=== PATIENT | male | born 1960 | race Caucasian/White ===

== ENCOUNTER → 2017-03-18 | Outpatient (CLI) | payer OTHER ==
[2016-05-14 12:10] VITALS: BP 139/81
[~2017-03-18] MED LIST: ASPI81TA2 PO; ATOR20TA58 PO; BUDE10.2 IH; BUSP30TA PO; HALO5TAB PO; IPRA3AMP IH; LEVO500T38 PO; LORA1TAB PO; MONT10TA6 PO; PRED-220 PO; PRED1TAB3 PO; QUET400T PO; SERT100T8 PO; TOPI50TA4 PO
--- NOTE | 2017-03-18 16:05 | RAD ---
Indication cough. Shortness of air. 2 AP views and a lateral view of the chest were obtained. Note is made of a previous examination 01/31/2016. There is moderate hyperexpansion and there are suggested background changes of emphysema. The heart and pulmonary vessels are within normal limits. An acute parenchymal infiltrate is not seen. Significant pleural fluid is not present. There is no pneumothorax. IMPRESSION: Chronic changes. No acute finding seen in the chest
== END | disposition home or self-care (01) ==
LOC: RAD 15:40
PROVIDERS: ATTEND Internal Medicine
DX: J20.8 Acute bronchitis due to other specified organisms (principal)
CPT/HCPCS: 71020

== ENCOUNTER 2017-03-21 10:36 | Inpatient (IN) | payer OTHER ==
[~2017-03-21] VITALS: Ht 188 cm; Wt 81.6 kg
[2017-03-21 12:30] VITALS: BP 115/88
[2017-03-21] MEDS ORDERED: IPRATRPIUM/ALBUTEROL 0.5/2.5MG 3 ML NEBU. NEB SCH (14:00)
[2017-03-21 14:06] LABS: BASO % 0 % (0-3); EOS % 0 % (0-3); HEMATOCRIT 42.6 % (39.0-53.0); HEMOGLOBIN 14.1 g/dL (13.0-17.5); LYMPH # 0.7 x10^3/uL (1.0-4.8); LYMPH % 8 % (24-48); MEAN CORPUSCULAR HEMOGLOBIN 32 pg (25-35); MEAN CORPUSCULAR HGB CONC 33 g/dL (31-37); MEAN CORPUSCULAR VOLUME 97 fL (79-100); MONO % 2 % (0-9); NEUT % 90 % (31-73); PLATELET COUNT 243 x10^3/uL (140-400); RED BLOOD COUNT 4.37 x10^6/uL (4.30-5.70); RED CELL DISTRIBUTION WIDTH 13.5 % (11.5-14.5); WHITE BLOOD COUNT 9.2 x10^3/uL (4.0-11.0)
[2017-03-21 14:10] LABS: ALBUMIN 3.4 g/dL (3.4-5.0); TOTAL PROTEIN 6.7 g/dL (6.4-8.2)
[2017-03-21 14:11] LABS: CREATININE 1.2 mg/dL (0.7-1.3); GFR 62.2; POTASSIUM 5.1 mmol/L (3.5-5.1); TOTAL BILIRUBIN 0.4 mg/dL (0.2-1.0)
[2017-03-21 14:32] LABS: PLT ESTIMATE ADEQUATE (ADEQUATE)
[2017-03-21] MEDS ORDERED: ACETAMINOPHEN 325 MG TABLET. PO PRN (14:45)
[2017-03-21] MEDS ORDERED: ALBUTEROL SULFATE 2.5 MG/3 ML NEBU. NEB PRN (14:45)
[2017-03-21 15:00] VITALS: BP 134/73
--- NOTE | 2017-03-21 15:07 | RAD ---
Indication shortness of breath. Duration of symptoms 2 weeks. PA and lateral views of the chest were obtained. Comparison is made to an examination 3 days earlier. Background changes of emphysema and/or fibrosis are noted. There is moderate hyperexpansion. The heart and pulmonary vessels are within normal limits. A definite acute parenchymal infiltrate in either lung is not seen. A significant change relative to the prior study is not apparent. IMPRESSION: Chronic changes. No definite acute finding or significant change
[2017-03-21] MEDS ORDERED: ProAir HFA IH (15:57)
[2017-03-21] MEDS ORDERED: VERAPAMIL 80 MG PO (15:57)
[2017-03-21] MEDS ORDERED: SERT100T PO (15:57)
[2017-03-21] MEDS ORDERED: ATOR20TA58 PO (15:57)
[2017-03-21] MEDS ORDERED: PANT40TA3 PO (15:57)
[2017-03-21] MEDS ORDERED: HALO2TAB PO (15:57)
[2017-03-21] MEDS ORDERED: CLON1TAB3 PO (15:57)
[2017-03-21] MEDS ORDERED: methylPREDNISolone SOD SUCC PF 125 MG/2 ML VIAL. IV SCH (16:00)
--- NOTE | 2017-03-21 16:34 | PDOC ---
Provider Note Provider Note dictated JOSE LUIS VELAZQUEZ MD Mar 21, 2017 16:34
[2017-03-21] MEDS: IPRATRPIUM/ALBUTEROL 0.5/2.5MG 3 ML NEBU. NEB SCH ×2 (16:45→20:02)
[2017-03-21] MEDS: CEFTRIAXONE SODIUM 1 GM in IV NORMAL SALINE 50ML 50 ML IV SCH (16:52)
[2017-03-21] MEDS: VERAPAMIL 40 MG TABLET. PO SCH ×2 (16:53→20:49)
[2017-03-21] MEDS: AZITHROMYCIN 250 MG TABLET. PO SCH (16:53)
[2017-03-21] MEDS: HALOPERIDOL 2 MG TABLET. PO SCH ×2 (16:53→20:50)
[2017-03-21] MEDS: methylPREDNISolone SOD SUCC PF 125 MG/2 ML VIAL. IV SCH ×2 (16:54→20:53)
[2017-03-21] MEDS: ASPIRIN CHEWABLE 81 MG TABLET. PO SCH (16:54)
--- NOTE | 2017-03-21 16:54 | CONS ---
DATE OF CONSULTATION: 03/21/2017 ATTENDING PHYSICIAN: Dr. Cristy Espana. REASON FOR CONSULTATION: Respiratory failure and dyspnea. HISTORY OF PRESENT ILLNESS: The patient is a 56-year-old male who has history of [id number] tobacco history and still continues to smoke cigarettes. He was here in the hospital in January with COPD exacerbation and now comes back to the hospital with complaint of shortness of breath. He has failed outpatient treatment. He still has a cough but is unable to produce any sputum. He feels like it is stuck in his chest. No fever, no chills. No chest pain, no headache. No nausea, vomiting, or diarrhea. He was seen in the office as a result. Since he failed outpatient treatment, he was hospitalized. A chest x-ray was reviewed, and it does not show any definite consolidation. He is currently on 2 liters of oxygen which he normally uses at home. PAST MEDICAL HISTORY: Significant for COPD, suspect severe history of carotid artery stenosis, history of pneumonia, CVA, depression, bipolar disorder, anxiety, chronic renal insufficiency, and CKD II. PAST SURGICAL HISTORY: Sinus surgery and hernia repair. FAMILY HISTORY: Mother with lung disease and heart disease. Dad had [place] in the 60s and . SOCIAL HISTORY: History of tobaccoism for last 40 years, a pack per day, and continues to smoke cigarettes. REVIEW OF SYSTEMS: Twelve-point systems obtained. Pertinent positives are discussed in my history of present illness, otherwise noncontributory. All systems that were negative were reviewed as well. PHYSICAL EXAMINATION: GENERAL: He is awake, following commands, mildly tachypneic. VITAL SIGNS: Blood pressure 134/73, afebrile, pulse ox 98% on 2 liters. NECK: Supple. LUNGS: With bilateral expiratory wheezes. CARDIOVASCULAR: Regular rate. ABDOMEN: Soft, nontender. EXTREMITIES: With no pitting edema. LABORATORY DATA: Reviewed. Sodium 139, potassium 5.1, BUN 13, creatinine 1.2, and white cell count 9.2. IMPRESSION: 1. Acute exacerbation of chronic obstructive pulmonary disease in a patient who has been a smoker for 40 years, and I suspect he has severe chronic obstructive pulmonary disease. 2. History of chronic respiratory failure. 3. Acute bronchitis with no definite consolidation seen on the chest x-ray. RECOMMENDATIONS: 1. Continue with present oxygen at 2 liters. 2. Change the dose of IV Solu-Medrol to 60 IV q. 8 h. 3. Increase DuoNebs to q. 4 h. 4. Mucolytics to help break the thick secretions. 5. Smoking cessation counseling provided. 6. Continue with empiric antibiotic. 7. We will follow along with you. JOSE LUIS VELAZQUEZ MD DR: ARSALAN/edu JOB#: [id number] / [id number] CARLOZ
[2017-03-21 19:49] VITALS: BP 128/73
[2017-03-21] MEDS: BUDESONIDE 0.5 MG/2 ML NEBU. NEB SCH (20:02)
[2017-03-21] MEDS: CLONAZEPAM 1 MG TABLET. PO SCH (20:49)
[2017-03-21] MEDS: QUEtiapine 50 MG TAB.ER.24H. PO SCH (20:50)
[2017-03-21] MEDS: MONTELUKAST SODIUM 10 MG TABLET. PO SCH (20:50)
[2017-03-21] MEDS: busPIRone 10 MG TABLET. PO SCH (20:50)
[2017-03-21] MEDS: ATORVASTATIN CALCIUM 20 MG TABLET PO SCH (20:50)
[2017-03-21] MEDS: GUAIFENESIN ER 600 MG TABLET.ER PO SCH (20:50)
[2017-03-21 23:15] VITALS: BP 126/70
[2017-03-22] MEDS: IPRATRPIUM/ALBUTEROL 0.5/2.5MG 3 ML NEBU. NEB SCH ×6 (00:02→23:48)
[2017-03-22 03:35] VITALS: BP 95/49
[2017-03-22 06:01] LABS: BASO % 0 % (0-3); EOS % 0 % (0-3); HEMATOCRIT 40.3 % (39.0-53.0); HEMOGLOBIN 13.2 g/dL (13.0-17.5); LYMPH # 0.4 x10^3/uL (1.0-4.8); LYMPH % 4 % (24-48); MEAN CORPUSCULAR HEMOGLOBIN 32 pg (25-35); MEAN CORPUSCULAR HGB CONC 33 g/dL (31-37); MEAN CORPUSCULAR VOLUME 99 fL (79-100); MONO % 2 % (0-9); NEUT % 94 % (31-73); PLATELET COUNT 213 x10^3/uL (140-400); RED BLOOD COUNT 4.09 x10^6/uL (4.30-5.70); RED CELL DISTRIBUTION WIDTH 13.7 % (11.5-14.5); WHITE BLOOD COUNT 10.5 x10^3/uL (4.0-11.0)
[2017-03-22 06:19] LABS: CREATININE 1.4 mg/dL (0.7-1.3); GFR 52.1; POTASSIUM 4.5 mmol/L (3.5-5.1)
[2017-03-22 07:00] VITALS: BP 104/56
[2017-03-22] MEDS: methylPREDNISolone SOD SUCC PF 125 MG/2 ML VIAL. IV SCH ×3 (08:24→21:07)
[2017-03-22] MEDS: busPIRone 10 MG TABLET. PO SCH ×2 (08:25→21:01)
[2017-03-22] MEDS: VERAPAMIL 40 MG TABLET. PO SCH ×3 (08:25→21:01)
[2017-03-22] MEDS: ASPIRIN CHEWABLE 81 MG TABLET. PO SCH (08:25)
[2017-03-22] MEDS: PANTOPRAZOLE 40 MG TABLET.DR. PO SCH (08:26)
[2017-03-22] MEDS: GUAIFENESIN ER 600 MG TABLET.ER PO SCH ×2 (08:26→21:02)
[2017-03-22] MEDS: AZITHROMYCIN 250 MG TABLET. PO SCH ×2 (08:26→09:00)
[2017-03-22] MEDS: SERTRALINE 50 MG TABLET. PO SCH (08:26)
[2017-03-22] MEDS: HALOPERIDOL 2 MG TABLET. PO SCH ×2 (08:26→21:02)
--- NOTE | 2017-03-22 08:55 | ACF ---
Admit Criteria Forms Admit Criteria Forms Admit Criteria Forms COPD Clinical Indications for Admission to Inpatient Care (Place 'X' for any and all applicable criteria): Admission is indicated for ANY ONE of the following (1)(2)(3): [X]I. Acute exacerbation by high-risk comorbidity (e.g., pneumonia, dysrhythmia, heart failure, pleural effusion, pneumothorax) or severe underlying COPD (e.g., steroid dependent) [ ]II. Inpatient admission required rather than observation care (see Chronic Obstructive Pulmonary Disease: Observation Care) because of ANY ONE of the following: [ ]a) New or pre-existing signs or symptoms of COPD (eg, dyspnea or Tachypnea at rest or with minimal activity) that persist despite outpatient and observation care treatment [ ]b) New-onset hypoxemia (room air SaO2 less than 90%, PO2 less than 60 mm Hg (8.0 kPa)) that persists despite outpatient and observation care treatment [ ]c) Worsening of pre-existing hypoxemia (eg, new or increased requirement for supplemental oxygen to maintain oxygenation at baseline level) that persists despite outpatient and observation care treatment, with oxygen treatment needs performable only in acute inpatient setting [ ]d) Hypercarbia (PCO2 greater than 40 mm Hg (5.3 kPa))-induced respiratory acidosis (pH less than 7.35) that persists despite outpatient and observation care treatment [ ]e) Supplemental oxygen or respiratory treatments for over 24 hours that are performable only in acute inpatient setting [ ]f) Chest tube placement with active evacuation (e.g., suction, drainage) (5) [ ]g) Other condition, treatment or monitoring requiring inpatient admission [ ]III. Planned invasive surgical or diagnostic procedures requiring acute- care hospitalization [ ]IV. Acute respiratory failure (e.g., uncompensated hypercarbia, severe hypoxemia) [ ]V. Severe comorbid condition (e.g., severe steroid myopathy, acute vertebral fracture) that has acutely worsened pulmonary function [ ]. Confusion state, lethargy, obtundation, stupor or coma Extended stay beyond goal length of stay may be needed for (31)(32): [ ]a ) Respiratory Failure. [ ]b) Severe or persisting hypoxemia or hypercarbia [ ]c) Severe or persistent dyspnea [ ]d) Comorbidities (e.g. chronic heart failure, atrial fibrillation with rapid response, pneumonia) [ ]e) Malnutrition The original [employer] content created by [facility] has been revised. The portions of the content which have been revised are identified through the use of italic text or in bold, and [facility] has neither reviewed nor approved the modified material. All other unmodified content is copyright [facility]. Please see references footnoted in the original [facility] [employer] edition 2016 SALEEM LOPEZ Mar 22, 2017 08:55
--- NOTE | 2017-03-22 09:00 | PDOC1 ---
STEVE MARTIN PASSENGER SERVICE REPRESENTATIVE 03/22/17 0900: HISTORY AND PHYSICAL Chief Complaint Chief Complaint This 56 year old male has been admitted with a chief complaint of acute bronchitis/AECOPD out patient treatment failure. He has been seen in the office since last week with AB and AECOPD. He was given cipro 500mg bid, Prednisone 60mg x 2d with tapering dose and to continue duoneb treatments qid. Three days later he was seen in the office with no improvement. BS remained coarse with wheezing. His prednisone was continued at 40mg daily for 3 additional days and to start tapering then. Obtain mucinex 1200mg bid and continue nebulizer treatments. Yesterday he was seen in the office with audible loose chest congestion and dyspnea had not improved. His BS remained coarse and decreased LL bilaterally. He was directly admitted to [facility]. Past Medical History Cardiovascular: HTN, Hyperlipidemia, Other Pulmonary: COPD, Pneumonia CENTRAL NERVOUS SYSTEM: CVA, Other Psych: Anxiety, Bipolar, Depression Renal/: Chronic renal insuff (CKD II ) Past Surgical History Past Surgical History: Hernia Repair Past Family History Family History: Cancer, Heart Disease, Hypertension Past Social History PSH h/o tobacco, negative h/o ETOH or illicit drug use. Review of Symptoms Review of Symptoms A 14 point ROS was completed with the following noted as positive: per HPI cough non productive, dyspnea, wheezing Other systems reviewed and negative. Medications Medications reviewed and reconciled Allergy Allergies Coded Allergies Type Severity Reaction Last Updated Verified codeine Allergy Intermediate RASH 05/14/16 Yes Physical Exam Physical Exam General appearance - alert, ill appearing, and in no distress Mental Status - alert, oriented to person, place, and time, affect appropriate to mood Head - normal Chest - increased areation, chest rattling ceased, + wheezing insp/exp throughout Heart - S1 and S2 normal Abdomen - soft, nontender, nondistended, no masses or organomegaly Neurological - alert and oriented Musculoskeletal - no muscular tenderness noted Extremities - no pedal edema Skin - warm and dry VTE Prophylaxis Ordered VTE Prophylaxis Devices: Yes VTE Pharmacological Prophylaxi: No Assessment Labs Laboratory Tests Test 03/21/17 13:45 03/22/17 05:50 White Blood Count 9.2x10^3/uL (4.0-11.0) 10.5x10^3/uL (4.0-11.0) Red Blood Count 4.37x10^6/uL (4.30-5.70) 4.09x10^6/uL (4.30-5.70) Hemoglobin 14.1g/dL (13.0-17.5) 13.2g/dL (13.0-17.5) Hematocrit 42.6% (39.0-53.0) 40.3% (39.0-53.0) Mean Corpuscular Volume 97fL (79-100) 99fL (79-100) Mean Corpuscular Hemoglobin 32pg (25-35) 32pg (25-35) Mean Corpuscular Hemoglobin Concent 33g/dL (31-37) 33g/dL (31-37) Red Cell Distribution Width 13.5% (11.5-14.5) 13.7% (11.5-14.5) Platelet Count 243x10^3/uL (140-400) 213x10^3/uL (140-400) Neutrophils (%) (Auto) 90% (31-73) 94% (31-73) Lymphocytes (%) (Auto) 8% (24-48) 4% (24-48) Monocytes (%) (Auto) 2% (0-9) 2% (0-9) Eosinophils (%) (Auto) 0% (0-3) 0% (0-3) Basophils (%) (Auto) 0% (0-3) 0% (0-3) Neutrophils # (Auto) 8.3x10^3uL (1.8-7.7) 9.8x10^3uL (1.8-7.7) Lymphocytes # (Auto) 0.7x10^3/uL (1.0-4.8) 0.4x10^3/uL (1.0-4.8) Monocytes # (Auto) 0.2x10^3/uL (0.0-1.1) 0.2x10^3/uL (0.0-1.1) Eosinophils # (Auto) 0.0x10^3/uL (0.0-0.7) 0.0x10^3/uL (0.0-0.7) Basophils # (Auto) 0.0x10^3/uL (0.0-0.2) 0.0x10^3/uL (0.0-0.2) Segmented Neutrophils % 90% (35-66) Lymphocytes % 6% (24-48) Atypical Lymphocytes % (Manual) 1% (0-0) Monocytes % 3% (0-10) Platelet Estimate Adequate (ADEQUATE) Sodium Level 139mmol/L (136-145) 141mmol/L (136-145) Potassium Level 5.1mmol/L (3.5-5.1) 4.5mmol/L (3.5-5.1) Chloride Level 101mmol/L (98-107) 102mmol/L (98-107) Carbon Dioxide Level 35mmol/L (21-32) 28mmol/L (21-32) Anion Gap 3 (6-14) 11 (6-14) Blood Urea Nitrogen 13mg/dL (8-26) 24mg/dL (8-26) Creatinine 1.2mg/dL (0.7-1.3) 1.4mg/dL (0.7-1.3) Estimated GFR (Cockcroft-Gault) 62.2 52.1 BUN/Creatinine Ratio 11 (6-20) Glucose Level 122mg/dL (70-99) 143mg/dL (70-99) Calcium Level 9.0mg/dL (8.5-10.1) 9.0mg/dL (8.5-10.1) Total Bilirubin 0.4mg/dL (0.2-1.0) Aspartate Amino Transf (AST/SGOT) 12U/L (15-37) Alanine Aminotransferase (ALT/SGPT) 21U/L (16-63) Alkaline Phosphatase 76U/L (46-116) Total Protein 6.7g/dL (6.4-8.2) Albumin 3.4g/dL (3.4-5.0) Albumin/Globulin Ratio 1.0 (1.0-1.7) Laboratory Tests Test 03/21/17 13:45 03/22/17 05:50 White Blood Count 9.2x10^3/uL (4.0-11.0) 10.5x10^3/uL (4.0-11.0) Red Blood Count 4.37x10^6/uL (4.30-5.70) 4.09x10^6/uL (4.30-5.70) Hemoglobin 14.1g/dL (13.0-17.5) 13.2g/dL (13.0-17.5) Hematocrit 42.6% (39.0-53.0) 40.3% (39.0-53.0) Mean Corpuscular Volume 97fL (79-100) 99fL (79-100) Mean Corpuscular Hemoglobin 32pg (25-35) 32pg (25-35) Mean Corpuscular Hemoglobin Concent 33g/dL (31-37) 33g/dL (31-37) Red Cell Distribution Width 13.5% (11.5-14.5) 13.7% (11.5-14.5) Platelet Count 243x10^3/uL (140-400) 213x10^3/uL (140-400) Neutrophils (%) (Auto) 90% (31-73) 94% (31-73) Lymphocytes (%) (Auto) 8% (24-48) 4% (24-48) Monocytes (%) (Auto) 2% (0-9) 2% (0-9) Eosinophils (%) (Auto) 0% (0-3) 0% (0-3) Basophils (%) (Auto) 0% (0-3) 0% (0-3) Neutrophils # (Auto) 8.3x10^3uL (1.8-7.7) 9.8x10^3uL (1.8-7.7) Lymphocytes # (Auto) 0.7x10^3/uL (1.0-4.8) 0.4x10^3/uL (1.0-4.8) Monocytes # (Auto) 0.2x10^3/uL (0.0-1.1) 0.2x10^3/uL (0.0-1.1) Eosinophils # (Auto) 0.0x10^3/uL (0.0-0.7) 0.0x10^3/uL (0.0-0.7) Basophils # (Auto) 0.0x10^3/uL (0.0-0.2) 0.0x10^3/uL (0.0-0.2) Segmented Neutrophils % 90% (35-66) Lymphocytes % 6% (24-48) Atypical Lymphocytes % (Manual) 1% (0-0) Monocytes % 3% (0-10) Platelet Estimate Adequate (ADEQUATE) Sodium Level 139mmol/L (136-145) 141mmol/L (136-145) Potassium Level 5.1mmol/L (3.5-5.1) 4.5mmol/L (3.5-5.1) Chloride Level 101mmol/L (98-107) 102mmol/L (98-107) Carbon Dioxide Level 35mmol/L (21-32) 28mmol/L (21-32) Anion Gap 3 (6-14) 11 (6-14) Blood Urea Nitrogen 13mg/dL (8-26) 24mg/dL (8-26) Creatinine 1.2mg/dL (0.7-1.3) 1.4mg/dL (0.7-1.3) Estimated GFR (Cockcroft-Gault) 62.2 52.1 BUN/Creatinine Ratio 11 (6-20) Glucose Level 122mg/dL (70-99) 143mg/dL (70-99) Calcium Level 9.0mg/dL (8.5-10.1) 9.0mg/dL (8.5-10.1) Total Bilirubin 0.4mg/dL (0.2-1.0) Aspartate Amino Transf (AST/SGOT) 12U/L (15-37) Alanine Aminotransferase (ALT/SGPT) 21U/L (16-63) Alkaline Phosphatase 76U/L (46-116) Total Protein 6.7g/dL (6.4-8.2) Albumin 3.4g/dL (3.4-5.0) Albumin/Globulin Ratio 1.0 (1.0-1.7) Plan Plan IMPRESSION: 1. acute on chronic respiratory failure with acute bronchitis and AECOPD underlying 2.. acute bronchitis out patient treatment failure 3. AECOPD/emphysema 4. HTN 5. hyperlipidemia 6. h/o CVA 7. chronic ALEJANDRO 8. [id number] 9. bipolar disorder 10. bilateral carotid artery stenosis 11. CKD II 12. depression PLAN: Acute respiratory failure pulmonary consult nebulizer q4h mucinex 1200mg bid Solumedrol 125mg initiated and decreased to 60mg IV q8h Rocephin IV/zithromax po continue zithromax x total 3d, then stop HTN stable CKD II Admit BUN 12 03/23 24 Cr 1.21 1.2 steroids initiated no acute renal failure monitor DVT/GI prophylaxis SCD/YOVANY PPI For more details regarding further plans, please refer to the orders. JEANNETTE NOEL MD 03/22/17 1005: HISTORY AND PHYSICAL Plan Plan Failed aggressive outpatient Rx. The patient was seen and examined by me. Chart reviewed and plan of care formulated. Discussed with, reviewed and agree with RECEPTION SPECIALIST's notes, plan of care and orders with modifications as necessary. For more details regarding further plans, please refer to the orders. STEVE MARTIN APRN Mar 22, 2017 09:00 JEANNETTE NOEL MD Mar 22, 2017 10:05
--- NOTE | 2017-03-22 09:24 | PDOC ---
PULMONARY PROGRESS NOTES Subjective feels better Vitals Vital Signs Date Time Temp Pulse Resp B/P Pulse Ox O2 Delivery O2 Flow Rate FiO2 03/22/17 08:25 69 104/56 03/22/17 07:00 97.9 18 97 Room Air 97.9 03/22/17 03:52 3.0 General: Alert, Oriented X4, No acute distress Lungs: Wheezing (mild) Cardiovascular: S1, S2 Abdomen: Soft Neuro Exam: Alert Extremities: No Edema Skin: Warm Labs Laboratory Tests Test 03/21/17 13:45 03/22/17 05:50 White Blood Count 9.2x10^3/uL (4.0-11.0) 10.5x10^3/uL (4.0-11.0) Red Blood Count 4.37x10^6/uL (4.30-5.70) 4.09x10^6/uL (4.30-5.70) Hemoglobin 14.1g/dL (13.0-17.5) 13.2g/dL (13.0-17.5) Hematocrit 42.6% (39.0-53.0) 40.3% (39.0-53.0) Mean Corpuscular Volume 97fL (79-100) 99fL (79-100) Mean Corpuscular Hemoglobin 32pg (25-35) 32pg (25-35) Mean Corpuscular Hemoglobin Concent 33g/dL (31-37) 33g/dL (31-37) Red Cell Distribution Width 13.5% (11.5-14.5) 13.7% (11.5-14.5) Platelet Count 243x10^3/uL (140-400) 213x10^3/uL (140-400) Neutrophils (%) (Auto) 90% (31-73) 94% (31-73) Lymphocytes (%) (Auto) 8% (24-48) 4% (24-48) Monocytes (%) (Auto) 2% (0-9) 2% (0-9) Eosinophils (%) (Auto) 0% (0-3) 0% (0-3) Basophils (%) (Auto) 0% (0-3) 0% (0-3) Neutrophils # (Auto) 8.3x10^3uL (1.8-7.7) 9.8x10^3uL (1.8-7.7) Lymphocytes # (Auto) 0.7x10^3/uL (1.0-4.8) 0.4x10^3/uL (1.0-4.8) Monocytes # (Auto) 0.2x10^3/uL (0.0-1.1) 0.2x10^3/uL (0.0-1.1) Eosinophils # (Auto) 0.0x10^3/uL (0.0-0.7) 0.0x10^3/uL (0.0-0.7) Basophils # (Auto) 0.0x10^3/uL (0.0-0.2) 0.0x10^3/uL (0.0-0.2) Segmented Neutrophils % 90% (35-66) Lymphocytes % 6% (24-48) Atypical Lymphocytes % (Manual) 1% (0-0) Monocytes % 3% (0-10) Platelet Estimate Adequate (ADEQUATE) Sodium Level 139mmol/L (136-145) 141mmol/L (136-145) Potassium Level 5.1mmol/L (3.5-5.1) 4.5mmol/L (3.5-5.1) Chloride Level 101mmol/L (98-107) 102mmol/L (98-107) Carbon Dioxide Level 35mmol/L (21-32) 28mmol/L (21-32) Anion Gap 3 (6-14) 11 (6-14) Blood Urea Nitrogen 13mg/dL (8-26) 24mg/dL (8-26) Creatinine 1.2mg/dL (0.7-1.3) 1.4mg/dL (0.7-1.3) Estimated GFR (Cockcroft-Gault) 62.2 52.1 BUN/Creatinine Ratio 11 (6-20) Glucose Level 122mg/dL (70-99) 143mg/dL (70-99) Calcium Level 9.0mg/dL (8.5-10.1) 9.0mg/dL (8.5-10.1) Total Bilirubin 0.4mg/dL (0.2-1.0) Aspartate Amino Transf (AST/SGOT) 12U/L (15-37) Alanine Aminotransferase (ALT/SGPT) 21U/L (16-63) Alkaline Phosphatase 76U/L (46-116) Total Protein 6.7g/dL (6.4-8.2) Albumin 3.4g/dL (3.4-5.0) Albumin/Globulin Ratio 1.0 (1.0-1.7) Laboratory Tests Test 03/21/17 13:45 03/22/17 05:50 White Blood Count 9.2x10^3/uL (4.0-11.0) 10.5x10^3/uL (4.0-11.0) Red Blood Count 4.37x10^6/uL (4.30-5.70) 4.09x10^6/uL (4.30-5.70) Hemoglobin 14.1g/dL (13.0-17.5) 13.2g/dL (13.0-17.5) Hematocrit 42.6% (39.0-53.0) 40.3% (39.0-53.0) Mean Corpuscular Volume 97fL (79-100) 99fL (79-100) Mean Corpuscular Hemoglobin 32pg (25-35) 32pg (25-35) Mean Corpuscular Hemoglobin Concent 33g/dL (31-37) 33g/dL (31-37) Red Cell Distribution Width 13.5% (11.5-14.5) 13.7% (11.5-14.5) Platelet Count 243x10^3/uL (140-400) 213x10^3/uL (140-400) Neutrophils (%) (Auto) 90% (31-73) 94% (31-73) Lymphocytes (%) (Auto) 8% (24-48) 4% (24-48) Monocytes (%) (Auto) 2% (0-9) 2% (0-9) Eosinophils (%) (Auto) 0% (0-3) 0% (0-3) Basophils (%) (Auto) 0% (0-3) 0% (0-3) Neutrophils # (Auto) 8.3x10^3uL (1.8-7.7) 9.8x10^3uL (1.8-7.7) Lymphocytes # (Auto) 0.7x10^3/uL (1.0-4.8) 0.4x10^3/uL (1.0-4.8) Monocytes # (Auto) 0.2x10^3/uL (0.0-1.1) 0.2x10^3/uL (0.0-1.1) Eosinophils # (Auto) 0.0x10^3/uL (0.0-0.7) 0.0x10^3/uL (0.0-0.7) Basophils # (Auto) 0.0x10^3/uL (0.0-0.2) 0.0x10^3/uL (0.0-0.2) Segmented Neutrophils % 90% (35-66) Lymphocytes % 6% (24-48) Atypical Lymphocytes % (Manual) 1% (0-0) Monocytes % 3% (0-10) Platelet Estimate Adequate (ADEQUATE) Sodium Level 139mmol/L (136-145) 141mmol/L (136-145) Potassium Level 5.1mmol/L (3.5-5.1) 4.5mmol/L (3.5-5.1) Chloride Level 101mmol/L (98-107) 102mmol/L (98-107) Carbon Dioxide Level 35mmol/L (21-32) 28mmol/L (21-32) Anion Gap 3 (6-14) 11 (6-14) Blood Urea Nitrogen 13mg/dL (8-26) 24mg/dL (8-26) Creatinine 1.2mg/dL (0.7-1.3) 1.4mg/dL (0.7-1.3) Estimated GFR (Cockcroft-Gault) 62.2 52.1 BUN/Creatinine Ratio 11 (6-20) Glucose Level 122mg/dL (70-99) 143mg/dL (70-99) Calcium Level 9.0mg/dL (8.5-10.1) 9.0mg/dL (8.5-10.1) Total Bilirubin 0.4mg/dL (0.2-1.0) Aspartate Amino Transf (AST/SGOT) 12U/L (15-37) Alanine Aminotransferase (ALT/SGPT) 21U/L (16-63) Alkaline Phosphatase 76U/L (46-116) Total Protein 6.7g/dL (6.4-8.2) Albumin 3.4g/dL (3.4-5.0) Albumin/Globulin Ratio 1.0 (1.0-1.7) Medications Active Scripts Medications Dose Route/Sig Days Date Category Atorvastatin Calcium 20 Mg Tablet 20 Mg PO HS 03/21/17 Reported [ProAir HFA] 90 Mcg IH QID 03/21/17 Reported [verapamil 80mg TID] 80 Mg PO TID 03/21/17 Reported Protonix (Pantoprazole Sodium) 40 Mg Tablet.dr 1 Tab PO DAILY 03/21/17 Reported Zoloft (Sertraline Hcl) 100 Mg Tablet 1.5 Tab PO DAILY 03/21/17 Reported Clonazepam 1 Mg Tablet 1 Tab PO QHS 03/21/17 Reported Haloperidol 2 Mg Tablet 1 Tab PO BID 03/21/17 Reported Levaquin (Levofloxacin) 500 Mg Tablet 1 Tab PO DAILY 02/03/16 Rx Prednisone 10 Mg Tablet 10 Mg PO DAILY PRN 02/03/16 Rx Duoneb 0.5-3(2.5) Mg/3 Ml (Albuterol/Ipratropium) 3 Ml Ampul.neb 3 Ml IH QID 09/16/15 Rx Topiramate 50 Mg Tablet 1 Tab PO BID 09/15/15 Reported Symbicort 160-4.5 Mcg Inhaler (Budesonide/Formoterol Fumarate) 10.2 Gm Hfa.aer.ad 2 Puff IH BID 09/15/15 Reported Quetiapine Fumarate 400 Mg Tablet 400 Mg PO HS 09/15/15 Reported Singulair Tablet (Montelukast Sodium) 10 Mg Tablet 10 Mg PO HS 09/15/15 Reported Lorazepam 1 Mg Tablet 1 Mg PO BID 09/15/15 Reported Buspirone Hcl 30 Mg Tablet 1 Tab PO BID 09/15/15 Reported Aspirin 81 Mg Tab.chew 81 Tab PO DAILY 09/15/15 Reported Impression . 1. Acute exacerbation of chronic obstructive pulmonary disease in a patient who has been a smoker for 40 years, and I suspect he has severe chronic obstructive pulmonary disease. 2. History of chronic respiratory failure. 3. Acute bronchitis with no definite consolidation seen on the chest x-ray. Plan . 1. Continue with present oxygen at 2 liters. 2. Change the dose of IV Solu-Medrol to 60 IV q. 8 h. 3. Increase DuoNebs to q. 4 h. 4. Mucolytics to help break the thick secretions. 5. Smoking cessation counseling provided. 6. Continue with empiric antibiotic. JOSE LUIS VELAZQUEZ MD Mar 22, 2017 09:24
[2017-03-22] MEDS: BUDESONIDE 0.5 MG/2 ML NEBU. NEB SCH ×2 (09:48→19:56)
[2017-03-22 11:00] VITALS: BP 110/61
[2017-03-22 14:57] VITALS: BP 110/55
[2017-03-22] MEDS: CEFTRIAXONE SODIUM 1 GM in IV NORMAL SALINE 50ML 50 ML IV SCH (16:42)
[2017-03-22 19:36] VITALS: BP 115/59
[2017-03-22] MEDS: ATORVASTATIN CALCIUM 20 MG TABLET PO SCH (21:01)
[2017-03-22] MEDS: QUEtiapine 50 MG TAB.ER.24H. PO SCH (21:01)
[2017-03-22] MEDS: CLONAZEPAM 1 MG TABLET. PO SCH (21:02)
[2017-03-22] MEDS: MONTELUKAST SODIUM 10 MG TABLET. PO SCH (21:02)
[2017-03-22 23:11] VITALS: BP 104/58
[2017-03-23 03:52] VITALS: BP 94/39
[2017-03-23] MEDS: IPRATRPIUM/ALBUTEROL 0.5/2.5MG 3 ML NEBU. NEB SCH ×6 (04:13→23:20)
[2017-03-23] MEDS: BUDESONIDE 0.5 MG/2 ML NEBU. NEB SCH ×2 (06:23→21:04)
[2017-03-23 07:02] VITALS: BP 99/52
--- NOTE | 2017-03-23 08:21 | PDOC ---
PULMONARY PROGRESS NOTES Subjective feels better Vitals Vital Signs Date Time Temp Pulse Resp B/P Pulse Ox O2 Delivery O2 Flow Rate FiO2 03/23/17 07:02 97.5 82 17 99/52 96 Nasal Cannula 3.0 97.5 General: Alert, Oriented X4, No acute distress Lungs: Wheezing (resolved) Cardiovascular: S1, S2 Abdomen: Soft Neuro Exam: Alert Extremities: No Edema Skin: Warm Labs Laboratory Tests Test 03/21/17 13:45 03/22/17 05:50 White Blood Count 9.2x10^3/uL (4.0-11.0) 10.5x10^3/uL (4.0-11.0) Red Blood Count 4.37x10^6/uL (4.30-5.70) 4.09x10^6/uL (4.30-5.70) Hemoglobin 14.1g/dL (13.0-17.5) 13.2g/dL (13.0-17.5) Hematocrit 42.6% (39.0-53.0) 40.3% (39.0-53.0) Mean Corpuscular Volume 97fL (79-100) 99fL (79-100) Mean Corpuscular Hemoglobin 32pg (25-35) 32pg (25-35) Mean Corpuscular Hemoglobin Concent 33g/dL (31-37) 33g/dL (31-37) Red Cell Distribution Width 13.5% (11.5-14.5) 13.7% (11.5-14.5) Platelet Count 243x10^3/uL (140-400) 213x10^3/uL (140-400) Neutrophils (%) (Auto) 90% (31-73) 94% (31-73) Lymphocytes (%) (Auto) 8% (24-48) 4% (24-48) Monocytes (%) (Auto) 2% (0-9) 2% (0-9) Eosinophils (%) (Auto) 0% (0-3) 0% (0-3) Basophils (%) (Auto) 0% (0-3) 0% (0-3) Neutrophils # (Auto) 8.3x10^3uL (1.8-7.7) 9.8x10^3uL (1.8-7.7) Lymphocytes # (Auto) 0.7x10^3/uL (1.0-4.8) 0.4x10^3/uL (1.0-4.8) Monocytes # (Auto) 0.2x10^3/uL (0.0-1.1) 0.2x10^3/uL (0.0-1.1) Eosinophils # (Auto) 0.0x10^3/uL (0.0-0.7) 0.0x10^3/uL (0.0-0.7) Basophils # (Auto) 0.0x10^3/uL (0.0-0.2) 0.0x10^3/uL (0.0-0.2) Segmented Neutrophils % 90% (35-66) Lymphocytes % 6% (24-48) Atypical Lymphocytes % (Manual) 1% (0-0) Monocytes % 3% (0-10) Platelet Estimate Adequate (ADEQUATE) Sodium Level 139mmol/L (136-145) 141mmol/L (136-145) Potassium Level 5.1mmol/L (3.5-5.1) 4.5mmol/L (3.5-5.1) Chloride Level 101mmol/L (98-107) 102mmol/L (98-107) Carbon Dioxide Level 35mmol/L (21-32) 28mmol/L (21-32) Anion Gap 3 (6-14) 11 (6-14) Blood Urea Nitrogen 13mg/dL (8-26) 24mg/dL (8-26) Creatinine 1.2mg/dL (0.7-1.3) 1.4mg/dL (0.7-1.3) Estimated GFR (Cockcroft-Gault) 62.2 52.1 BUN/Creatinine Ratio 11 (6-20) Glucose Level 122mg/dL (70-99) 143mg/dL (70-99) Calcium Level 9.0mg/dL (8.5-10.1) 9.0mg/dL (8.5-10.1) Total Bilirubin 0.4mg/dL (0.2-1.0) Aspartate Amino Transf (AST/SGOT) 12U/L (15-37) Alanine Aminotransferase (ALT/SGPT) 21U/L (16-63) Alkaline Phosphatase 76U/L (46-116) Total Protein 6.7g/dL (6.4-8.2) Albumin 3.4g/dL (3.4-5.0) Albumin/Globulin Ratio 1.0 (1.0-1.7) Medications Active Scripts Medications Dose Route/Sig Days Date Category Atorvastatin Calcium 20 Mg Tablet 20 Mg PO HS 03/21/17 Reported [ProAir HFA] 90 Mcg IH QID 03/21/17 Reported [verapamil 80mg TID] 80 Mg PO TID 03/21/17 Reported Protonix (Pantoprazole Sodium) 40 Mg Tablet.dr 1 Tab PO DAILY 03/21/17 Reported Zoloft (Sertraline Hcl) 100 Mg Tablet 1.5 Tab PO DAILY 03/21/17 Reported Clonazepam 1 Mg Tablet 1 Tab PO QHS 03/21/17 Reported Haloperidol 2 Mg Tablet 1 Tab PO BID 03/21/17 Reported Levaquin (Levofloxacin) 500 Mg Tablet 1 Tab PO DAILY 02/03/16 Rx Prednisone 10 Mg Tablet 10 Mg PO DAILY PRN 02/03/16 Rx Duoneb 0.5-3(2.5) Mg/3 Ml (Albuterol/Ipratropium) 3 Ml Ampul.neb 3 Ml IH QID 09/16/15 Rx Topiramate 50 Mg Tablet 1 Tab PO BID 09/15/15 Reported Symbicort 160-4.5 Mcg Inhaler (Budesonide/Formoterol Fumarate) 10.2 Gm Hfa.aer.ad 2 Puff IH BID 09/15/15 Reported Quetiapine Fumarate 400 Mg Tablet 400 Mg PO HS 09/15/15 Reported Singulair Tablet (Montelukast Sodium) 10 Mg Tablet 10 Mg PO HS 09/15/15 Reported Lorazepam 1 Mg Tablet 1 Mg PO BID 09/15/15 Reported Buspirone Hcl 30 Mg Tablet 1 Tab PO BID 09/15/15 Reported Aspirin 81 Mg Tab.chew 81 Tab PO DAILY 09/15/15 Reported Impression . 1. Acute exacerbation of chronic obstructive pulmonary disease in a patient who has been a smoker for 40 years, and I suspect he has severe chronic obstructive pulmonary disease. 2. History of chronic respiratory failure. 3. Acute bronchitis with no definite consolidation seen on the chest x-ray. Plan . 1. Continue with present oxygen at 2 liters. 2. can change to PO steroids 3. Duo Nebs 4. Mucolytics to help break the thick secretions. 5. Smoking cessation counseling provided. 6. Continue with empiric antibiotic. 7. clinically better. can go home JOSE LUIS VELAZQUEZ MD Mar 23, 2017 08:21
[2017-03-23] MEDS: SERTRALINE 50 MG TABLET. PO SCH (09:15)
[2017-03-23] MEDS: VERAPAMIL 40 MG TABLET. PO SCH ×3 (09:19→21:37)
[2017-03-23] MEDS: AZITHROMYCIN 250 MG TABLET. PO SCH (09:20)
[2017-03-23] MEDS: HALOPERIDOL 2 MG TABLET. PO SCH ×2 (09:20→21:37)
[2017-03-23] MEDS: PANTOPRAZOLE 40 MG TABLET.DR. PO SCH (09:20)
[2017-03-23] MEDS: ASPIRIN CHEWABLE 81 MG TABLET. PO SCH (09:20)
[2017-03-23] MEDS: busPIRone 10 MG TABLET. PO SCH ×2 (09:20→21:37)
[2017-03-23] MEDS: GUAIFENESIN ER 600 MG TABLET.ER PO SCH ×2 (09:20→21:37)
[2017-03-23] MEDS: methylPREDNISolone SOD SUCC PF 125 MG/2 ML VIAL. IV SCH ×2 (09:21→14:28)
[2017-03-23 10:49] VITALS: BP 90/42
[2017-03-23 15:08] VITALS: BP 114/61
--- NOTE | 2017-03-23 15:12 | PDOC ---
PROGRESS NOTES Subjective Subjective feels good ,anxious to go home Objective Objective Vital Signs Date Time Temp Pulse Resp B/P Pulse Ox O2 Delivery O2 Flow Rate FiO2 03/23/17 15:08 97.7 77 18 114/61 98 Nasal Cannula 3.0 97.7 Intake and Output 03/23/17 07:00 Intake Total 540 ml Output Total 400 ml Balance 140 ml Intake Oral 540 ml Output Urine Total 400 ml # Voids 4 Physical Exam Abdomen: Normal bowel sounds, Soft Heart: Regular rate, Normal S1 Extremities: No clubbing General: Alert HEENT: Atraumatic Lungs: Clear to auscultation MUSCULOSKELETAL: No swelling Neuro: Normal gait Psych/Mental Status: Mental status NL Assessment Assessment IMPRESSION: 1. acute on chronic respiratory failure with acute bronchitis and AECOPD underlying 2.. acute bronchitis out patient treatment failure 3. AECOPD/emphysema 4. HTN 5. hyperlipidemia 6. h/o CVA 7. chronic ALEJANDRO 8. [id number] 9. bipolar disorder 10. bilateral carotid artery stenosis 11. CKD II 12. depression PLAN:change to po meds. home tomorrow. Acute respiratory failure pulmonary consult nebulizer q4h mucinex 1200mg bid Solumedrol 125mg initiated and decreased to 60mg IV q8h Rocephin IV/zithromax po continue zithromax x total 3d, then stop Problems: Comment Review of Relevant I have reviewed the following items megan (where applicable) has been applied. Medications Current Medications Guaifenesin (Mucinex) 600 mg BID PO Last administered on 03/23/17t 09:20; Start 03/22/17 at 21:00 Vitals/I & O Vital Sign - Last 24 Hours 03/22/17 03/22/17 03/22/17 03/22/17 16:55 19:36 19:50 20:00 Temp 97.7 97.7 Pulse 75 Resp 20 B/P 115/59 Pulse Ox 95 92 O2 Delivery Nasal Cannula Nasal Cannula Nasal Cannula Nasal Cannula O2 Flow Rate 3.0 3.0 3.0 3.0 03/22/17 03/22/17 03/22/17 03/23/17 21:01 23:11 23:48 03:43 Temp 97.5 97.5 Pulse 75 72 Resp 20 B/P 115/59 104/58 Pulse Ox 94 O2 Delivery Nasal Cannula Nasal Cannula Nasal Cannula O2 Flow Rate 3.0 3.0 3.0 03/23/17 03/23/17 03/23/17 03/23/17 03:52 06:23 07:02 08:00 Temp 97.7 97.5 97.7 97.5 Pulse 70 82 Resp 17 B/P 94/39 99/52 Pulse Ox 97 96 O2 Delivery Nasal Cannula Nasal Cannula Nasal Cannula Nasal Cannula O2 Flow Rate 3.0 3.0 3.0 3.0 03/23/17 03/23/17 03/23/17 03/23/17 09:19 10:49 11:11 14:00 Temp 97.6 97.6 Pulse 75 83 83 Resp 18 B/P 117/61 90/42 90/42 Pulse Ox 97 97 O2 Delivery Nasal Cannula Nasal Cannula O2 Flow Rate 3.0 3.0 03/23/17 03/23/17 14:46 15:08 Temp 97.7 97.7 Pulse 77 Resp 18 B/P 114/61 Pulse Ox 97 98 O2 Delivery Nasal Cannula Nasal Cannula O2 Flow Rate 3.0 3.0 Intake and Output 03/22/17 03/22/17 03/23/17 15:00 23:00 07:00 Intake Total 120 ml 420 ml Output Total 400 ml Balance -280 ml 420 ml ONEL SOMERS MD Mar 23, 2017 15:12
[2017-03-23 19:56] VITALS: BP 107/65
[2017-03-23] MEDS ORDERED: QUEtiapine 50 MG TAB.ER.24H. PO SCH (21:00)
[2017-03-23] MEDS ORDERED: QUEtiapine 300 MG TAB.ER.24H. PO SCH (21:00)
[2017-03-23] MEDS: MONTELUKAST SODIUM 10 MG TABLET. PO SCH (21:37)
[2017-03-23] MEDS: ATORVASTATIN CALCIUM 20 MG TABLET PO SCH (21:37)
[2017-03-23] MEDS: CLONAZEPAM 1 MG TABLET. PO SCH (21:37)
[2017-03-23 23:10] VITALS: BP 110/49
[2017-03-24] MEDS: IPRATRPIUM/ALBUTEROL 0.5/2.5MG 3 ML NEBU. NEB SCH ×3 (03:00→12:01)
[2017-03-24 03:55] VITALS: BP 92/45
[2017-03-24 04:13] LABS: CALCIUM 8.7 mg/dL (8.5-10.1); CREATININE 1.1 mg/dL (0.7-1.3); GFR 68.8; POTASSIUM 4.3 mmol/L (3.5-5.1)
[2017-03-24 07:00] VITALS: BP 88/48
[2017-03-24] MEDS: BUDESONIDE 0.5 MG/2 ML NEBU. NEB SCH (07:59)
[2017-03-24] MEDS: AZITHROMYCIN 250 MG TABLET. PO SCH (08:47)
[2017-03-24] MEDS: ASPIRIN CHEWABLE 81 MG TABLET. PO SCH (08:48)
[2017-03-24] MEDS: PANTOPRAZOLE 40 MG TABLET.DR. PO SCH (08:48)
[2017-03-24] MEDS: busPIRone 10 MG TABLET. PO SCH (08:48)
[2017-03-24] MEDS: VERAPAMIL 40 MG TABLET. PO SCH (08:49)
[2017-03-24] MEDS: SERTRALINE 50 MG TABLET. PO SCH (08:49)
[2017-03-24] MEDS: HALOPERIDOL 2 MG TABLET. PO SCH (08:49)
[2017-03-24] MEDS: GUAIFENESIN ER 600 MG TABLET.ER PO SCH (08:49)
[2017-03-24] MEDS ORDERED: PREDNISONE 10 MG TABLET PO SCH (09:00)
--- NOTE | 2017-03-24 09:13 | PDOC ---
PULMONARY PROGRESS NOTES Subjective feels better Vitals Vital Signs Date Time Temp Pulse Resp B/P Pulse Ox O2 Delivery O2 Flow Rate FiO2 03/24/17 08:49 85 88/48 03/24/17 08:01 96 Nasal Cannula 2.0 03/24/17 07:00 97.5 20 97.5 General: Alert, Oriented X4, No acute distress Lungs: Wheezing (resolved) Cardiovascular: S1, S2 Abdomen: Soft Neuro Exam: Alert Extremities: No Edema Skin: Warm Labs Laboratory Tests Test 03/24/17 03:24 Sodium Level 140mmol/L (136-145) Potassium Level 4.3mmol/L (3.5-5.1) Chloride Level 103mmol/L (98-107) Carbon Dioxide Level 32mmol/L (21-32) Anion Gap 5 (6-14) Blood Urea Nitrogen 31mg/dL (8-26) Creatinine 1.1mg/dL (0.7-1.3) Estimated GFR (Cockcroft-Gault) 68.8 Glucose Level 118mg/dL (70-99) Calcium Level 8.7mg/dL (8.5-10.1) Laboratory Tests Test 03/24/17 03:24 Sodium Level 140mmol/L (136-145) Potassium Level 4.3mmol/L (3.5-5.1) Chloride Level 103mmol/L (98-107) Carbon Dioxide Level 32mmol/L (21-32) Anion Gap 5 (6-14) Blood Urea Nitrogen 31mg/dL (8-26) Creatinine 1.1mg/dL (0.7-1.3) Estimated GFR (Cockcroft-Gault) 68.8 Glucose Level 118mg/dL (70-99) Calcium Level 8.7mg/dL (8.5-10.1) Medications Active Scripts Medications Dose Route/Sig Days Date Category Atorvastatin Calcium 20 Mg Tablet 20 Mg PO HS 03/21/17 Reported [ProAir HFA] 90 Mcg IH QID 03/21/17 Reported [verapamil 80mg TID] 80 Mg PO TID 03/21/17 Reported Protonix (Pantoprazole Sodium) 40 Mg Tablet.dr 1 Tab PO DAILY 03/21/17 Reported Zoloft (Sertraline Hcl) 100 Mg Tablet 1.5 Tab PO DAILY 4/20/17 Reported Clonazepam 1 Mg Tablet 1 Tab PO QHS 03/21/17 Reported Haloperidol 2 Mg Tablet 1 Tab PO BID 03/21/17 Reported Levaquin (Levofloxacin) 500 Mg Tablet 1 Tab PO DAILY 02/03/16 Rx Prednisone 10 Mg Tablet 10 Mg PO DAILY PRN 02/03/16 Rx Duoneb 0.5-3(2.5) Mg/3 Ml (Albuterol/Ipratropium) 3 Ml Ampul.neb 3 Ml IH QID 09/16/15 Rx Topiramate 50 Mg Tablet 1 Tab PO BID 09/15/15 Reported Symbicort 160-4.5 Mcg Inhaler (Budesonide/Formoterol Fumarate) 10.2 Gm Hfa.aer.ad 2 Puff IH BID 09/15/15 Reported Quetiapine Fumarate 400 Mg Tablet 400 Mg PO HS 09/15/15 Reported Singulair Tablet (Montelukast Sodium) 10 Mg Tablet 10 Mg PO HS 09/15/15 Reported Lorazepam 1 Mg Tablet 1 Mg PO BID 09/15/15 Reported Buspirone Hcl 30 Mg Tablet 1 Tab PO BID 09/15/15 Reported Aspirin 81 Mg Tab.chew 81 Tab PO DAILY 09/15/15 Reported Impression . 1. Acute exacerbation of chronic obstructive pulmonary disease in a patient who has been a smoker for 40 years, and I suspect he has severe chronic obstructive pulmonary disease. 2. History of chronic respiratory failure. 3. Acute bronchitis with no definite consolidation seen on the chest x-ray. Plan . 1. Continue with present oxygen at 2 liters. 2. can change to PO steroids 3. Duo Nebs 4. Mucolytics to help break the thick secretions. 5. Smoking cessation counseling provided. 6. Continue with empiric antibiotic. 7. clinically better. can go home JOSE LUIS VELAZQUEZ MD Mar 24, 2017 09:13
[2017-03-24 11:00] VITALS: BP 113/55
--- NOTE | 2017-03-24 11:12 | PDOC ---
PROGRESS NOTES Subjective Subjective feels good ,ready to go home Objective Objective Vital Signs Date Time Temp Pulse Resp B/P Pulse Ox O2 Delivery O2 Flow Rate FiO2 03/24/17 11:00 97.5 82 20 113/55 94 Nasal Cannula 3.0 97.5 Intake and Output 03/24/17 07:00 Intake Total 1240 ml Output Total 300 ml Balance 940 ml Intake Oral 1240 ml Output Urine Total 300 ml # Voids 5 Physical Exam Abdomen: Normal bowel sounds, Soft Heart: Regular rate, Normal S1 Extremities: No clubbing General: Alert HEENT: Atraumatic Lungs: Clear to auscultation MUSCULOSKELETAL: No swelling Neuro: Normal gait Psych/Mental Status: Mental status NL Assessment Assessment IMPRESSION: 1. acute on chronic respiratory failure with acute bronchitis and AECOPD underlying 2.. acute bronchitis out patient treatment failure 3. AECOPD/emphysema 4. HTN 5. hyperlipidemia 6. h/o CVA 7. chronic ALEJANDRO 8. [id number] 9. bipolar disorder 10. bilateral carotid artery stenosis 11. CKD II 12. depression PLAN:stable for discharge. smoking counseling done. pt is on home oxygen 2 L. h has nebulizer at home changed to po meds yesterday. home today. Acute respiratory failure pulmonary consult nebulizer q4h mucinex 1200mg bid Solumedrol 125mg initiated and decreased to 60mg IV q8h Rocephin IV/zithromax po continue zithromax x total 3d, then stop Problems: Comment Review of Relevant I have reviewed the following items megan (where applicable) has been applied. Labs Laboratory Tests Test 03/24/17 03:24 Sodium Level 140mmol/L (136-145) Potassium Level 4.3mmol/L (3.5-5.1) Chloride Level 103mmol/L (98-107) Carbon Dioxide Level 32mmol/L (21-32) Anion Gap 5 (6-14) Blood Urea Nitrogen 31mg/dL (8-26) Creatinine 1.1mg/dL (0.7-1.3) Estimated GFR (Cockcroft-Gault) 68.8 Glucose Level 118mg/dL (70-99) Calcium Level 8.7mg/dL (8.5-10.1) Medications Current Medications Prednisone (Prednisone) 50 mg DAILY PO Last administered on 03/24/17t 08:46; Start 03/24/17 at 09:00 Quetiapine Fumarate (SEROquel XR) 100 mg HS PO Last administered on 03/23/17 21:37; Start 03/23/17 at 21:00 Quetiapine Fumarate (SEROquel XR) 300 mg HS PO Last administered on 03/23/17 21:37; Start 03/23/17 at 21:00 Vitals/I & O Vital Sign - Last 24 Hours 03/23/17 03/23/17 03/23/17 03/23/17 11:11 14:00 14:46 15:08 Temp 97.7 97.7 Pulse 83 77 Resp 18 B/P 90/42 114/61 Pulse Ox 97 97 98 O2 Delivery Nasal Cannula Nasal Cannula Nasal Cannula O2 Flow Rate 3.0 3.0 3.0 03/23/17 03/23/17 03/23/17 03/23/17 19:56 20:00 21:05 21:05 Temp 97.8 97.8 Pulse 83 Resp 18 B/P 107/65 Pulse Ox 93 94 94 O2 Delivery Nasal Cannula Nasal Cannula Nasal Cannula Nasal Cannula O2 Flow Rate 3.0 3.0 2.0 2.0 03/23/17 03/23/17 03/23/17 03/24/17 21:37 23:10 23:20 03:00 Temp 97.3 97.3 Pulse 83 79 Resp 16 B/P 107/65 110/49 Pulse Ox 95 O2 Delivery Nasal Cannula Nasal Cannula Nasal Cannula O2 Flow Rate 3.0 2.0 2.0 03/24/17 03/24/17 03/24/17 03/24/17 03:55 07:00 08:00 08:01 Temp 97.9 97.5 97.9 97.5 Pulse 75 85 Resp 16 20 B/P 92/45 88/48 Pulse Ox 96 96 96 O2 Delivery Nasal Cannula Nasal Cannula Nasal Cannula Nasal Cannula O2 Flow Rate 3.0 3.0 3.0 2.0 03/24/17 03/24/17 08:49 11:00 Temp 97.5 97.5 Pulse 85 82 Resp 20 B/P 88/48 113/55 Pulse Ox 94 O2 Delivery Nasal Cannula O2 Flow Rate 3.0 Intake and Output 03/23/17 03/23/17 03/24/17 15:00 23:00 07:00 Intake Total 1000 ml 240 ml Output Total 300 ml Balance 700 ml 240 ml ONEL SOMERS MD Mar 24, 2017 11:12
[2017-03-24] MEDS ORDERED: AZIT250T6 PO (11:16)
[2017-03-24] MEDS ORDERED: PRED-220 PO (11:16)
== END 2017-03-24 12:55 | disposition home or self-care (01) | DRG 189 ==
LOC: 6 SOUTH 11:28
PROVIDERS: ADMIT Internal Medicine; ATTEND Internal Medicine
DX: J96.20 Acute and chronic respiratory failure, unspecified whether with hypoxia or hypercapnia (principal); J44.0 Chronic obstructive pulmonary disease with (acute) lower respiratory infection; J44.1 Chronic obstructive pulmonary disease with (acute) exacerbation; E78.5 Hyperlipidemia, unspecified; F31.9 Bipolar disorder, unspecified; J20.9 Acute bronchitis, unspecified; I65.23 Occlusion and stenosis of bilateral carotid arteries; F41.9 Anxiety disorder, unspecified; I12.9 Hypertensive chronic kidney disease with stage 1 through stage 4 chronic kidney disease, or unspecified chronic kidney disease; N18.2 Chronic kidney disease, stage 2 (mild); F17.210 Nicotine dependence, cigarettes, uncomplicated; Z82.49 Family history of ischemic heart disease and other diseases of the circulatory system; Z86.73 Personal history of transient ischemic attack (TIA), and cerebral infarction without residual deficits; Z87.01 Personal history of pneumonia (recurrent); Z83.6 Family history of other diseases of the respiratory system; Z71.6 Tobacco abuse counseling; Z88.5 Allergy status to narcotic agent
CPT/HCPCS: 36415; 71020; 80048; 80053; 85007; 85027; 94250; 94640; 94760; J0696; J2930; J7512; J7620; Q0144

== ENCOUNTER → 2017-07-12 | Outpatient (CLI) | payer OTHER ==
[~2017-07-12] MED LIST changes: +ASPI-630 PO; -ASPI81TA2 PO; +AZIT250T6 PO; +CLON1TAB3 PO; +HALO2TAB PO; -LEVO500T38 PO; +LEVO500T59 PO; +PANT40TA3 PO; +ProAir HFA IH; +SERT100T PO; -TOPI50TA4 PO; +TOPI50TA8 PO; +VERAPAMIL 80 MG PO
== END | disposition home or self-care (01) ==
LOC: OPS 12:19
PROVIDERS: ATTEND Internal Medicine
DX: I12.9 Hypertensive chronic kidney disease with stage 1 through stage 4 chronic kidney disease, or unspecified chronic kidney disease (principal); N18.5 Chronic kidney disease, stage 5; D63.1 Anemia in chronic kidney disease; R60.9 Edema, unspecified
CPT/HCPCS: 87086

== ENCOUNTER 2017-07-26 12:19 | Emergency (ER) | payer OTHER ==
[2017-07-26 14:02] LABS: BILIRUBIN,URINE NEGATIVE (NEG); GLUCOSE,URINE NEGATIVE (NEG); NITRITE,URINE POSITIVE (NEG); PH,URINE 7.5; PROTEIN,URINE NEGATIVE (NEG-TRACE); UROBILINOGEN,URINE 0.2 mg/dL (0.2 mg/dL)
[2017-07-26 14:15] LABS: POTASSIUM ISTAT 4.1 mmol/L (3.5-5.0)
--- NOTE | 2017-07-26 14:17 | PHYS DOC ---
Past Medical History Past Medical History: Bipolar, COPD Past Surgical History: Other Additional Past Surgical Histo: Hernia Alcohol Use: None Drug Use: None Adult General Chief Complaint Chief Complaint: URINARY RETENTION HPI HPI Patient is a 56 year old male who presents with complaint of urinary retention. The patient was referred to the emergency department by his primary care provider after patient stated that he has not been able to urinate since last night. Patient has had history of previous urinary retention requiring need for a Pierre catheter at that time. The patient states that he is having severe pressure in his lower abdomen and pelvis which she attributes to urinary retention. Patient denies any fevers, shortness of breath, chest pain, or other symptoms. Patient rates his pain as 10 out of 10. Review of Systems Review of Systems Constitutional: Denies fever or chills [] Eyes: Denies change in visual acuity, redness, or eye pain [] HENT: Denies nasal congestion or sore throat [] Respiratory: Denies cough or shortness of breath [] Cardiovascular: Denies chest pain or edema [] GI: Abdominal pain, denies nausea, vomiting, bloody stools or diarrhea [] : Urinary retention [] Musculoskeletal: Denies back pain or joint pain [] Integument: Denies rash or skin lesions [] Neurologic: Denies headache, focal weakness or sensory changes [] Allergies Allergies Allergies Coded Allergies Type Severity Reaction Last Updated Verified codeine Allergy Intermediate RASH 07/12/17 Yes Physical Exam Physical Exam Constitutional: Alert, afebrile, appears in moderate to severe discomfort. [] HENT: Normocephalic, atraumatic, bilateral external ears normal, oropharynx moist, no oral exudates, nose normal. [] Eyes: PERRLA, EOMI, conjunctiva normal, no discharge. [] Neck: Normal range of motion, no tenderness, supple, no stridor. [] Cardiovascular:Heart rate regular rhythm, no murmur [] Lungs & Thorax: Bilateral breath sounds clear to auscultation [] Abdomen: Bowel sounds normal, soft, bladder height palpated near umbilicus, no masses, no pulsatile masses. [] Skin: Warm, dry, no erythema, no rash. [] Back: No tenderness, no CVA tenderness. [] Extremities: No tenderness, no cyanosis, no clubbing, ROM intact, no edema. [] Neurologic: Alert and oriented X 3, normal motor function, normal sensory function, no focal deficits noted. [] Current Patient Data Vital Signs Vital Signs Date Time Temp Pulse Resp B/P (MAP) Pulse Ox O2 Delivery O2 Flow Rate FiO2 07/26/17 12:28 98.6 92 20 151/99 (116) 96 Nasal Cannula 2.0 98.6 Lab Values Laboratory Tests Test 07/26/17 13:50 07/26/17 13:58 Urine Collection Type U cath Urine Color Yellow Urine Clarity Clear Urine pH 7.5 Urine Specific [place] 1.010 Urine Protein Negative mg/dL (NEG-TRACE) Urine Glucose (UA) Negative mg/dL (NEG) Urine Ketones (Stick) Negative mg/dL (NEG) Urine Blood Negative (NEG) Urine Nitrite Positive (NEG) Urine Bilirubin Negative (NEG) Urine Urobilinogen Dipstick 0.2 mg/dL (0.2 mg/dL) Urine Leukocyte Esterase Negative (NEG) Urine RBC 1-2 /HPF (0-2) Urine WBC 1-4 /HPF (0-4) Urine Bacteria Many /HPF (0-FEW) POC Hemoglobin 16.0 g/dL (14-18) POC Hematocrit 47 % (37-52) POC Sodium 138 mmol/L (135-145) POC Potassium 4.1 mmol/L (3.5-5.0) POC Chloride 97 mmol/L (98-110) L POC Total CO2 26 mmol/L (23-32) Anion Gap 20 mmol/L (6-14) H POC Blood Urea Nitrogen 13 mg/dL (8-26) POC Creatinine 1.0 mg/dL (0.5-1.4) Glucose Level 94 mg/dL (70-99) POC Ionized Calcium (Tanisha) 1.23 mmol/L (1.13-1.32) Laboratory Tests 07/26/17 13:58 EKG EKG Not performed [] Radiology/Procedures Radiology/Procedures Limited bedside bladder ultrasound performed and interpreted by myself: Bladder distention, calculated volume 1087 mL. Course & Med Decision Making Course & Med Decision Making Pertinent Labs and Imaging studies reviewed. (See chart for details) Patient had a Pierre catheter placed in the emergency department with immediate return of approximately 1000 mL of urine. The patient states he feels much better at this time. The patient's BUN and creatinine were stable. Patient was found have evidence of urinary tract infection and started on Cipro in the emergency department. The patient will continue on a seven-day course of Cipro for outpatient treatment. Advised patient follow-up with his primary doctor in the next 2-3 days for reevaluation and referral to urology for further management. Advised return emergency department for any worsening symptoms. Patient voiced understanding and in agreement with treatment plan. Dragon Disclaimer Dragon Disclaimer This electronic medical record was generated, in whole or in part, using a voice recognition dictation system. Departure Departure Impression: Primary Impression: Acute urinary retention Additional Impression: Urinary tract infection Disposition: HOME, SELF-CARE Condition: IMPROVED Referrals: JEANNETTE NOEL MD (PCP) Patient Instructions: Urinary Retention, Acute, Male, Urinary Tract Infection Additional Instructions: Follow-up with your primary doctor in 2-3 days for reevaluation. He will likely need referral to urology for further management. Return to the emergency department for any worsening symptoms. Scripts Tamsulosin Hcl (FLOMAX) 0.4 Mg Cap.er.24h 1 CAP PO DAILY, #30 CAP 0 Refills Prov: MARK CHAPIN MD 07/26/17 Ciprofloxacin Hcl (CIPRO) 500 Mg Tablet 1 TAB PO BID, #14 TAB Prov: MARK CHAPIN MD 07/26/17 Problem Qualifiers Additional Impression: Urinary tract infection Urinary tract infection type: acute cystitis Hematuria presence: without hematuria Qualified Codes: N30.00 - Acute cystitis without hematuria MARK CHAPIN MD Jul 26, 2017 14:17
[2017-07-26 14:23] LABS: BACTERIA,URINE MANY /HPF (0-FEW)
[2017-07-26 14:30] VITALS: BP 155/78
[2017-07-26] MEDS ORDERED: CIPR500T94 PO (14:34)
[2017-07-26] MEDS ORDERED: TAMS0.4C97 PO (14:34)
[2017-07-26] MEDS ORDERED: CIPROFLOXACIN HCL 250 MG TABLET. PO ONE (14:45)
== END 2017-07-26 15:10 | disposition home or self-care (01) ==
LOC: ER 12:19
DX: N39.0 Urinary tract infection, site not specified (principal); R33.9 Retention of urine, unspecified; J44.9 Chronic obstructive pulmonary disease, unspecified; F31.9 Bipolar disorder, unspecified; Z98.890 Other specified postprocedural states; Z88.5 Allergy status to narcotic agent
CPT/HCPCS: 51702; 80047; 81001; 87086; 99285-25

== ENCOUNTER 2017-09-13 13:15 | Inpatient (IN) | payer OTHER ==
[~2017-09-13] VITALS: Ht 188 cm; Wt 80.7 kg
[~2017-09-13 13:15] MED LIST changes: +CIPR500T94 PO; +TAMS0.4C97 PO
[2017-09-13 14:45] VITALS: BP 127/70
[2017-09-13 15:00] VITALS: BP 127/70
[2017-09-13] MEDS ORDERED: AZITHROMYCIN 250 MG TABLET. PO SCH (16:30)
[2017-09-13] MEDS ORDERED: methylPREDNISolone SOD SUCC PF 125 MG/2 ML VIAL. IV ONE (16:30)
[2017-09-13] MEDS ORDERED: PROAIR 90 MCG IH SCH (17:00)
[2017-09-13 17:36] LABS: BILIRUBIN,URINE NEGATIVE (NEG); GLUCOSE,URINE 100 mg/dL (NEG); NITRITE,URINE NEGATIVE (NEG); PH,URINE 8.5; PROTEIN,URINE >=300 mg/dL (NEG-TRACE)
[2017-09-13] MEDS ORDERED: PANTOPRAZOLE 40 MG TABLET.DR. PO ONE (17:45)
--- NOTE | 2017-09-13 17:45 | PDOC ---
Provider Note Provider Note [id number] acute on chronic resp fail ae of copd acute bronchitis see orders VIKAS PRUETT MD Sep 13, 2017 17:45
[2017-09-13 17:51] LABS: BACTERIA,URINE 0 /HPF (0-FEW); RBC,URINE >40 /HPF (0-2); WBC,URINE OCC /HPF (0-4)
[2017-09-13] MEDS ORDERED: ENOXAPARIN 30 MG/0.3 ML SYRINGE. SQ SCH (18:00)
--- NOTE | 2017-09-13 18:08 | CONS ---
DATE OF CONSULTATION: 09/13/2017 REASON FOR CONSULTATION: I was asked to see this 56-year-old gentleman for [id number] respiratory failure, hypoxemia, shortness of breath, cough. HISTORY OF PRESENT ILLNESS: He has a history of [id number] smoking, continues to smoke about 1 pack per day. He is on continuous oxygen at 3 liters per minute via nasal cannula. He started to have increased shortness of breath and cough for the past couple of days. He has chest tightness, but denies chest pain. He denies nasal congestion, fever or chills. He has gastroesophageal reflux symptoms. PAST MEDICAL HISTORY: Chronic respiratory failure, COPD, carotid artery stenosis, CVA, depression, bipolar disorder, anxiety, chronic kidney disease, status post hernia repair. FAMILY HISTORY: Father had coronary artery disease. SOCIAL HISTORY: History of [id number] smoking, continues to smoke 1 pack per day. ALLERGIES: CODEINE. MEDICATIONS: Currently, he is on Protonix, Solu-Medrol, verapamil, Topamax, BuSpar, Singulair, Pulmicort, DuoNeb, azithromycin, Rocephin. REVIEW OF SYSTEMS: As mentioned above, other systems are otherwise negative. PHYSICAL EXAMINATION: GENERAL: This is an elderly gentleman, looks older than his age. VITAL SIGNS: His O2 saturation on 2 liters of oxygen is 97%, respiratory rate 26, heart rate 110, blood pressure 127/70, temperature 98. HEENT: Normocephalic, atraumatic. Pupils equal, round, reactive to light. He has poor dentition. Nose is clear. NECK: Positive JVD. No lymphadenopathy. CARDIOVASCULAR: Tachycardic. CHEST: Inspection, he appears tachypneic. LUNGS: There is bilateral end expiratory wheezing and crackles. ABDOMEN: Soft. Bowel sounds are good. There is no mass. EXTREMITIES: There is no edema. LYMPHATICS: There is no lymphadenopathy. NEUROLOGIC: Alert and oriented. SKIN: Chronic changes. LABORATORY DATA: Lab data is pending at this point. He had a CT of the chest done in 09/2015, which does show emphysema, mild basilar opacities, mild coronary artery disease. IMPRESSION: 1. [id number] respiratory failure, multifactorial in etiology including acute exacerbation of chronic obstructive pulmonary disease, acute bronchitis versus pneumonia, rule out right-sided heart failure versus others. 2. Acute exacerbation of chronic obstructive pulmonary disease. 3. Acute bronchitis versus pneumonia. 4. Tobacco habituation. 5. History of cerebrovascular accident. PLAN AND RECOMMENDATIONS: 1. Titrate FiO2 to keep O2 saturation 92%. 2. Bronchodilator. 3. Inhaled corticosteroid. 4. I agree with Solu-Medrol. 5. I agree with azithromycin and Rocephin. 6. Start Protonix for stress ulcer prophylaxis. 7. Start Lovenox for DVT prophylaxis. 8. I agree with chest x-ray. 9. Monitor respiratory status very closely. 10. The findings and recommendations were discussed with the patient and RN. I have answered all of the patient's questions. He understood and agreed to proceed with the plan. Thank you very much for allowing me to participate in care of this very nice gentleman. VIKAS PRUETT M.D. DR: Leigha JOB#: [id number] / [id number]
--- NOTE | 2017-09-13 18:24 | EKG ---
[facility] [address] [place] [address] Test Date: 2017-09-13 Test Time: 18:20:17 Pat Name: JADON HONEYCUTT Department: Room: [facility] Gender: M Care Process Manager: : 1960 Requested By: JEANNETTE NOEL Order Number: [id number] Reading MD: Flavia Flores Measurements Intervals [place] Rate: 106 P: 67 MD: 120 QRS: 42 QRSD: 72 T: 56 QT: 312 QTc: 416 Interpretive Statements SINUS TACHYCARDIA OTHERWISE NORMAL ECG Electronically Signed On 09-15-2017 19:16:18 CDT by Flavia Flores
[2017-09-13] MEDS: AZITHROMYCIN 500 MG in IV NORMAL SALINE 250ML 250 ML IV SCH (18:46)
[2017-09-13 19:34] VITALS: BP 159/93
[2017-09-13] MEDS: BUDESONIDE 0.5 MG/2 ML NEBU. NEB SCH (20:09)
[2017-09-13] MEDS: IPRATRPIUM/ALBUTEROL 0.5/2.5MG 3 ML NEBU. IH SCH (20:09)
[2017-09-13] MEDS ORDERED: CIPROFLOXACIN HCL 250 MG TABLET. PO SCH (21:00)
[2017-09-13] MEDS: ATORVASTATIN CALCIUM 20 MG TABLET PO SCH (21:08)
[2017-09-13] MEDS: VERAPAMIL 40 MG TABLET. PO SCH (21:09)
[2017-09-13] MEDS: TOPIRAMATE 100 MG TABLET. PO SCH (21:09)
[2017-09-13] MEDS: levETIRAcetam 500 MG TABLET PO SCH (21:09)
[2017-09-13] MEDS: MONTELUKAST SODIUM 10 MG TABLET. PO SCH (21:09)
[2017-09-13] MEDS: busPIRone 10 MG TABLET. PO SCH (21:10)
[2017-09-13 23:01] VITALS: BP 115/70
[2017-09-13 23:25] LABS: BASO % 0 % (0-3); EOS % 0 % (0-3); HEMOGLOBIN 13.6 g/dL (13.0-17.5); LYMPH # 0.4 x10^3/uL (1.0-4.8); LYMPH % 3 % (24-48); MEAN CORPUSCULAR HEMOGLOBIN 32 pg (25-35); MEAN CORPUSCULAR HGB CONC 33 g/dL (31-37); MEAN CORPUSCULAR VOLUME 97 fL (79-100); MONO % 1 % (0-9); NEUT % 96 % (31-73); PLATELET COUNT 240 x10^3/uL (140-400); RED BLOOD COUNT 4.21 x10^6/uL (4.30-5.70); RED CELL DISTRIBUTION WIDTH 13.2 % (11.5-14.5); WHITE BLOOD COUNT 11.1 x10^3/uL (4.0-11.0)
[2017-09-13 23:34] LABS: ALBUMIN/GLOBULIN RATIO 0.9 (1.0-1.7); CALCIUM 8.8 mg/dL (8.5-10.1); CREATININE 0.9 mg/dL (0.7-1.3); GFR 86.7; POTASSIUM 4.6 mmol/L (3.5-5.1); TOTAL BILIRUBIN 0.3 mg/dL (0.2-1.0); TOTAL PROTEIN 6.2 g/dL (6.4-8.2)
[2017-09-14] MEDS: methylPREDNISolone SOD SUCC PF 40 MG/ML VIAL. IV SCH ×2 (00:16→06:07)
[2017-09-14] MEDS: ALBUTEROL SULFATE 2.5 MG/3 ML NEBU. NEB PRN (01:22)
[2017-09-14 01:46] LABS: PLT ESTIMATE ADEQUATE (ADEQUATE)
[2017-09-14 03:07] VITALS: BP 132/82
[2017-09-14 05:44] LABS: BASO % 0 % (0-3); EOS % 0 % (0-3); HEMATOCRIT 40.9 % (39.0-53.0); HEMOGLOBIN 13.5 g/dL (13.0-17.5); LYMPH # 0.4 x10^3/uL (1.0-4.8); LYMPH % 4 % (24-48); MEAN CORPUSCULAR HEMOGLOBIN 32 pg (25-35); MEAN CORPUSCULAR HGB CONC 33 g/dL (31-37); MEAN CORPUSCULAR VOLUME 97 fL (79-100); MONO % 1 % (0-9); NEUT % 95 % (31-73); PLATELET COUNT 243 x10^3/uL (140-400); RED BLOOD COUNT 4.22 x10^6/uL (4.30-5.70); RED CELL DISTRIBUTION WIDTH 13.3 % (11.5-14.5); WHITE BLOOD COUNT 10.8 x10^3/uL (4.0-11.0)
[2017-09-14 06:15] LABS: CALCIUM 8.9 mg/dL (8.5-10.1); CREATININE 0.8 mg/dL (0.7-1.3); GFR 99.3; POTASSIUM 4.8 mmol/L (3.5-5.1); TOTAL BILIRUBIN 0.3 mg/dL (0.2-1.0); TOTAL PROTEIN 6.1 g/dL (6.4-8.2)
[2017-09-14] MEDS ORDERED: PANTOPRAZOLE 40 MG TABLET.DR. PO SCH ×2 (07:30)
[2017-09-14] MEDS: IPRATRPIUM/ALBUTEROL 0.5/2.5MG 3 ML NEBU. IH SCH ×4 (07:32→20:54)
[2017-09-14] MEDS: BUDESONIDE 0.5 MG/2 ML NEBU. NEB SCH ×2 (07:33→20:54)
[2017-09-14 07:36] VITALS: BP 144/84
[2017-09-14] MEDS: TAMSULOSIN 0.4 MG CAP.ER.24H. PO SCH (08:15)
[2017-09-14] MEDS: busPIRone 10 MG TABLET. PO SCH ×2 (08:15→20:17)
[2017-09-14] MEDS: SERTRALINE 50 MG TABLET. PO SCH (08:15)
[2017-09-14] MEDS: levETIRAcetam 500 MG TABLET PO SCH ×2 (08:15→20:15)
[2017-09-14] MEDS: TOPIRAMATE 100 MG TABLET. PO SCH ×2 (08:17→20:15)
[2017-09-14] MEDS: VERAPAMIL 40 MG TABLET. PO SCH ×3 (08:17→20:15)
[2017-09-14] MEDS ORDERED: predniSONE 10 MG TABLET PO SCH (09:00)
--- NOTE | 2017-09-14 10:06 | RAD ---
2 view CXR: Clinical indications: Shortness of air. Comparison: March 21, 2017. Findings: Chronic hyperinflation and interstitial lung disease is seen consistent with COPD. No new lung infiltrate or pleural effusion or pulmonary edema or lung mass or pneumothorax is seen. The heart size, pulmonary vasculature, mediastinum and both rossy are unremarkable. The osseous structures appear intact. Impression: No new radiographic abnormality is seen. COPD.
[2017-09-14 10:52] VITALS: BP 120/67
--- NOTE | 2017-09-14 11:16 | PDOC ---
Provider Note Provider Note Patient seen. History and Physical dictated. See dictation#[id number] JEANNETTE NOEL MD Sep 14, 2017 11:16
--- NOTE | 2017-09-14 11:59 | HP ---
ADMIT DATE: 09/13/2017 HISTORY OF PRESENT ILLNESS: This 56 years old male who lives at home and who is known to have a history of severe COPD and recurrent exacerbation of COPD and noncompliance, has been having cough, congestion with brownish expectoration for the last 2 weeks. The patient was treated with oral steroids and Augmentin as outpatient, but as per patient's sister, the patient has not been taking his medications. He has stopped the medications and all day he goes out to smoke. He continued to get worse and when this was reported by the sister, the patient was asked to come back to the office and in the office, the patient was noted to have acute on chronic respiratory failure along with exacerbation of COPD and the patient was quite dyspneic and because of that, the patient has been admitted to [facility] for further management. REVIEW OF SYSTEMS: The patient has cough, congestion with brownish expectoration. The patient admits to not taking his medications. He is not sure why he did that. He admits to dyspnea. He denies any fever or chills. He denies any nausea or vomiting. He admits to some weakness. His appetite has been poor. Other systems reviewed and are negative. PAST MEDICAL HISTORY: The patient was last admitted here in March 2017. He has a history of recurrent exacerbation of COPD, hypertension, hyperlipidemia, pneumonia, CVA, anxiety, bipolar disorder, depression, chronic renal insufficiency, CKD 2. PAST SURGICAL HISTORY: Positive for hernia repair. FAMILY HISTORY: Positive for cancer, heart disease, and hypertension. SOCIAL HISTORY: Past history of smoking. No history of alcoholism or drug abuse. MEDICATIONS: I reviewed the medications. ALLERGIES: CODEINE. PHYSICAL EXAMINATION: GENERAL: The patient is a middle-aged male who appears to be much older than his stated age. He is both acutely and chronically ill, in mild to moderate respiratory distress. The patient is alert and oriented. VITAL SIGNS: Temperature 97.9, pulse 102 per minute, blood pressure 144/84 per minute, respirations 18 per minute on oxygen by nasal cannula 2-3 liters per minute. SKIN: Warm and dry. Skin turgor decreased. No cyanosis. THROAT: Congested. EYES: Pupils reacting to light. Conjunctivae pale. Sclerae muddy. NECK: Supple. JVP normal. No thyromegaly. Trachea midline. LUNGS: Bilateral wheezing. CARDIOVASCULAR: S1, S2 regular. ABDOMEN: Soft, nontender, no guarding, no rigidity. Bowel sounds present. EXTREMITIES: No edema. CENTRAL NERVOUS SYSTEM: Generalized weakness. Moves all extremities. Alert and appropriate. LABORATORY FINDINGS: WBC count was 11.1 yesterday, 10.8 today, hemoglobin 13.6, platelet count 240,000. Sodium 142, potassium 4.6, BUN 17, creatinine 0.9, total protein 6.2, albumin 3.0. Urinalysis positive for blood, leukocyte esterase moderate, more than 40 rbc's, occasional wbc's. This is a Pierre specimen. The patient has been using a Pierre catheter for the last few weeks because of urinary retention. Chest x-ray did not show any acute changes. IMPRESSION: 1. Acute on chronic respiratory failure. 2. Acute exacerbation of chronic obstructive pulmonary disease. 3. Hypertension. 4. Acute bronchitis. 5. Noncompliance. 6. Bipolar disorder. 7. History of cerebrovascular accident. 8. Anxiety. 9. Depression. 10. Hyperlipidemia. PLAN: I have started the patient on IV Rocephin and Zithromax. Continue IV steroids. The patient also has recent urinary retention that is new. Urologist has not been able to take the Pierre catheter out as every time they do that, he starts having urinary retention. He is supposed to see the urologist on 18 of this month for further testing. I will consult Dr. Lopez for pulmonary evaluation and management. Long-term as well as short-term prognosis of this patient is very poor due to his multiple medical problems and noncompliance. The patient is again advised to stop smoking. JEANNETTE NOEL MD DR: SNEHA/edu JOB#: [id number] / [id number]
--- NOTE | 2017-09-14 13:09 | PDOC ---
PULMONARY PROGRESS NOTES Subjective sob, cough, better, has gerd symptoms, no chest pain Vitals Vital Signs Date Time Temp Pulse Resp B/P (MAP) Pulse Ox O2 Delivery O2 Flow Rate FiO2 09/14/17 11:04 Nasal Cannula 2.0 09/14/17 10:52 97.9 84 18 120/67 (84) 97 97.9 ROS: No Nausea, No Chest Pain General: Alert, Oriented X4, No acute distress HEENT: Other (nc at perrl ) Lungs: Other (deminished) Cardiovascular: S1, S2 Abdomen: Soft, Non-tender Neuro Exam: Alert, Oriented Extremities: No Edema Skin: Warm Labs Laboratory Tests Test 09/13/17 17:10 09/13/17 22:15 09/13/17 22:30 09/14/17 04:30 Urine Collection Type Unknown Urine Color Red Urine Clarity Cloudy Urine pH 8.5 Urine Specific [place] 1.020 Urine Protein >=300 mg/dL (NEG-TRACE) Urine Glucose (UA) 100 mg/dL (NEG) Urine Ketones (Stick) Negative mg/dL (NEG) Urine Blood Large (NEG) Urine Nitrite Negative (NEG) Urine Bilirubin Negative (NEG) Urine Urobilinogen Dipstick 1.0 mg/dL (0.2 mg/dL) Urine Leukocyte Esterase Moderate (NEG) Urine RBC >40 /HPF (0-2) Urine WBC Occ /HPF (0-4) Urine Squamous Epithelial Cells None /LPF Urine Bacteria 0 /HPF (0-FEW) White Blood Count 11.1 x10^3/uL (4.0-11.0) 10.8 x10^3/uL (4.0-11.0) Red Blood Count 4.21 x10^6/uL (4.30-5.70) 4.22 x10^6/uL (4.30-5.70) Hemoglobin 13.6 g/dL (13.0-17.5) 13.5 g/dL (13.0-17.5) Hematocrit 41.0 % (39.0-53.0) 40.9 % (39.0-53.0) Mean Corpuscular Volume 97 fL (79-100) 97 fL (79-100) Mean Corpuscular Hemoglobin 32 pg (25-35) 32 pg (25-35) Mean Corpuscular Hemoglobin Concent 33 g/dL (31-37) 33 g/dL (31-37) Red Cell Distribution Width 13.2 % (11.5-14.5) 13.3 % (11.5-14.5) Platelet Count 240 x10^3/uL (140-400) 243 x10^3/uL (140-400) Neutrophils (%) (Auto) 96 % (31-73) 95 % (31-73) Lymphocytes (%) (Auto) 3 % (24-48) 4 % (24-48) Monocytes (%) (Auto) 1 % (0-9) 1 % (0-9) Eosinophils (%) (Auto) 0 % (0-3) 0 % (0-3) Basophils (%) (Auto) 0 % (0-3) 0 % (0-3) Neutrophils # (Auto) 10.6 x10^3uL (1.8-7.7) 10.3 x10^3uL (1.8-7.7) Lymphocytes # (Auto) 0.4 x10^3/uL (1.0-4.8) 0.4 x10^3/uL (1.0-4.8) Monocytes # (Auto) 0.1 x10^3/uL (0.0-1.1) 0.1 x10^3/uL (0.0-1.1) Eosinophils # (Auto) 0.0 x10^3/uL (0.0-0.7) 0.0 x10^3/uL (0.0-0.7) Basophils # (Auto) 0.0 x10^3/uL (0.0-0.2) 0.0 x10^3/uL (0.0-0.2) Segmented Neutrophils % 97 % (35-66) Band Neutrophils % 2 % (0-9) Lymphocytes % 1 % (24-48) Platelet Estimate Adequate (ADEQUATE) Sodium Level 142 mmol/L (136-145) 141 mmol/L (136-145) Potassium Level 4.6 mmol/L (3.5-5.1) 4.8 mmol/L (3.5-5.1) Chloride Level 103 mmol/L (98-107) 102 mmol/L (98-107) Carbon Dioxide Level 33 mmol/L (21-32) 33 mmol/L (21-32) Anion Gap 6 (6-14) 6 (6-14) Blood Urea Nitrogen 17 mg/dL (8-26) 18 mg/dL (8-26) Creatinine 0.9 mg/dL (0.7-1.3) 0.8 mg/dL (0.7-1.3) Estimated GFR (Cockcroft-Gault) 86.7 99.3 BUN/Creatinine Ratio 19 (6-20) 23 (6-20) Glucose Level 134 mg/dL (70-99) 109 mg/dL (70-99) Calcium Level 8.8 mg/dL (8.5-10.1) 8.9 mg/dL (8.5-10.1) Magnesium Level 2.0 mg/dL (1.8-2.4) Total Bilirubin 0.3 mg/dL (0.2-1.0) 0.3 mg/dL (0.2-1.0) Aspartate Amino Transf (AST/SGOT) 13 U/L (15-37) 15 U/L (15-37) Alanine Aminotransferase (ALT/SGPT) 24 U/L (16-63) 25 U/L (16-63) Alkaline Phosphatase 80 U/L (46-116) 76 U/L (46-116) Total Protein 6.2 g/dL (6.4-8.2) 6.1 g/dL (6.4-8.2) Albumin 3.0 g/dL (3.4-5.0) 3.0 g/dL (3.4-5.0) Albumin/Globulin Ratio 0.9 (1.0-1.7) 1.0 (1.0-1.7) Laboratory Tests Test 09/13/17 17:10 09/13/17 22:15 09/13/17 22:30 09/14/17 04:30 Urine Collection Type Unknown Urine Color Red Urine Clarity Cloudy Urine pH 8.5 Urine Specific [place] 1.020 Urine Protein >=300 mg/dL (NEG-TRACE) Urine Glucose (UA) 100 mg/dL (NEG) Urine Ketones (Stick) Negative mg/dL (NEG) Urine Blood Large (NEG) Urine Nitrite Negative (NEG) Urine Bilirubin Negative (NEG) Urine Urobilinogen Dipstick 1.0 mg/dL (0.2 mg/dL) Urine Leukocyte Esterase Moderate (NEG) Urine RBC >40 /HPF (0-2) Urine WBC Occ /HPF (0-4) Urine Squamous Epithelial Cells None /LPF Urine Bacteria 0 /HPF (0-FEW) White Blood Count 11.1 x10^3/uL (4.0-11.0) 10.8 x10^3/uL (4.0-11.0) Red Blood Count 4.21 x10^6/uL (4.30-5.70) 4.22 x10^6/uL (4.30-5.70) Hemoglobin 13.6 g/dL (13.0-17.5) 13.5 g/dL (13.0-17.5) Hematocrit 41.0 % (39.0-53.0) 40.9 % (39.0-53.0) Mean Corpuscular Volume 97 fL (79-100) 97 fL (79-100) Mean Corpuscular Hemoglobin 32 pg (25-35) 32 pg (25-35) Mean Corpuscular Hemoglobin Concent 33 g/dL (31-37) 33 g/dL (31-37) Red Cell Distribution Width 13.2 % (11.5-14.5) 13.3 % (11.5-14.5) Platelet Count 240 x10^3/uL (140-400) 243 x10^3/uL (140-400) Neutrophils (%) (Auto) 96 % (31-73) 95 % (31-73) Lymphocytes (%) (Auto) 3 % (24-48) 4 % (24-48) Monocytes (%) (Auto) 1 % (0-9) 1 % (0-9) Eosinophils (%) (Auto) 0 % (0-3) 0 % (0-3) Basophils (%) (Auto) 0 % (0-3) 0 % (0-3) Neutrophils # (Auto) 10.6 x10^3uL (1.8-7.7) 10.3 x10^3uL (1.8-7.7) Lymphocytes # (Auto) 0.4 x10^3/uL (1.0-4.8) 0.4 x10^3/uL (1.0-4.8) Monocytes # (Auto) 0.1 x10^3/uL (0.0-1.1) 0.1 x10^3/uL (0.0-1.1) Eosinophils # (Auto) 0.0 x10^3/uL (0.0-0.7) 0.0 x10^3/uL (0.0-0.7) Basophils # (Auto) 0.0 x10^3/uL (0.0-0.2) 0.0 x10^3/uL (0.0-0.2) Segmented Neutrophils % 97 % (35-66) Band Neutrophils % 2 % (0-9) Lymphocytes % 1 % (24-48) Platelet Estimate Adequate (ADEQUATE) Sodium Level 142 mmol/L (136-145) 141 mmol/L (136-145) Potassium Level 4.6 mmol/L (3.5-5.1) 4.8 mmol/L (3.5-5.1) Chloride Level 103 mmol/L (98-107) 102 mmol/L (98-107) Carbon Dioxide Level 33 mmol/L (21-32) 33 mmol/L (21-32) Anion Gap 6 (6-14) 6 (6-14) Blood Urea Nitrogen 17 mg/dL (8-26) 18 mg/dL (8-26) Creatinine 0.9 mg/dL (0.7-1.3) 0.8 mg/dL (0.7-1.3) Estimated GFR (Cockcroft-Gault) 86.7 99.3 BUN/Creatinine Ratio 19 (6-20) 23 (6-20) Glucose Level 134 mg/dL (70-99) 109 mg/dL (70-99) Calcium Level 8.8 mg/dL (8.5-10.1) 8.9 mg/dL (8.5-10.1) Magnesium Level 2.0 mg/dL (1.8-2.4) Total Bilirubin 0.3 mg/dL (0.2-1.0) 0.3 mg/dL (0.2-1.0) Aspartate Amino Transf (AST/SGOT) 13 U/L (15-37) 15 U/L (15-37) Alanine Aminotransferase (ALT/SGPT) 24 U/L (16-63) 25 U/L (16-63) Alkaline Phosphatase 80 U/L (46-116) 76 U/L (46-116) Total Protein 6.2 g/dL (6.4-8.2) 6.1 g/dL (6.4-8.2) Albumin 3.0 g/dL (3.4-5.0) 3.0 g/dL (3.4-5.0) Albumin/Globulin Ratio 0.9 (1.0-1.7) 1.0 (1.0-1.7) Medications Active Scripts Medications Dose Route/Sig Max Daily Dose Days Date Category Flomax (Tamsulosin Hcl) 0.4 Mg Cap.er.24h 1 Cap PO DAILY 07/26/17 Rx Cipro (Ciprofloxacin Hcl) 500 Mg Tablet 1 Tab PO BID 07/26/17 Rx Prednisone 10 Mg Tablet 50 Mg PO DAILY 5 03/24/17 Rx Azithromycin Tablet (Azithromycin) 250 Mg Tablet 500 Mg PO DAILY 3 03/24/17 Rx Atorvastatin Calcium 20 Mg Tablet 20 Mg PO HS 03/21/17 Reported [ProAir HFA] 90 Mcg IH QID 03/21/17 Reported [verapamil 80mg TID] 80 Mg PO TID 03/21/17 Reported Protonix (Pantoprazole Sodium) 40 Mg Tablet.dr 1 Tab PO DAILY 03/21/17 Reported Zoloft (Sertraline Hcl) 100 Mg Tablet 1.5 Tab PO DAILY 03/21/17 Reported Duoneb 0.5-3(2.5) Mg/3 Ml (Albuterol/Ipratropium) 3 Ml Ampul.neb 3 Ml IH QID 09/16/15 Rx Topiramate 50 Mg Tablet 1 Tab PO BID 09/15/15 Reported Symbicort 160-4.5 Mcg Inhaler (Budesonide/Formoterol Fumarate) 10.2 Gm Hfa.aer.ad 2 Puff IH BID 09/15/15 Reported Singulair Tablet (Montelukast Sodium) 10 Mg Tablet 10 Mg PO HS 09/15/15 Reported Buspirone Hcl 30 Mg Tablet 1 Tab PO BID 09/15/15 Reported Comments cxr reviewed, copd changes, no infilt Impression . IMPRESSION: 1. Gaezd-cl-[id number] respiratory failure, multifactorial in etiology including acute exacerbation of chronic obstructive pulmonary disease, acute bronchitis versus pneumonia, rule out right-sided heart failure versus others. 2. Acute exacerbation of chronic obstructive pulmonary disease. 3. Acute bronchitis versus pneumonia. 4. Tobacco habituation. 5. History of cerebrovascular accident. Plan . PLAN AND RECOMMENDATIONS: 1. Titrate FiO2 to keep O2 saturation 92%. 2. Bronchodilator. 3. Inhaled corticosteroid. 4. change Solu-Medrol to 60 bid. 5. cont azithromycin and Rocephin. 6. increase protonix to bid. 7. Lovenox for DVT prophylaxis. 8. chest x-ray reviewed. 9. Monitor respiratory status very closely. 10. The findings and recommendations were discussed with the patient and RN. I have answered all of the patient's questions. He understood and agreed to proceed with the plan. VIKAS PRUETT MD Sep 14, 2017 13:09
[2017-09-14 15:06] VITALS: BP 124/65
[2017-09-14] MEDS: PANTOPRAZOLE 40 MG TABLET.DR. PO SCH (15:54)
[2017-09-14] MEDS: methylPREDNISolone SOD SUCC PF 125 MG/2 ML VIAL. IV SCH (15:55)
[2017-09-14] MEDS: AZITHROMYCIN 500 MG in IV NORMAL SALINE 250ML 250 ML IV SCH (17:48)
[2017-09-14] MEDS: ENOXAPARIN 40 MG/0.4 ML SYRINGE. SQ SCH (17:52)
[2017-09-14 19:00] VITALS: BP_SYST 124; BP_SYST 128; BP_DIAS 65; BP_DIAS 70
[2017-09-14] MEDS: ATORVASTATIN CALCIUM 20 MG TABLET PO SCH (20:15)
[2017-09-14] MEDS: MONTELUKAST SODIUM 10 MG TABLET. PO SCH (20:15)
[2017-09-14] MEDS: ACETAMINOPHEN 325 MG TABLET. PO PRN (20:16)
[2017-09-14 23:00] VITALS: BP 128/72
[2017-09-15 03:00] VITALS: BP_SYST 127; BP_SYST 128; BP_DIAS 72; BP_DIAS 78
[2017-09-15 07:00] VITALS: BP 116/68
[2017-09-15] MEDS: BUDESONIDE 0.5 MG/2 ML NEBU. NEB SCH ×2 (07:17→19:39)
[2017-09-15] MEDS: IPRATRPIUM/ALBUTEROL 0.5/2.5MG 3 ML NEBU. IH SCH ×4 (07:17→19:39)
[2017-09-15] MEDS: levETIRAcetam 500 MG TABLET PO SCH ×2 (08:06→21:36)
[2017-09-15] MEDS: SERTRALINE 50 MG TABLET. PO SCH (08:06)
[2017-09-15] MEDS: busPIRone 10 MG TABLET. PO SCH ×2 (08:07→21:36)
[2017-09-15] MEDS: TAMSULOSIN 0.4 MG CAP.ER.24H. PO SCH (08:07)
[2017-09-15] MEDS: VERAPAMIL 40 MG TABLET. PO SCH ×3 (08:07→21:37)
[2017-09-15] MEDS: TOPIRAMATE 100 MG TABLET. PO SCH ×2 (08:07→21:36)
[2017-09-15] MEDS: PANTOPRAZOLE 40 MG TABLET.DR. PO SCH ×2 (08:07→16:42)
[2017-09-15] MEDS: methylPREDNISolone SOD SUCC PF 125 MG/2 ML VIAL. IV SCH ×2 (08:08→14:58)
[2017-09-15 11:00] VITALS: BP 107/67
--- NOTE | 2017-09-15 11:35 | PDOC ---
IM PROGRESS NOTES- Subjective Subjective sleeping Objective Vitals Vital Signs Date Time Temp Pulse Resp B/P (MAP) Pulse Ox O2 Delivery O2 Flow Rate FiO2 09/15/17 11:00 97.7 71 18 107/67 (80) 96 Nasal Cannula 3.0 97.7 Physical Exam Physical Exam GENERAL: The patient is a middle-aged male who appears to be much older than his stated age. He is both acutely and chronically ill, in mild to moderate respiratory distress. The patient is sleeping SKIN: Warm and dry. Skin turgor decreased. No cyanosis. NECK: Supple. JVP normal. No thyromegaly. Trachea midline. LUNGS: Bilateral wheezing. CARDIOVASCULAR: S1, S2 regular. ABDOMEN: Soft, nontender, no guarding, no rigidity. Bowel sounds present. EXTREMITIES: No edema. CENTRAL NERVOUS SYSTEM: Generalized weakness. Labs Laboratory Tests Test 09/13/17 17:10 09/13/17 22:15 09/13/17 22:30 09/14/17 04:30 Urine Collection Type Unknown Urine Color Red Urine Clarity Cloudy Urine pH 8.5 Urine Specific [place] 1.020 Urine Protein >=300 mg/dL (NEG-TRACE) Urine Glucose (UA) 100 mg/dL (NEG) Urine Ketones (Stick) Negative mg/dL (NEG) Urine Blood Large (NEG) Urine Nitrite Negative (NEG) Urine Bilirubin Negative (NEG) Urine Urobilinogen Dipstick 1.0 mg/dL (0.2 mg/dL) Urine Leukocyte Esterase Moderate (NEG) Urine RBC >40 /HPF (0-2) Urine WBC Occ /HPF (0-4) Urine Squamous Epithelial Cells None /LPF Urine Bacteria 0 /HPF (0-FEW) White Blood Count 11.1 x10^3/uL (4.0-11.0) 10.8 x10^3/uL (4.0-11.0) Red Blood Count 4.21 x10^6/uL (4.30-5.70) 4.22 x10^6/uL (4.30-5.70) Hemoglobin 13.6 g/dL (13.0-17.5) 13.5 g/dL (13.0-17.5) Hematocrit 41.0 % (39.0-53.0) 40.9 % (39.0-53.0) Mean Corpuscular Volume 97 fL (79-100) 97 fL (79-100) Mean Corpuscular Hemoglobin 32 pg (25-35) 32 pg (25-35) Mean Corpuscular Hemoglobin Concent 33 g/dL (31-37) 33 g/dL (31-37) Red Cell Distribution Width 13.2 % (11.5-14.5) 13.3 % (11.5-14.5) Platelet Count 240 x10^3/uL (140-400) 243 x10^3/uL (140-400) Neutrophils (%) (Auto) 96 % (31-73) 95 % (31-73) Lymphocytes (%) (Auto) 3 % (24-48) 4 % (24-48) Monocytes (%) (Auto) 1 % (0-9) 1 % (0-9) Eosinophils (%) (Auto) 0 % (0-3) 0 % (0-3) Basophils (%) (Auto) 0 % (0-3) 0 % (0-3) Neutrophils # (Auto) 10.6 x10^3uL (1.8-7.7) 10.3 x10^3uL (1.8-7.7) Lymphocytes # (Auto) 0.4 x10^3/uL (1.0-4.8) 0.4 x10^3/uL (1.0-4.8) Monocytes # (Auto) 0.1 x10^3/uL (0.0-1.1) 0.1 x10^3/uL (0.0-1.1) Eosinophils # (Auto) 0.0 x10^3/uL (0.0-0.7) 0.0 x10^3/uL (0.0-0.7) Basophils # (Auto) 0.0 x10^3/uL (0.0-0.2) 0.0 x10^3/uL (0.0-0.2) Segmented Neutrophils % 97 % (35-66) Band Neutrophils % 2 % (0-9) Lymphocytes % 1 % (24-48) Platelet Estimate Adequate (ADEQUATE) Sodium Level 142 mmol/L (136-145) 141 mmol/L (136-145) Potassium Level 4.6 mmol/L (3.5-5.1) 4.8 mmol/L (3.5-5.1) Chloride Level 103 mmol/L (98-107) 102 mmol/L (98-107) Carbon Dioxide Level 33 mmol/L (21-32) 33 mmol/L (21-32) Anion Gap 6 (6-14) 6 (6-14) Blood Urea Nitrogen 17 mg/dL (8-26) 18 mg/dL (8-26) Creatinine 0.9 mg/dL (0.7-1.3) 0.8 mg/dL (0.7-1.3) Estimated GFR (Cockcroft-Gault) 86.7 99.3 BUN/Creatinine Ratio 19 (6-20) 23 (6-20) Glucose Level 134 mg/dL (70-99) 109 mg/dL (70-99) Calcium Level 8.8 mg/dL (8.5-10.1) 8.9 mg/dL (8.5-10.1) Magnesium Level 2.0 mg/dL (1.8-2.4) Total Bilirubin 0.3 mg/dL (0.2-1.0) 0.3 mg/dL (0.2-1.0) Aspartate Amino Transf (AST/SGOT) 13 U/L (15-37) 15 U/L (15-37) Alanine Aminotransferase (ALT/SGPT) 24 U/L (16-63) 25 U/L (16-63) Alkaline Phosphatase 80 U/L (46-116) 76 U/L (46-116) Total Protein 6.2 g/dL (6.4-8.2) 6.1 g/dL (6.4-8.2) Albumin 3.0 g/dL (3.4-5.0) 3.0 g/dL (3.4-5.0) Albumin/Globulin Ratio 0.9 (1.0-1.7) 1.0 (1.0-1.7) Meds Current Medications Enoxaparin Sodium (Lovenox 40mg Syringe) 40 mg Q24H SQ Last administered on 17:52; Start 09/14/17 at 18:00 Methylprednisolone Sodium Succinate (SOLU-Medrol 125MG VIAL) 60 mg [id number] IV Last administered on 09/15/17 08:08; Start 09/14/17 at 14:00 Pantoprazole Sodium (Protonix) 40 mg BIDAC PO Last administered on 09/15/17t 08:07; Start 09/14/17 at 16:30 Assessment Assessment 1. Acute on chronic respiratory failure. 2. Acute exacerbation of chronic obstructive pulmonary disease. 3. Hypertension. 4. Acute bronchitis. 5. Noncompliance. 6. Bipolar disorder. 7. History of cerebrovascular accident. 8. Anxiety. 9. Depression. 10. Hyperlipidemia. PLAN: I have started the patient on IV Rocephin and Zithromax. Continue IV steroids. The patient also has recent urinary retention that is new. Urologist has not been able to take the Pierre catheter out as every time they do that, he starts having urinary retention. He is supposed to see the urologist on of this month for further testing. I will consult Dr. Lopez for pulmonary evaluation and management. Long-term as well as short-term prognosis of this patient is very poor due to his multiple medical problems and noncompliance. Check labs in AM,Blood sugar. Plan Plan For more details regarding further plans, please refer to the orders. JEANNETTE NOEL MD Sep 15, 2017 11:35
[2017-09-15 15:00] VITALS: BP 120/65
--- NOTE | 2017-09-15 15:31 | PDOC ---
PULMONARY PROGRESS NOTES Subjective PT SLIGHTLY BETTER LESS COUGH AND SOA Vitals Vital Signs Date Time Temp Pulse Resp B/P (MAP) Pulse Ox O2 Delivery O2 Flow Rate FiO2 09/15/17 15:27 Nasal Cannula 2.0 09/15/17 14:58 71 107/67 09/15/17 11:00 97.7 18 96 97.7 ROS: No Nausea, No Chest Pain General: Alert, Oriented X4, No acute distress HEENT: Other (nc at perrl ) Lungs: Wheezing, Other (deminished) Cardiovascular: S1, S2 Abdomen: Soft, Non-tender Neuro Exam: Alert, Oriented Extremities: No Edema Skin: Warm Labs Laboratory Tests Test 09/13/17 17:10 09/13/17 22:15 09/13/17 22:30 09/14/17 04:30 Urine Collection Type Unknown Urine Color Red Urine Clarity Cloudy Urine pH 8.5 Urine Specific [place] 1.020 Urine Protein >=300 mg/dL (NEG-TRACE) Urine Glucose (UA) 100 mg/dL (NEG) Urine Ketones (Stick) Negative mg/dL (NEG) Urine Blood Large (NEG) Urine Nitrite Negative (NEG) Urine Bilirubin Negative (NEG) Urine Urobilinogen Dipstick 1.0 mg/dL (0.2 mg/dL) Urine Leukocyte Esterase Moderate (NEG) Urine RBC >40 /HPF (0-2) Urine WBC Occ /HPF (0-4) Urine Squamous Epithelial Cells None /LPF Urine Bacteria 0 /HPF (0-FEW) White Blood Count 11.1 x10^3/uL (4.0-11.0) 10.8 x10^3/uL (4.0-11.0) Red Blood Count 4.21 x10^6/uL (4.30-5.70) 4.22 x10^6/uL (4.30-5.70) Hemoglobin 13.6 g/dL (13.0-17.5) 13.5 g/dL (13.0-17.5) Hematocrit 41.0 % (39.0-53.0) 40.9 % (39.0-53.0) Mean Corpuscular Volume 97 fL (79-100) 97 fL (79-100) Mean Corpuscular Hemoglobin 32 pg (25-35) 32 pg (25-35) Mean Corpuscular Hemoglobin Concent 33 g/dL (31-37) 33 g/dL (31-37) Red Cell Distribution Width 13.2 % (11.5-14.5) 13.3 % (11.5-14.5) Platelet Count 240 x10^3/uL (140-400) 243 x10^3/uL (140-400) Neutrophils (%) (Auto) 96 % (31-73) 95 % (31-73) Lymphocytes (%) (Auto) 3 % (24-48) 4 % (24-48) Monocytes (%) (Auto) 1 % (0-9) 1 % (0-9) Eosinophils (%) (Auto) 0 % (0-3) 0 % (0-3) Basophils (%) (Auto) 0 % (0-3) 0 % (0-3) Neutrophils # (Auto) 10.6 x10^3uL (1.8-7.7) 10.3 x10^3uL (1.8-7.7) Lymphocytes # (Auto) 0.4 x10^3/uL (1.0-4.8) 0.4 x10^3/uL (1.0-4.8) Monocytes # (Auto) 0.1 x10^3/uL (0.0-1.1) 0.1 x10^3/uL (0.0-1.1) Eosinophils # (Auto) 0.0 x10^3/uL (0.0-0.7) 0.0 x10^3/uL (0.0-0.7) Basophils # (Auto) 0.0 x10^3/uL (0.0-0.2) 0.0 x10^3/uL (0.0-0.2) Segmented Neutrophils % 97 % (35-66) Band Neutrophils % 2 % (0-9) Lymphocytes % 1 % (24-48) Platelet Estimate Adequate (ADEQUATE) Sodium Level 142 mmol/L (136-145) 141 mmol/L (136-145) Potassium Level 4.6 mmol/L (3.5-5.1) 4.8 mmol/L (3.5-5.1) Chloride Level 103 mmol/L (98-107) 102 mmol/L (98-107) Carbon Dioxide Level 33 mmol/L (21-32) 33 mmol/L (21-32) Anion Gap 6 (6-14) 6 (6-14) Blood Urea Nitrogen 17 mg/dL (8-26) 18 mg/dL (8-26) Creatinine 0.9 mg/dL (0.7-1.3) 0.8 mg/dL (0.7-1.3) Estimated GFR (Cockcroft-Gault) 86.7 99.3 BUN/Creatinine Ratio 19 (6-20) 23 (6-20) Glucose Level 134 mg/dL (70-99) 109 mg/dL (70-99) Calcium Level 8.8 mg/dL (8.5-10.1) 8.9 mg/dL (8.5-10.1) Magnesium Level 2.0 mg/dL (1.8-2.4) Total Bilirubin 0.3 mg/dL (0.2-1.0) 0.3 mg/dL (0.2-1.0) Aspartate Amino Transf (AST/SGOT) 13 U/L (15-37) 15 U/L (15-37) Alanine Aminotransferase (ALT/SGPT) 24 U/L (16-63) 25 U/L (16-63) Alkaline Phosphatase 80 U/L (46-116) 76 U/L (46-116) Total Protein 6.2 g/dL (6.4-8.2) 6.1 g/dL (6.4-8.2) Albumin 3.0 g/dL (3.4-5.0) 3.0 g/dL (3.4-5.0) Albumin/Globulin Ratio 0.9 (1.0-1.7) 1.0 (1.0-1.7) Medications Active Scripts Medications Dose Route/Sig Max Daily Dose Days Date Category Flomax (Tamsulosin Hcl) 0.4 Mg Cap.er.24h 1 Cap PO DAILY 07/26/17 Rx Cipro (Ciprofloxacin Hcl) 500 Mg Tablet 1 Tab PO BID 07/26/17 Rx Prednisone 10 Mg Tablet 50 Mg PO DAILY 5 03/24/17 Rx Azithromycin Tablet (Azithromycin) 250 Mg Tablet 500 Mg PO DAILY 3 03/24/17 Rx Atorvastatin Calcium 20 Mg Tablet 20 Mg PO HS 03/21/17 Reported [ProAir HFA] 90 Mcg IH QID 03/21/17 Reported [verapamil 80mg TID] 80 Mg PO TID 03/21/17 Reported Protonix (Pantoprazole Sodium) 40 Mg Tablet.dr 1 Tab PO DAILY 03/21/17 Reported Zoloft (Sertraline Hcl) 100 Mg Tablet 1.5 Tab PO DAILY 03/21/17 Reported Duoneb 0.5-3(2.5) Mg/3 Ml (Albuterol/Ipratropium) 3 Ml Ampul.neb 3 Ml IH QID 09/16/15 Rx Topiramate 50 Mg Tablet 1 Tab PO BID 09/15/15 Reported Symbicort 160-4.5 Mcg Inhaler (Budesonide/Formoterol Fumarate) 10.2 Gm Hfa.aer.ad 2 Puff IH BID 09/15/15 Reported Singulair Tablet (Montelukast Sodium) 10 Mg Tablet 10 Mg PO HS 09/15/15 Reported Buspirone Hcl 30 Mg Tablet 1 Tab PO BID 09/15/15 Reported Comments cxr reviewed, copd changes, no infilt Impression . 1. [id number] respiratory failure, multifactorial in etiology including acute exacerbation of chronic obstructive pulmonary disease, acute bronchitis 2. Acute exacerbation of chronic obstructive pulmonary disease. 3. Acute bronchitis 4. Tobacco habituation. 5. History of cerebrovascular accident. Plan . cxr reviewed bibasilar atelectasis 1. Titrate FiO2 to keep O2 saturation 92%. 2. Bronchodilator. 3. Inhaled corticosteroid. 4. change Solu-Medrol to 60 bid. 5. cont azithromycin and Rocephin. 6. increase protonix to bid. 7. Lovenox for DVT prophylaxis. 8. chest x-ray reviewed. 9. 6 ,in walk prior to d/c DEVON TEJADA MD Sep 15, 2017 15:31
[2017-09-15] MEDS: AZITHROMYCIN 500 MG in IV NORMAL SALINE 250ML 250 ML IV SCH (17:39)
[2017-09-15] MEDS: ENOXAPARIN 40 MG/0.4 ML SYRINGE. SQ SCH (17:40)
[2017-09-15 19:00] VITALS: BP 121/69
[2017-09-15] MEDS: ATORVASTATIN CALCIUM 20 MG TABLET PO SCH (21:36)
[2017-09-15] MEDS: MONTELUKAST SODIUM 10 MG TABLET. PO SCH (21:36)
[2017-09-15] MEDS: ACETAMINOPHEN 325 MG TABLET. PO PRN (21:36)
[2017-09-15 23:00] VITALS: BP 126/60
[2017-09-16 03:00] VITALS: BP 132/66
[2017-09-16 05:45] LABS: CREATININE 1.1 mg/dL (0.7-1.3); GFR 68.8; POTASSIUM 4.6 mmol/L (3.5-5.1)
[2017-09-16 07:00] VITALS: BP 114/66
[2017-09-16] MEDS: IPRATRPIUM/ALBUTEROL 0.5/2.5MG 3 ML NEBU. IH SCH ×4 (07:00→20:39)
[2017-09-16] MEDS: BUDESONIDE 0.5 MG/2 ML NEBU. NEB SCH ×2 (07:01→20:39)
[2017-09-16] MEDS: busPIRone 10 MG TABLET. PO SCH ×2 (08:26→21:58)
[2017-09-16] MEDS: SERTRALINE 50 MG TABLET. PO SCH (08:26)
[2017-09-16] MEDS: TOPIRAMATE 100 MG TABLET. PO SCH ×2 (08:27→21:58)
[2017-09-16] MEDS: VERAPAMIL 40 MG TABLET. PO SCH ×3 (08:27→22:42)
[2017-09-16] MEDS: TAMSULOSIN 0.4 MG CAP.ER.24H. PO SCH (08:27)
[2017-09-16] MEDS: PANTOPRAZOLE 40 MG TABLET.DR. PO SCH ×2 (08:27→16:01)
[2017-09-16] MEDS: levETIRAcetam 500 MG TABLET PO SCH ×2 (08:27→21:59)
--- NOTE | 2017-09-16 08:32 | PDOC ---
IM PROGRESS NOTES- Subjective Subjective Dyspnea is better. Objective Vitals Vital Signs Date Time Temp Pulse Resp B/P (MAP) Pulse Ox O2 Delivery O2 Flow Rate FiO2 09/16/17 07:01 95 Nasal Cannula 3.0 09/16/17 07:00 97.9 61 20 114/66 (82) 97.9 Physical Exam Physical Exam GENERAL: The patient is a middle-aged male who appears to be much older than his stated age. He is chronically ill, in mild respiratory distress. The patient is alert SKIN: Warm and dry. Skin turgor decreased. No cyanosis. NECK: Supple. JVP normal. No thyromegaly. Trachea midline. LUNGS: Bilateral wheezing. CARDIOVASCULAR: S1, S2 regular. ABDOMEN: Soft, nontender, no guarding, no rigidity. Bowel sounds present. EXTREMITIES: No edema. CENTRAL NERVOUS SYSTEM: Generalized weakness. Labs Laboratory Tests Test 09/16/17 03:15 Sodium Level 141 mmol/L (136-145) Potassium Level 4.6 mmol/L (3.5-5.1) Chloride Level 105 mmol/L (98-107) Carbon Dioxide Level 28 mmol/L (21-32) Anion Gap 8 (6-14) Blood Urea Nitrogen 33 mg/dL (8-26) Creatinine 1.1 mg/dL (0.7-1.3) Estimated GFR (Cockcroft-Gault) 68.8 Glucose Level 99 mg/dL (70-99) Calcium Level 9.0 mg/dL (8.5-10.1) Laboratory Tests Test 09/16/17 03:15 Sodium Level 141 mmol/L (136-145) Potassium Level 4.6 mmol/L (3.5-5.1) Chloride Level 105 mmol/L (98-107) Carbon Dioxide Level 28 mmol/L (21-32) Anion Gap 8 (6-14) Blood Urea Nitrogen 33 mg/dL (8-26) Creatinine 1.1 mg/dL (0.7-1.3) Estimated GFR (Cockcroft-Gault) 68.8 Glucose Level 99 mg/dL (70-99) Calcium Level 9.0 mg/dL (8.5-10.1) Assessment Assessment 1. Acute on chronic respiratory failure. 2. Acute exacerbation of chronic obstructive pulmonary disease. 3. Hypertension. 4. Acute bronchitis. 5. Noncompliance. 6. Bipolar disorder. 7. History of cerebrovascular accident. 8. Anxiety. 9. Depression. 10. Hyperlipidemia. PLAN: I have started the patient on IV Rocephin and Zithromax. Continue IV steroids. The patient also has recent urinary retention that is new. Urologist has not been able to take the Pierre catheter out as every time they do that, he starts having urinary retention. He is supposed to see the urologist on of this month for further testing. I will consult Dr. Lopez for pulmonary evaluation and management. Long-term as well as short-term prognosis of this patient is very poor due to his multiple medical problems and noncompliance. Decrease solumedrol. If stable,discharge tomorrow. Plan Plan For more details regarding further plans, please refer to the orders. JEANNETTE NOEL MD Sep 16, 2017 08:32
[2017-09-16] MEDS: methylPREDNISolone SOD SUCC PF 125 MG/2 ML VIAL. IV SCH ×2 (08:33→15:55)
[2017-09-16 11:00] VITALS: BP 126/67
[2017-09-16 15:00] VITALS: BP 132/61
--- NOTE | 2017-09-16 16:17 | PDOC ---
PULMONARY PROGRESS NOTES Subjective PT SLIGHTLY BETTER LESS COUGH AND SOA Vitals Vital Signs Date Time Temp Pulse Resp B/P (MAP) Pulse Ox O2 Delivery O2 Flow Rate FiO2 09/16/17 15:54 70 126/67 09/16/17 15:03 Nasal Cannula 3.0 09/16/17 11:23 94 09/16/17 11:00 97.6 22 97.6 ROS: No Nausea, No Chest Pain General: Alert, Oriented X4, No acute distress HEENT: Other (nc at perrl ) Lungs: Wheezing, Other (deminished) Cardiovascular: S1, S2 Abdomen: Soft, Non-tender Neuro Exam: Alert, Oriented Extremities: No Edema Skin: Warm Labs Laboratory Tests Test 09/16/17 03:15 Sodium Level 141 mmol/L (136-145) Potassium Level 4.6 mmol/L (3.5-5.1) Chloride Level 105 mmol/L (98-107) Carbon Dioxide Level 28 mmol/L (21-32) Anion Gap 8 (6-14) Blood Urea Nitrogen 33 mg/dL (8-26) Creatinine 1.1 mg/dL (0.7-1.3) Estimated GFR (Cockcroft-Gault) 68.8 Glucose Level 99 mg/dL (70-99) Calcium Level 9.0 mg/dL (8.5-10.1) Laboratory Tests Test 09/16/17 03:15 Sodium Level 141 mmol/L (136-145) Potassium Level 4.6 mmol/L (3.5-5.1) Chloride Level 105 mmol/L (98-107) Carbon Dioxide Level 28 mmol/L (21-32) Anion Gap 8 (6-14) Blood Urea Nitrogen 33 mg/dL (8-26) Creatinine 1.1 mg/dL (0.7-1.3) Estimated GFR (Cockcroft-Gault) 68.8 Glucose Level 99 mg/dL (70-99) Calcium Level 9.0 mg/dL (8.5-10.1) Medications Active Scripts Medications Dose Route/Sig Max Daily Dose Days Date Category Flomax (Tamsulosin Hcl) 0.4 Mg Cap.er.24h 1 Cap PO DAILY 07/26/17 Rx Cipro (Ciprofloxacin Hcl) 500 Mg Tablet 1 Tab PO BID 07/26/17 Rx Prednisone 10 Mg Tablet 50 Mg PO DAILY 5 03/24/17 Rx Azithromycin Tablet (Azithromycin) 250 Mg Tablet 500 Mg PO DAILY 3 03/24/17 Rx Atorvastatin Calcium 20 Mg Tablet 20 Mg PO HS 03/21/17 Reported [ProAir HFA] 90 Mcg IH QID 03/21/17 Reported [verapamil 80mg TID] 80 Mg PO TID 03/21/17 Reported Protonix (Pantoprazole Sodium) 40 Mg Tablet.dr 1 Tab PO DAILY 03/21/17 Reported Zoloft (Sertraline Hcl) 100 Mg Tablet 1.5 Tab PO DAILY 03/21/17 Reported Duoneb 0.5-3(2.5) Mg/3 Ml (Albuterol/Ipratropium) 3 Ml Ampul.neb 3 Ml IH QID 09/16/15 Rx Topiramate 50 Mg Tablet 1 Tab PO BID 09/15/15 Reported Symbicort 160-4.5 Mcg Inhaler (Budesonide/Formoterol Fumarate) 10.2 Gm Hfa.aer.ad 2 Puff IH BID 09/15/15 Reported Singulair Tablet (Montelukast Sodium) 10 Mg Tablet 10 Mg PO HS 09/15/15 Reported Buspirone Hcl 30 Mg Tablet 1 Tab PO BID 09/15/15 Reported Comments cxr reviewed, copd changes, no infilt Impression . 1. [id number] respiratory failure, multifactorial in etiology including acute exacerbation of chronic obstructive pulmonary disease, acute bronchitis 2. Acute exacerbation of chronic obstructive pulmonary disease. 3. Acute bronchitis 4. Tobacco habituation. 5. History of cerebrovascular accident. Plan . cxr reviewed bibasilar atelectasis PT Improving home in am ok 6 min 1. Titrate FiO2 to keep O2 saturation 92%. 2. Bronchodilator. 3. Inhaled corticosteroid. 4. change Solu-Medrol to 60 bid. 5. cont azithromycin and Rocephin. 6. increase protonix to bid. 7. Lovenox for DVT prophylaxis. 8. chest x-ray reviewed. 9. 6 ,in walk prior to d/c DEVON TEJADA MD Sep 16, 2017 16:17
[2017-09-16 19:40] VITALS: BP 122/62
[2017-09-16] MEDS: AZITHROMYCIN 500 MG in IV NORMAL SALINE 250ML 250 ML IV SCH (21:57)
[2017-09-16] MEDS: ENOXAPARIN 40 MG/0.4 ML SYRINGE. SQ SCH (21:58)
[2017-09-16] MEDS: ATORVASTATIN CALCIUM 20 MG TABLET PO SCH (21:58)
[2017-09-16] MEDS: MONTELUKAST SODIUM 10 MG TABLET. PO SCH (21:58)
[2017-09-16 22:41] VITALS: BP 131/69
[2017-09-17] MEDS: ALBUTEROL SULFATE 2.5 MG/3 ML NEBU. NEB PRN (00:27)
[2017-09-17] MEDS ORDERED: ONDANSETRON PF 4 MG/2 ML VIAL. IV PRN (02:45)
[2017-09-17] MEDS: ACETAMINOPHEN 325 MG TABLET. PO PRN ×2 (03:35→09:05)
[2017-09-17 03:56] VITALS: BP 197/86
[2017-09-17 07:00] VITALS: BP 144/79
[2017-09-17] MEDS: IPRATRPIUM/ALBUTEROL 0.5/2.5MG 3 ML NEBU. IH SCH ×2 (07:32→12:13)
[2017-09-17] MEDS: BUDESONIDE 0.5 MG/2 ML NEBU. NEB SCH (07:32)
[2017-09-17] MEDS: VERAPAMIL 40 MG TABLET. PO SCH (09:00)
[2017-09-17] MEDS: TAMSULOSIN 0.4 MG CAP.ER.24H. PO SCH (09:04)
[2017-09-17] MEDS: PANTOPRAZOLE 40 MG TABLET.DR. PO SCH (09:04)
[2017-09-17] MEDS: levETIRAcetam 500 MG TABLET PO SCH (09:05)
[2017-09-17] MEDS: TOPIRAMATE 100 MG TABLET. PO SCH (09:05)
[2017-09-17] MEDS: busPIRone 10 MG TABLET. PO SCH (09:05)
[2017-09-17] MEDS: SERTRALINE 50 MG TABLET. PO SCH (09:05)
[2017-09-17] MEDS: methylPREDNISolone SOD SUCC PF 125 MG/2 ML VIAL. IV SCH (09:07)
--- NOTE | 2017-09-17 09:24 | PDOC ---
IM PROGRESS NOTES- Subjective Subjective Dyspnea is worse when he performs any activity.Feeling better. Objective Vitals Vital Signs Date Time Temp Pulse Resp B/P (MAP) Pulse Ox O2 Delivery O2 Flow Rate FiO2 09/17/17 09:00 73 144/79 09/17/17 07:35 92 Room Air 09/17/17 07:00 97.9 18 3.0 97.9 Physical Exam Physical Exam GENERAL: The patient is a middle-aged male who appears to be much older than his stated age. He is chronically ill, in mild respiratory distress. The patient is alert SKIN: Warm and dry. Skin turgor decreased. No cyanosis. NECK: Supple. JVP normal. No thyromegaly. Trachea midline. LUNGS: Bilateral wheezing. CARDIOVASCULAR: S1, S2 regular. ABDOMEN: Soft, nontender, no guarding, no rigidity. Bowel sounds present. EXTREMITIES: No edema. CENTRAL NERVOUS SYSTEM: Generalized weakness. Labs Laboratory Tests Test 09/16/17 03:15 Sodium Level 141 mmol/L (136-145) Potassium Level 4.6 mmol/L (3.5-5.1) Chloride Level 105 mmol/L (98-107) Carbon Dioxide Level 28 mmol/L (21-32) Anion Gap 8 (6-14) Blood Urea Nitrogen 33 mg/dL (8-26) Creatinine 1.1 mg/dL (0.7-1.3) Estimated GFR (Cockcroft-Gault) 68.8 Glucose Level 99 mg/dL (70-99) Calcium Level 9.0 mg/dL (8.5-10.1) Meds Current Medications Ondansetron HCl (Zofran) 8 mg PRN Q8HRS PRN IV NAUSEA/VOMITING Last administered on 09/17/17t 02:56; Start 09/17/17 at 02:45 Assessment Assessment 1. Acute on chronic respiratory failure. 2. Acute exacerbation of chronic obstructive pulmonary disease. 3. Hypertension. 4. Acute bronchitis. 5. Noncompliance. 6. Bipolar disorder. 7. History of cerebrovascular accident. 8. Anxiety. 9. Depression. 10. Hyperlipidemia. PLAN: The patient also has recent urinary retention that is new. Urologist has not been able to take the Pierre catheter out as every time they do that, he starts having urinary retention. He is supposed to see the urologist on of this month for further testing. I will consult Dr. Lopez for pulmonary evaluation and management. Long-term as well as short-term prognosis of this patient is very poor due to his multiple medical problems and noncompliance. Getting 6 minute walk. Discharge today with [facility] on oral Prednisone and oral vantin 200 mg bid for 7 days. see in office in 5 days. Discharge Management - 35 minutes. Plan Plan For more details regarding further plans, please refer to the orders. JEANNETTE NOEL MD Sep 17, 2017 09:24
--- NOTE | 2017-09-17 09:27 | DISCH ---
DISCHARGE CONDITION ON DISCHARGE: Stable HOME HEALTH: Yes PT. HAS FUNCTIONAL LIMITATIONS: Yes FACE TO FACE ENCOUNTER: Yes POST DISCHARGE ORDERS ACTIVITY ORDERS: Activity as tolerated WEIGHT BEARING STATUS: As tolerated DIET AFTER DISCHARGE: Cardiac FOLLOW-UP PHYSICIAN FOLLOW-UP: Dr.Pratip Noel in 5 days. TREATMENT/EQUIPMENT ORDERS ADAPTIVE EQUIPMENT NEEDED: None RESPIRATORY EQUIPMENT NEEDED: Oxygen (2 lit/min at rest and 3 lit/min while walking) JEANNETTE NOEL MD Sep 17, 2017 09:27
[2017-09-17] MEDS ORDERED: PRED-220 PO (09:37)
[2017-09-17] MEDS ORDERED: CEFP200T PO (09:37)
[2017-09-17 10:48] VITALS: BP 138/81
[2017-09-17 14:49] VITALS: BP 135/84
--- NOTE | 2017-09-30 10:22 | PDOC3 ---
IM DISCHARGE SUMMARY Date of Admission Date of Admission Date of Admission: Sep 13, 2017 at 13:30 Date of Discharge Date of Discharge 09/17/17 Primary Diagnosis Primary Diagnosis 1. acute hypoxemic respiratory failure with acute bronchitis and AECOPD underlying 2.. acute bronchitis out patient treatment failure. 3. AECOPD/emphysema 4. HTN 5. hyperlipidemia 6. h/o CVA 7. chronic ALEJANDRO 8. anxiety 9. bipolar disorder 10. bilateral carotid artery stenosis 11. CKD II 12. depression 13. chronic urinary retention with chronic becker Problems: Consults Consults Stephen Lopez MD Procedures Procedures None Labs Labs See EMR Brief hospital course Brief hospital course This 56 year old male who presented with out patient treatment failure for acute bronchitis and AECOPD. AFter admission he was started on Rocephin and IV steroids. Pulmonary was consulted and followed during admission. His AB and AECOPD improrved and he was discharged home on 07/18/17. Tapering steroids and Vantin oral at discharge. He is to continue his chronic oxygen use, nebulizer treatments, and MIDIs. For more details regarding the past history, family history, social history, surgical history and other details, please refer to History and Physical. Please see discharge orders. He is being discharged home with N and is to follow up in the office in 5 days. Medications Medications reviewed and reconciled for discharge. Allergy Allergies Coded Allergies Type Severity Reaction Last Updated Verified codeine Allergy Intermediate RASH 07/12/17 Yes Follow up in 5 days. DISPOSITION: Home health services Comments Discharge Management - 35 minutes. For other details please refer to discharge instructions STEVE MARTIN APRN Sep 30, 2017 10:22
[2017-10-12] MEDS ORDERED: GUAI600T47 PO (08:08)
[2017-10-12] MEDS ORDERED: PRED-220 PO (08:08)
[2017-10-14] MEDS ORDERED: NICO1PAT21 TP (08:15)
[2017-10-14] MEDS ORDERED: LORA0.5T96 PO ×2 (08:15)
[2017-10-14] MEDS ORDERED: LEVO500T59 PO (08:15)
[2017-10-14] MEDS ORDERED: LACT1CAP19 PO (08:15)
== END 2017-09-17 16:38 | disposition home health service (06) | DRG 871 ==
LOC: 6 SOUTH 13:30
PROVIDERS: ADMIT Internal Medicine; ATTEND Internal Medicine
DX: A41.9 Sepsis, unspecified organism (principal); J96.20 Acute and chronic respiratory failure, unspecified whether with hypoxia or hypercapnia; J44.0 Chronic obstructive pulmonary disease with (acute) lower respiratory infection; J44.1 Chronic obstructive pulmonary disease with (acute) exacerbation; J20.9 Acute bronchitis, unspecified; E78.5 Hyperlipidemia, unspecified; F31.9 Bipolar disorder, unspecified; F41.9 Anxiety disorder, unspecified; I12.9 Hypertensive chronic kidney disease with stage 1 through stage 4 chronic kidney disease, or unspecified chronic kidney disease; R33.9 Retention of urine, unspecified; F17.210 Nicotine dependence, cigarettes, uncomplicated; K21.9 Gastro-esophageal reflux disease without esophagitis; N18.2 Chronic kidney disease, stage 2 (mild); Z82.49 Family history of ischemic heart disease and other diseases of the circulatory system; Z86.73 Personal history of transient ischemic attack (TIA), and cerebral infarction without residual deficits; Z91.19 Patient's noncompliance with other medical treatment and regimen; Z87.01 Personal history of pneumonia (recurrent); Z80.9 Family history of malignant neoplasm, unspecified; Z88.6 Allergy status to analgesic agent
CPT/HCPCS: 36415; 71020; 80048; 80053; 81001; 83735; 85007; 85025; 87040; 87086; 93005; 94250; 94620; 94640; 94760; J0456; J0696; J1650; J2405; J2920; J2930; J7050; J7613; J7620; J7626; J7030

== ENCOUNTER 2018-08-17 13:31 | Emergency (ER) | payer OTHER ==
[~2018-08-17] VITALS: Ht 188 cm; Wt 74.8 kg
[~2018-08-17 13:31] MED LIST changes: +CEFP200T PO; -CLON1TAB3 PO; +CLON1TAB4 PO; +GUAI600T47 PO; -IPRA3AMP IH; +IPRA3AMP29 IH; +LACT1CAP19 PO; +LORA0.5T96 PO; +NICO1PAT21 TP
[2018-08-17 14:10] VITALS: BP 137/79
--- NOTE | 2018-08-17 15:22 | PHYS DOC ---
Past Medical History Past Medical History: Bipolar, COPD, CVA, Prostatitis Past Surgical History: Other Additional Past Surgical Histo: Hernia, SUPRAPUBIC CATH Smoking: Cigarettes Alcohol Use: None Drug Use: None Adult General Chief Complaint Chief Complaint: CONSTIPATION HPI HPI Patient is a 57 year old male who presents with complaining of constipation. Patient states he usually has have bowel movement every day but for the last 6 days he did not have any bowel movement . Patient complaining of abdominal distention and increasing of flatus with nausea and decrease of appetite. Patient states he took [id number] oral and suppository laxative without having bowel movements. Patient rated his pain 7/10 and states she called nurse line and was recommended to come to emergency room. Review of Systems Review of Systems Constitutional: Denies fever or chills [] Eyes: Denies change in visual acuity, redness, or eye pain [] HENT: Denies nasal congestion or sore throat [] Respiratory: Denies cough or shortness of breath [] Cardiovascular: No additional information not addressed in HPI [] GI: Reports constipation, abdominal pain, nausea, , denies vomiting, bloody stools or diarrhea [] : Denies dysuria or hematuria [] Musculoskeletal: Denies back pain or joint pain [] Integument: Denies rash or skin lesions [] Neurologic: Denies headache, focal weakness or sensory changes [] Endocrine: Denies polyuria or polydipsia [] All other systems were reviewed and found to be within normal limits, except as documented in this note. Allergies Allergies Allergies Coded Allergies Type Severity Reaction Last Updated Verified codeine Allergy Intermediate RASH 10/10/17 Yes Physical Exam Physical Exam Constitutional: Well nourished, mild distress, non-toxic appearance. [] HENT: Normocephalic, atraumatic, oropharynx moist. [] Eyes: PERRLA, EOMI, conjunctiva normal, no discharge. [] Neck: Normal range of motion, no tenderness, supple, no stridor. [] Cardiovascular:Heart rate regular rhythm, no murmur [] Lungs & Thorax: Bilateral breath sounds clear to auscultation [] Abdomen: Bowel sounds hyperactive, mildly distended with gas, soft, no tenderness, no masses, no pulsatile masses. Suprapubic catheter in place. 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 Skin: Warm, dry, no erythema, no rash. [] Back: No tenderness, no CVA tenderness. [] Extremities: No tenderness, no cyanosis, no clubbing, ROM intact, no edema. [] Neurologic: Alert and oriented X 3, normal motor function, normal sensory function, no focal deficits noted. [] Psychologic: Affect anxious, judgement normal, mood normal. [] Current Patient Data Vital Signs Vital Signs Date Time Temp Pulse Resp B/P (MAP) Pulse Ox O2 Delivery O2 Flow Rate FiO2 08/17/18 14:10 98.1 103 18 137/79 (98) 97 Room Air 98.1 Lab Values Laboratory Tests Test 08/17/18 15:30 White Blood Count 7.0 x10^3/uL (4.0-11.0) Red Blood Count 4.31 x10^6/uL (4.30-5.70) Hemoglobin 14.1 g/dL (13.0-17.5) Hematocrit 40.7 % (39.0-53.0) Mean Corpuscular Volume 94 fL (79-100) Mean Corpuscular Hemoglobin 33 pg (25-35) Mean Corpuscular Hemoglobin Concent 35 g/dL (31-37) Red Cell Distribution Width 13.7 % (11.5-14.5) Platelet Count 309 x10^3/uL (140-400) Neutrophils (%) (Auto) 64 % (31-73) Lymphocytes (%) (Auto) 19 % (24-48) L Monocytes (%) (Auto) 11 % (0-9) H Eosinophils (%) (Auto) 5 % (0-3) H Basophils (%) (Auto) 1 % (0-3) Neutrophils # (Auto) 4.5 x10^3uL (1.8-7.7) Lymphocytes # (Auto) 1.4 x10^3/uL (1.0-4.8) Monocytes # (Auto) 0.8 x10^3/uL (0.0-1.1) Eosinophils # (Auto) 0.4 x10^3/uL (0.0-0.7) Basophils # (Auto) 0.1 x10^3/uL (0.0-0.2) Sodium Level 139 mmol/L (136-145) Potassium Level 4.0 mmol/L (3.5-5.1) Chloride Level 96 mmol/L (98-107) L Carbon Dioxide Level 36 mmol/L (21-32) H Anion Gap 7 (6-14) Blood Urea Nitrogen 9 mg/dL (8-26) Creatinine 1.0 mg/dL (0.7-1.3) Estimated GFR (Cockcroft-Gault) 76.5 BUN/Creatinine Ratio 9 (6-20) Glucose Level 90 mg/dL (70-99) Calcium Level 9.1 mg/dL (8.5-10.1) Magnesium Level 1.7 mg/dL (1.8-2.4) L Total Bilirubin 0.2 mg/dL (0.2-1.0) Aspartate Amino Transferase (AST) 18 U/L (15-37) Alanine Aminotransferase (ALT) 18 U/L (16-63) Alkaline Phosphatase 78 U/L (46-116) Total Protein 6.9 g/dL (6.4-8.2) Albumin 3.4 g/dL (3.4-5.0) Albumin/Globulin Ratio 1.0 (1.0-1.7) Lipase 168 U/L (73-393) Laboratory Tests 08/17/18 15:30 Laboratory Tests 08/17/18 15:30 EKG EKG [] Radiology/Procedures Radiology/Procedures [facility] [address] [place] [address] IMAGING REPORT Signed PATIENT: JADON HONEYCUTT ACCOUNT: [id number] : 1960 LOCATION: ER AGE: 57 SEX: M EXAM STATUS: REG ER ORD. PHYSICIAN: BALA PALENCIA MD REASON: constipation PROCEDURE: CT ABDOMEN PELVIS WO CONTRAST CT of the abdomen and pelvis without contrast, 08/17/2018: HISTORY: Constipation, abdominal pain Noncontrast scans were obtained as requested. Emphysematous changes are present in the lung bases. The unopacified liver is unremarkable. No gallbladder abnormality is seen. The pancreas is unremarkable. The spleen is of normal size. There is bilateral renal cortical scarring. There is a cluster of 2 calculi in the lower pole of the left kidney with the largest of these measuring 9 mm. The renal collecting systems and ureters are not dilated. No ureteral calculus is evident. Moderate aortoiliac calcific plaquing is present without evidence of aneurysm. No abdominal or pelvic adenopathy is seen. The prostate gland is mildly enlarged and contains calcifications. A suprapubic catheter extends into the collapsed urinary bladder. There is gas and stool scattered throughout the colon. There is a moderate amount of stool in the cecum and descending colon. The appendix is visualized and is of normal size. It contains a small amount of radiopaque material without evidence of inflammation. The small bowel loops are unremarkable. No free air or free fluid is evident in the abdomen or pelvis. IMPRESSION: 1. Nonobstructing left intrarenal calculi. 2. Increased stool in the right colon. 3. Mild nonspecific prostatic enlargement. 4. Suprapubic bladder catheter in satisfactory position. RS Compliance Statement: One or more of the following individualized dose reduction techniques were utilized for this examination: 1. Automated exposure control 2. Adjustment of the mA and/or kV according to patient size 3. Use of iterative reconstruction technique Electronically signed by: Gualberto Olson MD (08/17/2018 3:21 PM) [facility] DICTATED and SIGNED BY: GUALBERTO OLSON MD DATE: 08/17/18 1514 Course & Med Decision Making Course & Med Decision Making Pertinent Labs and Imaging studies reviewed. (See chart for details) discharge: I've spoken with the patient and/or caregivers. I've explained the patient's condition, diagnosis and treatment plan based on information available to me at this time. I've answered the patient's and/or caregivers questions and addressed any concerns. The patient and/or caregivers have a good understanding the patient's diagnosis, condition and treatment plan as can be expected at this point. Vital signs have been stabilized. The patient's condition is stable for discharge from the emergency department. The patient will pursue further outpatient evaluation with her primary care provider or other designated consulting physician as outlined in the discharge instructions. Patient and/or caregivers are agreeable to this plan of care and follow-up instructions have been explained in detail. The patient and/or caregivers have received these instructions in written format and expressed understanding of these discharge instructions. The patient and her caregivers are aware that if any significant change in condition or worsening of symptoms should prompt him to immediately return to this of the closest emergency department. If an emergent department is not readily available I would encourage him to call 911. Guru Disclaimer Dragon Disclaimer This electronic medical record was generated, in whole or in part, using a voice recognition dictation system. Departure Departure Impression: Primary Impression: Constipation Additional Impressions: Tobacco abuse Tobacco abuse counseling Disposition: HOME, SELF-CARE (at 1609) Condition: STABLE Referrals: JEANNETTE NOEL MD (PCP) Patient Instructions: Constipation, Adult, Smoking Cessation, Tips For Success Additional Instructions: Drink plenty of liquids Follow-up with your primary care physician in 3-5 days Return to ER if not getting better Scripts Peg 3350/Na Sulf,Bicarb,Cl/Kcl (GOLYTELY SOLUTION) 4,000 Ml Soln.recon 250 ML PO Q1HR PRN for CONSTIPATION, #1 MISC Prov: BALA PALENCIA MD 08/17/18 Magnesium Citrate (MAGNESIUM CITRATE) 296 Ml Solution 296 ML PO ONCE, #296 ML Prov: BALA PALENCIA MD 08/17/18 Problem Qualifiers BALA PALENCIA MD Aug 17, 2018 15:22
--- NOTE | 2018-08-17 15:25 | RAD ---
CT of the abdomen and pelvis without contrast, 08/17/2018: HISTORY: Constipation, abdominal pain Noncontrast scans were obtained as requested. Emphysematous changes are present in the lung bases. The unopacified liver is unremarkable. No gallbladder abnormality is seen. The pancreas is unremarkable. The spleen is of normal size. There is bilateral renal cortical scarring. There is a cluster of 2 calculi in the lower pole of the left kidney with the largest of these measuring 9 mm. The renal collecting systems and ureters are not dilated. No ureteral calculus is evident. Moderate aortoiliac calcific plaquing is present without evidence of aneurysm. No abdominal or pelvic adenopathy is seen. The prostate gland is mildly enlarged and contains calcifications. A suprapubic catheter extends into the collapsed urinary bladder. There is gas and stool scattered throughout the colon. There is a moderate amount of stool in the cecum and descending colon. The appendix is visualized and is of normal size. It contains a small amount of radiopaque material without evidence of inflammation. The small bowel loops are unremarkable. No free air or free fluid is evident in the abdomen or pelvis. IMPRESSION: 1. Nonobstructing left intrarenal calculi. 2. Increased stool in the right colon. 3. Mild nonspecific prostatic enlargement. 4. Suprapubic bladder catheter in satisfactory position. PQRS Compliance Statement: One or more of the following individualized dose reduction techniques were utilized for this examination: 1. Automated exposure control 2. Adjustment of the mA and/or kV according to patient size 3. Use of iterative reconstruction technique Electronically signed by: Gualberto Olson MD (08/17/2018 3:21 PM) [facility]
[2018-08-17 15:53] LABS: BASO # 0.1 x10^3/uL (0.0-0.2); BASO % 1 % (0-3); EOS # 0.4 x10^3/uL (0.0-0.7); EOS % 5 % (0-3); HEMATOCRIT 40.7 % (39.0-53.0); HEMOGLOBIN 14.1 g/dL (13.0-17.5); LYMPH # 1.4 x10^3/uL (1.0-4.8); LYMPH % 19 % (24-48); MEAN CORPUSCULAR HEMOGLOBIN 33 pg (25-35); MEAN CORPUSCULAR HGB CONC 35 g/dL (31-37); MEAN CORPUSCULAR VOLUME 94 fL (79-100); MONO # 0.8 x10^3/uL (0.0-1.1); MONO % 11 % (0-9); NEUT # 4.5 x10^3uL (1.8-7.7); NEUT % 64 % (31-73); PLATELET COUNT 309 x10^3/uL (140-400); RED BLOOD COUNT 4.31 x10^6/uL (4.30-5.70); RED CELL DISTRIBUTION WIDTH 13.7 % (11.5-14.5)
[2018-08-17 16:06] LABS: CALCIUM 9.1 mg/dL (8.5-10.1); GFR 76.5
[2018-08-17] MEDS ORDERED: PEG4000S8 PO (16:12)
[2018-08-17] MEDS ORDERED: MAGN296S9 PO (16:12)
[2018-08-17 16:13] LABS: ALBUMIN 3.4 g/dL (3.4-5.0); MAGNESIUM 1.7 mg/dL (1.8-2.4); TOTAL BILIRUBIN 0.2 mg/dL (0.2-1.0); TOTAL PROTEIN 6.9 g/dL (6.4-8.2)
== END 2018-08-17 16:38 | disposition home or self-care (01) ==
LOC: ER 13:31
DX: K59.00 Constipation, unspecified (principal); N20.0 Calculus of kidney; N40.0 Benign prostatic hyperplasia without lower urinary tract symptoms; F31.9 Bipolar disorder, unspecified; J44.9 Chronic obstructive pulmonary disease, unspecified; F17.210 Nicotine dependence, cigarettes, uncomplicated; Z86.73 Personal history of transient ischemic attack (TIA), and cerebral infarction without residual deficits; Z71.6 Tobacco abuse counseling; Z88.5 Allergy status to narcotic agent
CPT/HCPCS: 36415; 74176; 80053; 83690; 83735; 85025; 99285-25

== ENCOUNTER 2019-02-15 17:30 | Emergency (ER) | payer OTHER ==
[~2019-02-15] VITALS: Ht 188 cm; Wt 81.6 kg
[~2019-02-15 17:30] MED LIST changes: +CLON1TAB11 PO; -CLON1TAB4 PO; +MAGN296S9 PO; +PEG4000S8 PO
[2019-02-15] MEDS ORDERED: IPRATRPIUM/ALBUTEROL 0.5/2.5MG 3 ML NEBU. NEB ONE ×2 (17:45→18:00)
[2019-02-15] MEDS ORDERED: DEXAMETHASONE SOD PHOS 20 MG/5 ML VIAL. IV ONE (18:00)
[2019-02-15] MEDS ORDERED: methylPREDNISolone SOD SUCC PF 125 MG/2 ML VIAL. IV ONE (18:00)
[2019-02-15] MEDS ORDERED: PRED50TA PO (18:02)
[2019-02-15] MEDS ORDERED: ALBU1.25 NEB (18:02)
--- NOTE | 2019-02-15 18:02 | PHYS DOC ---
Past Medical History Past Medical History: Bipolar, COPD, CVA, Prostatitis Past Surgical History: Other Additional Past Surgical Histo: Hernia, SUPRAPUBIC CATH Alcohol Use: None Drug Use: None Adult General Chief Complaint Chief Complaint: DYSPNEA/RESPIRATOY DISTRESS HPI HPI Patient is a 58 year old male with history of COPD who presents to the ED today requesting a breathing treatment due to shortness of breath. Patient states he was in the ED visiting a family member, he states he was walking home and got short of air. He states he did not have any of his inhalers with him because his insurance will not pay for the inhalers any more. He states he was heading home to give himself a breathing treatment using his nebulizer machine. Denies any fever. Patient is a current smoker. Review of Systems Review of Systems Constitutional: Denies fever or chills [] Eyes: Denies change in visual acuity, redness, or eye pain [] HENT: Denies nasal congestion or sore throat [] Respiratory: reports cough and shortness of breath [] Cardiovascular: No additional information not addressed in HPI [] GI: Denies abdominal pain, nausea, vomiting, bloody stools or diarrhea [] : Denies dysuria or hematuria [] Musculoskeletal: Denies back pain or joint pain [] Integument: Denies rash or skin lesions [] Neurologic: Denies headache, focal weakness or sensory changes [] All other systems were reviewed and found to be within normal limits, except as documented in this note. Current Medications Current Medications Current Medications Medications (Trade) Dose Ordered Sig/Lester Start Time Stop Time Status Last Admin Dose Admin Albuterol/ Ipratropium (Duoneb) 3 ml 1X ONCE 02/15/19 17:45 02/15/19 17:46 UNV Dexamethasone Sodium Phosphate (Decadron) 10 mg 1X ONCE 02/15/19 18:00 02/15/19 18:01 Methylprednisolone Sodium Succinate (SOLU-Medrol 125MG VIAL) 125 mg 1X ONCE 02/15/19 17:45 02/15/19 17:46 UNV Allergies Allergies Allergies Coded Allergies Type Severity Reaction Last Updated Verified codeine Allergy Intermediate RASH 10/10/17 Yes Physical Exam Physical Exam Constitutional: Well developed, well nourished, no acute distress, non-toxic appearance. [] HENT: Normocephalic, atraumatic, bilateral external ears normal, oropharynx moist, no oral exudates, nose normal. [] Eyes: PERRLA, EOMI, conjunctiva normal, no discharge. [] Neck: Normal range of motion, no tenderness, supple, no stridor. [] Cardiovascular:Heart rate regular rhythm, no murmur [] Lungs & Thorax: Patient is short of air, chest is tight. Abdomen: Bowel sounds normal, soft, no tenderness, no masses, no pulsatile masses. [] Skin: Warm, dry, no erythema, no rash. [] Back: No tenderness, no CVA tenderness. [] Extremities: No tenderness, no cyanosis, no clubbing, ROM intact, no edema. [] Neurologic: Alert and oriented X 3, normal motor function, normal sensory function, no focal deficits noted. [] Psychologic: Affect normal, judgement normal, mood normal. [] Current Patient Data Vital Signs Vital Signs Date Time Temp Pulse Resp B/P (MAP) Pulse Ox O2 Delivery O2 Flow Rate FiO2 02/15/19 17:45 97 Nasal Cannula 2.0 EKG EKG [] Radiology/Procedures Radiology/Procedures [] Course & Med Decision Making Course & Med Decision Making Pertinent Labs and Imaging studies reviewed. (See chart for details) This is a COPD 58-year-old male patient presenting to the ED today requesting a breathing treatment, patient was in the ED visiting another family member, he was ambulating home, he became short of air, he did not have his inhalers because insurance will not pay for inhaler anymore, he states he uses a nebulizer machine and was heading at home to use it. He was given a DuoNeb treatment in the ED, he requested to be discharged after the DuoNeb treatment. He states his breathing is back to baseline and is feeling better. His lungs have cleared up. O2 sats 98% on room air. Heart rate 87. Patient was discharged to home. Encouraged to consider smoking cessation. D/ c with prednisone and albuterol. F/u with PCP next week Dragon Disclaimer Dragon Disclaimer This electronic medical record was generated, in whole or in part, using a voice recognition dictation system. Departure Departure Impression: Primary Impression: COPD exacerbation Additional Impression: Smoking addiction Disposition: HOME, SELF-CARE Condition: STABLE Referrals: JEANNETTE NOEL MD (PCP) Follow-up in the course of this week or next week Patient Instructions: Chronic Obstructive Pulmonary Disease, Smoking Cessation , Tips For Success Additional Instructions: You were evaluated in the emergency room for COPD exacerbation. Ensure you complete the prescribed prednisone, use breathing treatments at home as needed. Follow-up with your own doctor in the course of this week or next week. Scripts Albuterol Sulfate (ALBUTEROL SULFATE NEB SOLN) 1.25 Mg/3 Ml Vial.neb 1 VIAL NEB Q6HRS, #150 ML Prov: VERA TO APRN 02/15/19 Prednisone (PREDNISONE) 50 Mg Tablet 1 TAB PO DAILY, #5 TAB Prov: VERA TO APRN 02/15/19 Problem Qualifiers VERA TO APRN Feb 15, 2019 18:02
[2019-02-15 18:04] LABS: CALCIUM 9.2 mg/dL (8.5-10.1); CREATININE 0.9 mg/dL (0.7-1.3); GFR 86.1; POTASSIUM 4.7 mmol/L (3.5-5.1)
[2019-02-15 18:05] LABS: MAGNESIUM 1.8 mg/dL (1.8-2.4)
[2019-02-15 18:15] VITALS: BP 163/94
[2019-02-15] MEDS ORDERED: predniSONE 20 MG TABLET PO ONE (18:30)
[2019-05-11] MEDS ORDERED: CEFD300C PO (10:29)
[2019-05-11] MEDS ORDERED: PRED-220 PO (10:29)
[2019-05-11] MEDS ORDERED: DOXY100T PO (10:29)
== END 2019-02-15 18:28 | disposition home or self-care (01) ==
LOC: ER 17:30
DX: J44.1 Chronic obstructive pulmonary disease with (acute) exacerbation (principal); F17.200 Nicotine dependence, unspecified, uncomplicated; F31.9 Bipolar disorder, unspecified; Z86.73 Personal history of transient ischemic attack (TIA), and cerebral infarction without residual deficits; Z88.5 Allergy status to narcotic agent
CPT/HCPCS: 36415; 80048; 82553; 83735; 83880; 84484; 87040; 94640; 96374; 99285; J2930; J7512

== ENCOUNTER 2019-03-04 23:08 | Inpatient (IN) | payer OTHER ==
[~2019-03-04] VITALS: Ht 188 cm; Wt 84.2 kg
[~2019-03-04 23:08] MED LIST changes: +ALBU1.25 NEB; +PRED50TA PO
[2019-03-04] MEDS ORDERED: methylPREDNISolone SOD SUCC PF 125 MG/2 ML VIAL. IV ONE (23:30)
[2019-03-04] MEDS ORDERED: ALBUTEROL SULFATE 2.5 MG/3 ML NEBU. NEB ONE (23:30)
[2019-03-04 23:48] LABS: BASO # 0.1 x10^3/uL (0.0-0.2); BASO % 1 % (0-3); EOS # 0.3 x10^3/uL (0.0-0.7); EOS % 4 % (0-3); HEMOGLOBIN 14.2 g/dL (13.0-17.5); LYMPH # 1.3 x10^3/uL (1.0-4.8); LYMPH % 20 % (24-48); MEAN CORPUSCULAR HEMOGLOBIN 33 pg (25-35); MEAN CORPUSCULAR HGB CONC 34 g/dL (31-37); MEAN CORPUSCULAR VOLUME 97 fL (79-100); MONO # 0.6 x10^3/uL (0.0-1.1); MONO % 8 % (0-9); NEUT # 4.5 x10^3uL (1.8-7.7); NEUT % 67 % (31-73); PLATELET COUNT 167 x10^3/uL (140-400); RED BLOOD COUNT 4.35 x10^6/uL (4.30-5.70); RED CELL DISTRIBUTION WIDTH 14.5 % (11.5-14.5); WHITE BLOOD COUNT 6.8 x10^3/uL (4.0-11.0)
[2019-03-04 23:57] LABS: CALCIUM 9.3 mg/dL (8.5-10.1); GFR 76.2; POTASSIUM 4.2 mmol/L (3.5-5.1)
[2019-03-05 00:02] LABS: ALBUMIN 3.5 g/dL (3.4-5.0); ALBUMIN/GLOBULIN RATIO 1.1 (1.0-1.7); TOTAL BILIRUBIN 0.3 mg/dL (0.2-1.0); TOTAL PROTEIN 6.6 g/dL (6.4-8.2)
--- NOTE | 2019-03-05 01:34 | PHYS DOC ---
Past Medical History Past Medical History: Bipolar, COPD, CVA, Prostatitis Past Surgical History: Other Additional Past Surgical Histo: Hernia, SUPRAPUBIC CATH Alcohol Use: None Drug Use: None Adult General Chief Complaint Chief Complaint: SHORTNESS OF BREATH HPI HPI Patient is a 58-year-old male who presents with complaint of approximately a day history of shortness of breath with productive cough. He denies any fever. Patient states his symptoms have been progressively worsening and states that over the last 2 days he has been very short of breath. He states that shortness of breath is worsened with minimal exertion. He does admit to a history of COPD and states that he wears oxygen only at night. Medics indicate that when they had arrived to his house his oxygen saturation was around 90 on room air and they state that lungs were very tight. Patient was given a total of 2 DuoNeb treatments while in route and they state that he does have improved air movement at this time. Patient indicates that he has not been running a fever. He states that he is feeling a little bit better at this time but is still short of breath. Review of Systems Review of Systems Constitutional: Denies fever or chills [] Respiratory: Complains of cough and shortness of breath [] Cardiovascular: No additional information not addressed in HPI [] GI: Denies abdominal pain, nausea, vomiting or diarrhea [] Neurologic: Denies headache, focal weakness or sensory changes [] All other systems were reviewed and found to be within normal limits, except as documented in this note. Current Medications Current Medications Current Medications Medications (Trade) Dose Ordered Sig/Lester Start Time Stop Time Status Last Admin Dose Admin Albuterol Sulfate (Ventolin Neb Soln) 5 mg 1X ONCE 03/04/19 23:30 03/04/19 23:31 DC 03/04/19 23:40 5 MG Methylprednisolone Sodium Succinate (SOLU-Medrol 125MG VIAL) 125 mg 1X ONCE 03/04/19 23:30 03/04/19 23:31 DC 03/04/19 23:43 125 MG Allergies Allergies Allergies Coded Allergies Type Severity Reaction Last Updated Verified codeine Allergy Intermediate RASH 10/10/17 Yes Physical Exam Physical Exam Constitutional: Well developed, well nourished, no acute distress, non-toxic appearance. [] HENT: Normocephalic, atraumatic, bilateral external ears normal, oropharynx moist, no oral exudates, nose normal. [] Eyes: PERRLA, EOMI, conjunctiva normal, no discharge. [] Neck: Normal range of motion, no tenderness, supple. [] Cardiovascular: Mildly tachycardic rate with regular rhythm[] Lungs & Thorax: Decreased breath sounds are noted throughout with inspiratory and expiratory wheezes to auscultation [] Abdomen: Bowel sounds normal, soft, no tenderness. [] Skin: Warm, dry, no erythema, no rash. [] Extremities: No tenderness, no cyanosis, no clubbing, ROM intact, no edema. [] Neurologic: Alert and oriented X 3, no focal deficits noted. [] Current Patient Data Vital Signs Vital Signs Date Time Temp Pulse Resp B/P (MAP) Pulse Ox O2 Delivery O2 Flow Rate FiO2 03/05/19 01:30 82 126/65 (85) 94 Nasal Cannula 2.0 03/04/19 23:08 98.1 22 98.1 Lab Values Laboratory Tests Test 03/04/19 23:30 White Blood Count 6.8 x10^3/uL (4.0-11.0) Red Blood Count 4.35 x10^6/uL (4.30-5.70) Hemoglobin 14.2 g/dL (13.0-17.5) Hematocrit 42.0 % (39.0-53.0) Mean Corpuscular Volume 97 fL (79-100) Mean Corpuscular Hemoglobin 33 pg (25-35) Mean Corpuscular Hemoglobin Concent 34 g/dL (31-37) Red Cell Distribution Width 14.5 % (11.5-14.5) Platelet Count 167 x10^3/uL (140-400) Neutrophils (%) (Auto) 67 % (31-73) Lymphocytes (%) (Auto) 20 % (24-48) L Monocytes (%) (Auto) 8 % (0-9) Eosinophils (%) (Auto) 4 % (0-3) H Basophils (%) (Auto) 1 % (0-3) Neutrophils # (Auto) 4.5 x10^3uL (1.8-7.7) Lymphocytes # (Auto) 1.3 x10^3/uL (1.0-4.8) Monocytes # (Auto) 0.6 x10^3/uL (0.0-1.1) Eosinophils # (Auto) 0.3 x10^3/uL (0.0-0.7) Basophils # (Auto) 0.1 x10^3/uL (0.0-0.2) Sodium Level 138 mmol/L (136-145) Potassium Level 4.2 mmol/L (3.5-5.1) Chloride Level 100 mmol/L (98-107) Carbon Dioxide Level 30 mmol/L (21-32) Anion Gap 8 (6-14) Blood Urea Nitrogen 13 mg/dL (8-26) Creatinine 1.0 mg/dL (0.7-1.3) Estimated GFR (Cockcroft-Gault) 76.2 BUN/Creatinine Ratio 13 (6-20) Glucose Level 95 mg/dL (70-99) Calcium Level 9.3 mg/dL (8.5-10.1) Total Bilirubin 0.3 mg/dL (0.2-1.0) Aspartate Amino Transferase (AST) 19 U/L (15-37) Alanine Aminotransferase (ALT) 28 U/L (16-63) Alkaline Phosphatase 82 U/L (46-116) Troponin I Quantitative < 0.017 ng/mL (0.000-0.055) CH-Ghk-O-Type Natriuretic Peptide 92 pg/mL (0-124) Total Protein 6.6 g/dL (6.4-8.2) Albumin 3.5 g/dL (3.4-5.0) Albumin/Globulin Ratio 1.1 (1.0-1.7) Laboratory Tests 03/04/19 23:30 Laboratory Tests 03/04/19 23:30 EKG EKG [] Radiology/Procedures Radiology/Procedures [] Impressions: Chest x-ray demonstrates no acute process. Course & Med Decision Making Course & Med Decision Making Pertinent Labs and Imaging studies reviewed. (See chart for details) [] Dragon Disclaimer Dragon Disclaimer This electronic medical record was generated, in whole or in part, using a voice recognition dictation system. Departure Departure Impression: Primary Impression: COPD exacerbation Additional Impression: Hypoxemia Disposition: 09 ADMITTED INPATIENT Admitting Physician: Jeannette Noel Condition: IMPROVED Referrals: JEANNETTE NOEL MD (PCP) Problem Qualifiers RAMONA CLINTON Jr. DO Mar 05, 2019 01:34
[2019-03-05] MEDS ORDERED: ACETAMINOPHEN 325 MG TABLET. PO PRN (01:45)
[2019-03-05 02:45] VITALS: BP 141/76
[2019-03-05] MEDS ORDERED: DIVA-53 PO (03:18)
[2019-03-05] MEDS ORDERED: OXYB10TA PO (03:18)
[2019-03-05] MEDS ORDERED: MIRT15TA3 PO (03:18)
[2019-03-05] MEDS ORDERED: LEVE500T6 PO (03:18)
[2019-03-05] MEDS ORDERED: QUET300T PO (03:18)
[2019-03-05] MEDS ORDERED: LORA1TAB PO (03:18)
[2019-03-05] MEDS ORDERED: FURO20TA3 PO (03:18)
[2019-03-05] MEDS ORDERED: DULO30CA43 PO (03:18)
--- NOTE | 2019-03-05 05:59 | RAD ---
CHEST PA LATERAL Technique: PA and lateral views of the chest were obtained. Clinical History: short of air; cough Comparison: None. Findings: The heart and pulmonary vasculature appear within normal limits. There is patchy linear opacities in the lower lungs.. The pleural margins are clear. The lungs are hyperinflated Impression: Mild infiltrates in the lower lungs could be discoid atelectasis or early pneumonia. Electronically signed by: Timothy Sanchez III, MD (03/05/2019 5:57 AM) [facility]
--- NOTE | 2019-03-05 06:47 | EKG ---
[facility] [address] [place] [address] Test Date: 2019-03-04 Test Time: 23:25:45 Pat Name: JADON HONEYCUTT Department: Room: 671 1 Gender: M [employer]: : 1960 Requested By: RAMONA CLINTON Order Number: [id number] Reading MD: Javed Crawford MD Measurements Intervals [place] Rate: 92 P: 65 MD: 128 QRS: 24 QRSD: 80 T: 62 QT: 352 QTc: 440 Interpretive Statements SINUS RHYTHM CONSIDER SEPTAL INFARCT Electronically Signed On 03-05-2019 9:59:30 CDT by Javed Crawford MD
[2019-03-05 07:15] VITALS: BP 140/84
[2019-03-05] MEDS: IPRATRPIUM/ALBUTEROL 0.5/2.5MG 3 ML NEBU. NEB SCH ×4 (08:19→19:49)
--- NOTE | 2019-03-05 09:39 | PDOC ---
Provider Note Provider Note Pt seen.H&P dictated.#[id number] ONEL SOMERS MD Mar 05, 2019 09:39
[2019-03-05] MEDS ORDERED: AZITHROMYCIN 250 MG TABLET. PO ONE (10:00)
--- NOTE | 2019-03-05 10:32 | HP ---
ADMIT DATE: 03/05/2019 REASON FOR ADMISSION TO THE HOSPITAL: COPD with acute exacerbation. HISTORY OF PRESENT ILLNESS: The patient is a 58-year-old male, patient of Dr. Jeannette Espana who has history of chronic COPD, on home oxygen and he was having shortness of breath last night, was brought to the hospital. Was given breathing treatment, did not improve. Was given Solu-Medrol, did not improve. Was admitted to the hospital with complaints of cough with wheezing, scant production and no fever. PAST MEDICAL HISTORY: The patient was last admitted to the hospital 1-/2 years ago, has history of COPD on oxygen 2 liters at home, has history of pneumonia in the past, CVA, depression, chronic kidney disease, anxiety, bipolar, hypertension, hyperlipidemia. PAST SURGICAL HISTORY: Hernia repair. FAMILY HISTORY: Positive for heart disease, cancer. SOCIAL HISTORY: Smoked for 50 years, smoked 4 packs, now is less than half a pack. Negative for drugs or alcohol. At home, the patient also has a suprapubic catheter for BPH. Is at home, ambulating. He lives with his daughter. REVIEW OF SYMPTOMS: CARDIAC: No chest pain. GASTROINTESTINAL: No nausea or vomiting. RESPIRATORY: Has some shortness of breath with wheezing and cough. Rest of her system was reviewed and negative. ALLERGIES: THE PATIENT IS ALLERGIC TO CODEINE. MEDICATIONS AT HOME: The patient is on oxygen 2 liters. He is on DuoNeb 4 times daily inhaler, ProAir 4 times daily, atorvastatin 20 mg daily, budesonide or Symbicort twice a day, buspirone 30 mg twice a day, Depakote 500 mg twice a day, fluoxetine 1 capsule 30 mg daily, Lasix 20 mg daily, Mucinex 600 mg takes 2 tablets twice a day, Keppra 500 mg twice a day, lorazepam 1 mg twice a day, mirtazapine 50 mg daily, Singulair 10 mg daily, nicotine smoke cigarettes, oxybutynin 10 mg daily, Protonix 40 mg daily, Seroquel 300 mg daily, Zoloft 100 mg 1-1/2 tablets daily, Flomax 0.4 daily, topiramate 50 mg twice a day, ProAir 90 mg daily, verapamil 80 mg 3 times daily. PHYSICAL EXAMINATION: GENERAL: The patient is comfortable, not in any distress. VITAL SIGNS: Temperature 98, pulse 107, respirations 22, blood pressure 116/75, 95% on room air. HEENT: Head is atraumatic. Pupils equal. Oral cavity: No congestion. NECK: Supple. Thyroid not enlarged. JVD not elevated. CHEST: COPD pattern. CARDIOVASCULAR: S1, S2. LUNGS: Wheezing, both inspiratory, expiratory mostly on the bases. ABDOMEN: Soft, bowel sounds present, no mass palpable. EXTERNAL GENITALIA: Suprapubic catheter. He exchanges catheter every 4 weeks, next is due in 1 week. EXTREMITIES: No calf tenderness, no edema. NEUROLOGIC: Moving all extremities. No focal deficits noted. LABORATORY DATA: Shows a white count of 7, hemoglobin 14, platelets 767. Electrolytes show sodium 138, potassium 4.2, chloride 100, bicarb 30, anion gap 8, BUN 13, creatinine 1.0. Glucose 95. LFTs normal. Troponins negative. BNP negative. Chest x-ray shows mild inflation of the lung bases, hyperinflated lungs. FINAL IMPRESSION: 1. Chronic obstructive pulmonary disease with acute exacerbation. 2. Chronic obstructive pulmonary disease with hypoxia, on home oxygen. 3. Chronic smoker, smoked for 50 years, still smokes. 4. Suprapubic catheter for benign prostatic hypertrophy. 5. History of seizures, bipolar. PLAN: At this time, admit to hospital; given Solu-Medrol, Zithromax and DuoNeb 4 times daily, IV Solu-Medrol and breathing treatments and see how the patient's condition improves in the next 24-48 years. ONEL SOMERS MD DR: BAR/edu JOB#: [id number] / [id number] JEANNETTE Stuart MD
[2019-03-05] MEDS: BUDESONIDE 0.5 MG/2 ML NEBU. NEB SCH ×2 (11:00→19:49)
[2019-03-05 11:03] VITALS: BP 118/66
[2019-03-05] MEDS: SERTRALINE 50 MG TABLET. PO SCH (11:10)
[2019-03-05] MEDS: levETIRAcetam 500 MG TABLET PO SCH ×2 (11:10→21:00)
[2019-03-05] MEDS: QUEtiapine 100 MG TABLET. PO SCH (11:11)
[2019-03-05] MEDS: NICOTINE 21MG PATCH. TD SCH (11:11)
[2019-03-05] MEDS: busPIRone 10 MG TABLET. PO SCH ×2 (11:11→21:01)
[2019-03-05] MEDS: TOPIRAMATE 25 MG TABLET. PO SCH ×2 (11:11→21:00)
[2019-03-05] MEDS: FUROSEMIDE 20 MG TABLET PO SCH (11:12)
[2019-03-05] MEDS: DULoxetine HCL 30 MG CAPSULE.DR PO SCH (11:12)
[2019-03-05] MEDS: DIVALPROEX DELAYED RELEASE 500 MG TABLET.DR. PO SCH ×2 (11:12→21:00)
[2019-03-05] MEDS: OXYBUTYNIN CHLORIDE 5 MG TABLET PO SCH ×2 (11:12→21:01)
[2019-03-05] MEDS: PANTOPRAZOLE 40 MG TABLET.DR. PO SCH (11:12)
[2019-03-05] MEDS: LORazepam 1 MG TABLET PO SCH (11:12)
[2019-03-05] MEDS: methylPREDNISolone SOD SUCC PF 40 MG/ML VIAL. IV SCH ×3 (11:13→21:02)
[2019-03-05] MEDS: VERAPAMIL 40 MG TABLET. PO SCH ×3 (11:13→21:00)
[2019-03-05] MEDS ORDERED: PROAIR 90 MCG IH SCH (13:00)
[2019-03-05 15:02] VITALS: BP 104/57
[2019-03-05 19:41] VITALS: BP_SYST 64
[2019-03-05] MEDS ORDERED: MONTELUKAST SODIUM 10 MG TABLET. PO SCH (21:00)
[2019-03-05] MEDS ORDERED: MIRTAZAPINE 15 MG TABLET PO SCH (21:00)
[2019-03-05] MEDS ORDERED: ENOXAPARIN 40 MG/0.4 ML SYRINGE. SQ SCH (21:00)
[2019-03-05] MEDS ORDERED: ATORVASTATIN CALCIUM 20 MG TABLET PO SCH (21:00)
[2019-03-05] MEDS ORDERED: NON FORMULARY ITEM (Budesonide/Formoterol Fumarate (Symbicort 160-4.5 Mcg Inhaler) 2 PUFF) IH SCH (21:00)
[2019-03-05 23:29] VITALS: BP 129/69
[2019-03-06 03:08] VITALS: BP 113/59
[2019-03-06 04:55] LABS: BASO % 0 % (0-3); EOS % 0 % (0-3); HEMATOCRIT 38.7 % (39.0-53.0); HEMOGLOBIN 12.9 g/dL (13.0-17.5); LYMPH # 0.6 x10^3/uL (1.0-4.8); LYMPH % 6 % (24-48); MEAN CORPUSCULAR HEMOGLOBIN 32 pg (25-35); MEAN CORPUSCULAR HGB CONC 33 g/dL (31-37); MEAN CORPUSCULAR VOLUME 96 fL (79-100); MONO # 0.3 x10^3/uL (0.0-1.1); MONO % 2 % (0-9); NEUT # 10.7 x10^3uL (1.8-7.7); NEUT % 92 % (31-73); PLATELET COUNT 162 x10^3/uL (140-400); RED BLOOD COUNT 4.04 x10^6/uL (4.30-5.70); RED CELL DISTRIBUTION WIDTH 14.5 % (11.5-14.5); WHITE BLOOD COUNT 11.6 x10^3/uL (4.0-11.0)
[2019-03-06 05:22] LABS: CALCIUM 8.4 mg/dL (8.5-10.1); GFR 76.2; POTASSIUM 3.8 mmol/L (3.5-5.1)
[2019-03-06] MEDS: PANTOPRAZOLE 40 MG TABLET.DR. PO SCH (05:55)
[2019-03-06] MEDS: methylPREDNISolone SOD SUCC PF 40 MG/ML VIAL. IV SCH ×2 (05:55→16:16)
[2019-03-06 07:00] VITALS: BP 119/83
[2019-03-06] MEDS: BUDESONIDE 0.5 MG/2 ML NEBU. NEB SCH (08:00)
[2019-03-06] MEDS: VERAPAMIL 40 MG TABLET. PO SCH ×2 (08:25→16:17)
[2019-03-06] MEDS: DIVALPROEX DELAYED RELEASE 500 MG TABLET.DR. PO SCH (08:25)
[2019-03-06] MEDS: FUROSEMIDE 20 MG TABLET PO SCH (08:25)
[2019-03-06] MEDS: OXYBUTYNIN CHLORIDE 5 MG TABLET PO SCH (08:26)
[2019-03-06] MEDS: SERTRALINE 50 MG TABLET. PO SCH (08:26)
[2019-03-06] MEDS: DULoxetine HCL 30 MG CAPSULE.DR PO SCH (08:26)
[2019-03-06] MEDS: QUEtiapine 100 MG TABLET. PO SCH (08:26)
[2019-03-06] MEDS: LORazepam 1 MG TABLET PO SCH (08:26)
[2019-03-06] MEDS: busPIRone 10 MG TABLET. PO SCH (08:26)
[2019-03-06] MEDS: TOPIRAMATE 25 MG TABLET. PO SCH (08:27)
[2019-03-06] MEDS: levETIRAcetam 500 MG TABLET PO SCH (08:27)
[2019-03-06] MEDS: NICOTINE 21MG PATCH. TD SCH (08:27)
[2019-03-06] MEDS: ALBUTEROL SULFATE 2.5 MG/3 ML NEBU. NEB SCH ×2 (09:00→16:00)
[2019-03-06] MEDS ORDERED: TAMSULOSIN 0.4 MG CAP.ER.24H. PO SCH (09:00)
[2019-03-06] MEDS ORDERED: AZITHROMYCIN 250 MG TABLET. PO SCH (09:00)
[2019-03-06 09:42] LABS: % LYMPHS 5 % (24-48); % MONOS 3 % (0-10); % SEGS 92 % (35-66)
[2019-03-06 09:43] LABS: PLT ESTIMATE ADEQUATE (ADEQUATE)
[2019-03-06 09:44] LABS: OVALOCYTES OCC
[2019-03-06] MEDS ORDERED: IV NORMAL SALINE 1000ML BAG 1,000 ML IV ONE ×2 (09:45→10:00)
--- NOTE | 2019-03-06 09:46 | PDOC ---
PROGRESS NOTES Subjective Subjective feeling better want to go home Objective Objective Vital Signs Date Time Temp Pulse Resp B/P (MAP) Pulse Ox O2 Delivery O2 Flow Rate FiO2 03/06/19 08:30 Nasal Cannula 2.0 03/06/19 08:25 74 113/59 03/06/19 07:00 97.8 18 94 97.8 Intake and Output 03/06/19 07:00 Intake Total 3060 ml Output Total 2400 ml Balance 660 ml Intake Oral 3060 ml Output Urine Total 2400 ml Physical Exam Abdomen: Normal bowel sounds, Soft Heart: Regular rate, Normal S1, Normal S2 Extremities: No clubbing General: Alert HEENT: Atraumatic Lungs: Normal air movement MUSCULOSKELETAL: No swelling Neuro: Normal speech Psych/Mental Status: Mental status NL Skin: No breakdown Diagnosis Problem List Problems Medical Problems: (1) COPD exacerbation Status: Acute (2) Hypoxemia Status: Acute Assessment Assessment Problems Medical Problems: (1) COPD exacerbation Status: Acute (2) Hypoxemia Status: Acute FINAL IMPRESSION: 1. Chronic obstructive pulmonary disease with acute exacerbation. 2. Chronic obstructive pulmonary disease with hypoxia, on home oxygen. 3. Chronic smoker, smoked for 50 years, still smokes. 4. Suprapubic catheter for benign prostatic hypertrophy. 5. History of seizures, bipolar. PLAN: d/c home today po prednisone+zithromax. labs ok. cxr minimal atelectasis At this time, admit to hospital; given Solu-Medrol, Zithromax and DuoNeb 4 times daily, IV Solu-Medrol and breathing treatments and see how the patient's condition improves in the next 24-48 years. Plan Plan of Care Problems Medical Problems: (1) COPD exacerbation Status: Acute (2) Hypoxemia Status: Acute Comment Review of Relevant I have reviewed the following items megan (where applicable) has been applied. Labs Laboratory Tests Test 03/06/19 04:10 White Blood Count 11.6 x10^3/uL (4.0-11.0) Red Blood Count 4.04 x10^6/uL (4.30-5.70) Hemoglobin 12.9 g/dL (13.0-17.5) Hematocrit 38.7 % (39.0-53.0) Mean Corpuscular Volume 96 fL (79-100) Mean Corpuscular Hemoglobin 32 pg (25-35) Mean Corpuscular Hemoglobin Concent 33 g/dL (31-37) Red Cell Distribution Width 14.5 % (11.5-14.5) Platelet Count 162 x10^3/uL (140-400) Neutrophils (%) (Auto) 92 % (31-73) Lymphocytes (%) (Auto) 6 % (24-48) Monocytes (%) (Auto) 2 % (0-9) Eosinophils (%) (Auto) 0 % (0-3) Basophils (%) (Auto) 0 % (0-3) Neutrophils # (Auto) 10.7 x10^3uL (1.8-7.7) Lymphocytes # (Auto) 0.6 x10^3/uL (1.0-4.8) Monocytes # (Auto) 0.3 x10^3/uL (0.0-1.1) Eosinophils # (Auto) 0.0 x10^3/uL (0.0-0.7) Basophils # (Auto) 0.0 x10^3/uL (0.0-0.2) Segmented Neutrophils % 92 % (35-66) Lymphocytes % 5 % (24-48) Monocytes % 3 % (0-10) Platelet Estimate Adequate (ADEQUATE) Ovalocytes Occ Sodium Level 128 mmol/L (136-145) Potassium Level 3.8 mmol/L (3.5-5.1) Chloride Level 94 mmol/L (98-107) Carbon Dioxide Level 25 mmol/L (21-32) Anion Gap 9 (6-14) Blood Urea Nitrogen 18 mg/dL (8-26) Creatinine 1.0 mg/dL (0.7-1.3) Estimated GFR (Cockcroft-Gault) 76.2 Glucose Level 129 mg/dL (70-99) Calcium Level 8.4 mg/dL (8.5-10.1) Medications Current Medications Albuterol Sulfate (Ventolin Neb Soln) 2.5 mg RTQID NEB Last administered on 03/06at 09:00; Start 03/06/19 at 12:00 Atorvastatin Calcium (Lipitor) 20 mg HS PO Last administered on 03/05/19at 21:00 ; Start 03/05/19 at 21:00 Azithromycin (Zithromax) 250 mg DAILY PO Last administered on 03/06/19at 08:26; Start 03/06/19 at 09:00 Azithromycin (Zithromax) 500 mg 1X ONCE PO Last administered on 03/05/19 11:10 ; Start 03/05/19 at 10:00; Stop 03/05/19 at 10:01; Status DC Budesonide (Pulmicort) 0.5 mg RTBID NEB Last administered on 03/06/19 08:00; Start 03/05/19 at 11:00 Buspirone HCl (Buspar) 30 mg BID PO Last administered on 03/06/19 08:26; Start 03/05/19 at 11:00 Divalproex Sodium (Depakote) 500 mg BID PO Last administered on 03/06/19 08:25 ; Start 03/05/19 at 11:00 Duloxetine HCl (Cymbalta) 30 mg DAILY PO Last administered on 03/06/19 08:26; Start 03/05/19 at 11:00 Enoxaparin Sodium (Lovenox 40mg Syringe) 40 mg Q24H SQ Last administered on 03/05 21:02; Start 03/05/19 at 21:00 Furosemide (Lasix) 20 mg DAILY PO Last administered on 03/06/19 08:25; Start at 11:00 Guaifenesin (Mucinex) 1,200 mg BID PO Last administered on 03/06/19 08:26; Start 03/05/19 at 11:00 Levetiracetam (Keppra) 500 mg BID PO Last administered on 03/06/19 08:27; Start 03/05/19 at 11:00 Lorazepam (Ativan) 1 mg DAILY PO Last administered on 03/06/19 08:26; Start 03/05/19 at 11:00 Methylprednisolone Sodium Succinate (SOLU-Medrol 40MG VIAL) 80 mg Q8HRS IV Last administered on 03/06/19 05:55; Start 03/05/19 at 10:00 Mirtazapine (Remeron) 15 mg QHS PO Last administered on 03/05/19 21:01; Start 03/05/19 at 21:00 Montelukast Sodium (Singulair) 10 mg QHS PO Last administered on 03/05/19 21:00 ; Start 03/05/19 at 21:00 Nicotine (Nicoderm Cq 21mg) 1 patch DAILY TD Last administered on 03/06/19 08: 27; Start 03/05/19 at 11:00 Non-Formulary Medication (Budesonide/ Formoterol Fumarate (Symbicort 160-4.5 Mcg Inhaler)) 2 puff BID IH ; Start 03/05/19 at 21:00; Status UNV Non-Formulary Medication ([ProAir HFA] ) 90 mcg QID IH ; Start 03/05/19 at 13:00 ; Status UNV Oxybutynin Chloride (Ditropan) 5 mg BID PO Last administered on 03/06/19 08:26 ; Start 03/05/19 at 11:00 Pantoprazole Sodium (Protonix) 40 mg DAILYAC PO Last administered on 03/06/19 05:55; Start 03/05/19 at 11:00 Quetiapine Fumarate (SEROquel) 300 mg DAILY PO Last administered on 03/06/19 08 :26; Start 03/05/19 at 11:00 Sertraline HCl (Zoloft) 150 mg DAILY PO Last administered on 03/06/19 08:26; Start 03/05/19 at 11:00 Tamsulosin HCl (Flomax) 0.4 mg DAILY PO Last administered on 03/06/19 08:27; Start 03/06/19 at 09:00 Topiramate (Topamax) 50 mg BID PO Last administered on 03/06/19 08:27; Start at 11:00 Verapamil HCl (Calan) 80 mg TID PO Last administered on 03/06/19 08:25; Start 03/05/19 at 11:00 Vitals/I & O Vital Sign - Last 24 Hours 03/05/19 03/05/19 03/05/19 03/05/19 11:03 11:13 12:14 13:48 Temp 98.3 98.3 Pulse 84 84 91 Resp 20 B/P (MAP) 118/66 (83) 118/66 97/56 Pulse Ox 97 O2 Delivery Nasal Cannula Nasal Cannula O2 Flow Rate 2.0 2.0 03/05/19 03/05/19 03/05/19 03/05/19 15:02 16:32 19:41 19:50 Temp 97.6 97.7 97.6 97.7 Pulse 82 79 Resp 18 16 B/P (MAP) 104/57 (73) 64/ Pulse Ox 96 92 O2 Delivery Nasal Cannula Nasal Cannula Nasal Cannula Nasal Cannula O2 Flow Rate 2.0 2.0 2.0 2.0 03/05/19 03/05/19 03/05/19 03/06/19 21:00 21:00 23:29 03:08 Temp 98.0 98.0 98.0 98.0 Pulse 95 85 74 Resp 16 16 B/P (MAP) 115/60 129/69 (89) 113/59 (77) Pulse Ox 94 93 O2 Delivery Nasal Cannula Nasal Cannula Nasal Cannula O2 Flow Rate 2.0 2.0 2.0 03/06/19 03/06/19 03/06/19 07:00 08:25 08:30 Temp 97.8 97.8 Pulse 73 74 Resp 18 B/P (MAP) 119/83 (95) 113/59 Pulse Ox 94 O2 Delivery Nasal Cannula Nasal Cannula O2 Flow Rate 2.0 2.0 Intake and Output 03/05/19 03/05/19 03/06/19 15:00 23:00 07:00 Intake Total 520 ml 560 ml 1980 ml Output Total 1000 ml 1400 ml Balance 520 ml -440 ml 580 ml ONEL SOMERS MD Mar 06, 2019 09:46
[2019-03-06] MEDS ORDERED: AZIT250T6 PO (09:53)
[2019-03-06] MEDS ORDERED: PRED50TA PO (09:53)
[2019-03-06 10:39] VITALS: BP 123/60
[2019-03-06 14:59] VITALS: BP 108/57
[2019-03-06 16:05] LABS: POTASSIUM 4.8 mmol/L (3.5-5.1)
[2019-03-06 16:17] VITALS: BP 108/57
--- NOTE | 2019-03-06 17:35 | NUR ---
Discharge Note: HOLLI HONEYCUTT [facility] Discharge instructions and discharge home medications reviewed with Patient and a copy given. All questions have been answered and understanding verbalized. The following instructions and handouts were given: F/U with PCP within one week. Discontinued lines and drains: Peripheral IV intact. Patient discharged to Home or Self Care with Self via Wheelchair.
[2019-03-06] MEDS ORDERED: LACTOBACILLUS RHAMNOSUS GG 1 CAPSULE. PO SCH (21:00)
--- NOTE | 2019-03-09 16:19 | PDOC ---
Provider Note Provider Note Discharge summary dictated.#[id number]. ONEL SOMERS MD Mar 09, 2019 16:19
--- NOTE | 2019-03-10 | DS ---
DATE OF DISCHARGE: 03/06/2019 REASON FOR ADMISSION TO THE HOSPITAL: COPD with acute exacerbation. CONSULTATIONS: None. PROCEDURE: None. HOSPITAL COURSE: The patient is a 58-year-old male with history of chronic COPD, is on home oxygen and a nebulizer machine. He was having shortness of breath with wheezing, was brought to the hospital and slightly hypoxic more than usual, was given IV Solu-Medrol, Zithromax, breathing treatments and he improved and he was discharged. The patient has chronic suprapubic catheter, history of seizures that was stable. CBC, CMP was unremarkable. ONEL SOMERS MD DR: BAR/edu JOB#: [id number] / [id number] Cristy Ardon MD
[2019-05-11] MEDS ORDERED: CEFD300C PO (10:29)
[2019-05-11] MEDS ORDERED: PRED-220 PO (10:29)
[2019-05-11] MEDS ORDERED: DOXY100T PO (10:29)
== END 2019-03-06 17:45 | disposition home or self-care (01) | DRG 191 ==
LOC: ER 23:08 → 6 SOUTH 03-05 01:30
PROVIDERS: ADMIT Internal Medicine; ATTEND Internal Medicine
DX: J44.1 Chronic obstructive pulmonary disease with (acute) exacerbation (principal); R65.10 Systemic inflammatory response syndrome (SIRS) of non-infectious origin without acute organ dysfunction; R09.02 Hypoxemia; F31.9 Bipolar disorder, unspecified; F41.9 Anxiety disorder, unspecified; I12.9 Hypertensive chronic kidney disease with stage 1 through stage 4 chronic kidney disease, or unspecified chronic kidney disease; E78.5 Hyperlipidemia, unspecified; N18.9 Chronic kidney disease, unspecified; F17.200 Nicotine dependence, unspecified, uncomplicated; N40.0 Benign prostatic hyperplasia without lower urinary tract symptoms; Z99.81 Dependence on supplemental oxygen; Z88.5 Allergy status to narcotic agent; Z87.01 Personal history of pneumonia (recurrent); Z86.73 Personal history of transient ischemic attack (TIA), and cerebral infarction without residual deficits
CPT/HCPCS: 36415; 71046; 80048; 80051; 80053; 83880; 84484; 85007; 85025; 93005; 94640; 94760; 96374; J1650; J2920; J2930; J7030; J7613; J7620; J7626; Q0144; 99285-25

== ENCOUNTER 2019-04-25 23:43 | Inpatient (IN) | payer OTHER ==
[~2019-04-25] VITALS: Ht 188 cm; Wt 83.9 kg
[~2019-04-25 23:43] MED LIST changes: +DIVA-53 PO; +DULO30CA43 PO; +FURO20TA3 PO; +LEVE500T6 PO; +MIRT15TA3 PO; +OXYB10TA PO; +QUET300T PO
[2019-04-26] MEDS ORDERED: ONDANSETRON PF 4 MG/2 ML VIAL. IV PRN
[2019-04-26] MEDS ORDERED: ACETAMINOPHEN 325 MG TABLET. PO PRN
--- NOTE | 2019-04-26 | PHYS DOC ---
Past Medical History Past Medical History: Bipolar, COPD, CVA, Prostatitis Past Surgical History: Other Additional Past Surgical Histo: Hernia, SUPRAPUBIC CATH Alcohol Use: None Drug Use: None Adult General Chief Complaint Chief Complaint: DYSPNEA/RESPIRATOY DISTRESS [facility] HPI Patient is a 58 year old [f__sex] who presents with [] Review of Systems Review of Systems Constitutional: Denies fever or chills [] Eyes: Denies change in visual acuity, redness, or eye pain [] HENT: Denies nasal congestion or sore throat [] Respiratory: Denies cough or shortness of breath [] Cardiovascular: No additional information not addressed in HPI [] GI: Denies abdominal pain, nausea, vomiting, bloody stools or diarrhea [] : Denies dysuria or hematuria [] Musculoskeletal: Denies back pain or joint pain [] Integument: Denies rash or skin lesions [] Neurologic: Denies headache, focal weakness or sensory changes [] Endocrine: Denies polyuria or polydipsia [] All other systems were reviewed and found to be within normal limits, except as documented in this note. Allergies Allergies Allergies Coded Allergies Type Severity Reaction Last Updated Verified codeine Allergy Intermediate RASH 10/10/17 Yes Physical Exam Physical Exam Constitutional: Well developed, well nourished, no acute distress, non-toxic appearance. [] HENT: Normocephalic, atraumatic, bilateral external ears normal, oropharynx moist, no oral exudates, nose normal. [] Eyes: PERRLA, EOMI, conjunctiva normal, no discharge. [] Neck: Normal range of motion, no tenderness, supple, no stridor. [] Cardiovascular:Heart rate regular rhythm, no murmur [] Lungs & Thorax: Bilateral breath sounds clear to auscultation [] Abdomen: Bowel sounds normal, soft, no tenderness, no masses, no pulsatile masses. [] Skin: Warm, dry, no erythema, no rash. [] Back: No tenderness, no CVA tenderness. [] Extremities: No tenderness, no cyanosis, no clubbing, ROM intact, no edema. [] Neurologic: Alert and oriented X 3, normal motor function, normal sensory function, no focal deficits noted. [] Psychologic: Affect normal, judgement normal, mood normal. [] Current Patient Data Vital Signs Vital Signs Date Time Temp Pulse Resp B/P (MAP) Pulse Ox O2 Delivery O2 Flow Rate FiO2 04/25/19 23:43 97.9 85 18 111/58 (75) 90 Room Air 97.9 Lab Values Laboratory Tests Test 04/25/19 23:50 White Blood Count 7.7 x10^3/uL (4.0-11.0) Red Blood Count 4.04 x10^6/uL (4.30-5.70) L Hemoglobin 13.4 g/dL (13.0-17.5) Hematocrit 39.0 % (39.0-53.0) Mean Corpuscular Volume 97 fL (79-100) Mean Corpuscular Hemoglobin 33 pg (25-35) Mean Corpuscular Hemoglobin Concent 34 g/dL (31-37) Red Cell Distribution Width 13.5 % (11.5-14.5) Platelet Count 217 x10^3/uL (140-400) Neutrophils (%) (Auto) 61 % (31-73) Lymphocytes (%) (Auto) 25 % (24-48) Monocytes (%) (Auto) 9 % (0-9) Eosinophils (%) (Auto) 5 % (0-3) H Basophils (%) (Auto) 1 % (0-3) Neutrophils # (Auto) 4.7 x10^3uL (1.8-7.7) Lymphocytes # (Auto) 1.9 x10^3/uL (1.0-4.8) Monocytes # (Auto) 0.7 x10^3/uL (0.0-1.1) Eosinophils # (Auto) 0.4 x10^3/uL (0.0-0.7) Basophils # (Auto) 0.1 x10^3/uL (0.0-0.2) Sodium Level 139 mmol/L (136-145) Potassium Level 3.8 mmol/L (3.5-5.1) Chloride Level 98 mmol/L (98-107) Carbon Dioxide Level 33 mmol/L (21-32) H Anion Gap 8 (6-14) Blood Urea Nitrogen 15 mg/dL (8-26) Creatinine 0.8 mg/dL (0.7-1.3) Estimated GFR (Cockcroft-Gault) 98.6 BUN/Creatinine Ratio 19 (6-20) Glucose Level 109 mg/dL (70-99) H Lactic Acid Level 0.8 mmol/L (0.4-2.0) Calcium Level 10.0 mg/dL (8.5-10.1) Total Bilirubin 0.4 mg/dL (0.2-1.0) Aspartate Amino Transferase (AST) 19 U/L (15-37) Alanine Aminotransferase (ALT) 21 U/L (16-63) Alkaline Phosphatase 71 U/L (46-116) Creatine Kinase 93 U/L (39-308) Creatine Kinase MB (Mass) 2.7 ng/mL (0.0-3.6) Creatine Kinase MB Relative Index 2.9 % (0-4) Troponin I Quantitative < 0.017 ng/mL (0.000-0.055) DJ-Kke-N-Type Natriuretic Peptide 88 pg/mL (0-124) Total Protein 6.2 g/dL (6.4-8.2) L Albumin 3.5 g/dL (3.4-5.0) Albumin/Globulin Ratio 1.3 (1.0-1.7) Laboratory Tests 04/25/19 23:50 Laboratory Tests 04/25/19 23:50 EKG EKG @0023 NSR at 83bpm, NO ST elevation, Radiology/Procedures Radiology/Procedures PROCEDURE: CHEST PA & LATERAL CHEST PA LATERAL CLINICAL INDICATION: Dyspnea COMPARISON: 03/04/2019 FINDINGS: Heart is normal in size. Lungs are hyperinflated without focal consolidation. No pneumothorax or pleural effusion. Visualized bony thorax is within normal limits. IMPRESSION: COPD changes. Electronically signed by: Los Noel DO (04/26/2019 2:39 AM) [facility] Course & Med Decision Making Course & Med Decision Making Pertinent Labs and Imaging studies reviewed. (See chart for details) [] Dragon Disclaimer Dragon Disclaimer This electronic medical record was generated, in whole or in part, using a voice recognition dictation system. Departure Departure Impression: Primary Impression: COPD exacerbation Additional Impressions: Urinary retention Urinary tract infection Disposition: 09 ADMITTED INPATIENT Admitting Physician: Jeannette Noel (discussed with Dr. Ruiz (recreational aide)) Condition: STABLE Referrals: JEANNETTE NOEL MD (PCP) Problem Qualifiers Additional Impressions: Urinary tract infection Urinary tract infection type: catheter-associated UTI Indwelling urinary catheter type: unspecified Encounter type: initial encounter Qualified Codes: T83.511A - Infection and inflammatory reaction due to indwelling urethral catheter, initial encounter; N39.0 - Urinary tract infection, site not specified MARY FOREMAN DO April 26, 2019 00:00
[2019-04-26 00:10] LABS: BASO # 0.1 x10^3/uL (0.0-0.2); BASO % 1 % (0-3); EOS # 0.4 x10^3/uL (0.0-0.7); EOS % 5 % (0-3); HEMOGLOBIN 13.4 g/dL (13.0-17.5); LYMPH # 1.9 x10^3/uL (1.0-4.8); LYMPH % 25 % (24-48); MEAN CORPUSCULAR HEMOGLOBIN 33 pg (25-35); MEAN CORPUSCULAR HGB CONC 34 g/dL (31-37); MEAN CORPUSCULAR VOLUME 97 fL (79-100); MONO # 0.7 x10^3/uL (0.0-1.1); MONO % 9 % (0-9); NEUT # 4.7 x10^3uL (1.8-7.7); NEUT % 61 % (31-73); PLATELET COUNT 217 x10^3/uL (140-400); RED BLOOD COUNT 4.04 x10^6/uL (4.30-5.70); RED CELL DISTRIBUTION WIDTH 13.5 % (11.5-14.5); WHITE BLOOD COUNT 7.7 x10^3/uL (4.0-11.0)
[2019-04-26 00:27] LABS: CREATININE 0.8 mg/dL (0.7-1.3); GFR 98.6; POTASSIUM 3.8 mmol/L (3.5-5.1)
[2019-04-26] MEDS ORDERED: AZITHRMYCN 500MG IVPB FOR OMNI 250 ML IV ONE (00:30)
[2019-04-26] MEDS ORDERED: IPRATRPIUM/ALBUTEROL 0.5/2.5MG 3 ML NEBU. NEB ONE (00:30)
[2019-04-26] MEDS ORDERED: DEXAMETHASONE SOD PHOS 20 MG/5 ML VIAL. IV ONE (00:30)
[2019-04-26 00:33] LABS: ALBUMIN 3.5 g/dL (3.4-5.0); ALBUMIN/GLOBULIN RATIO 1.3 (1.0-1.7); TOTAL BILIRUBIN 0.4 mg/dL (0.2-1.0); TOTAL PROTEIN 6.2 g/dL (6.4-8.2)
[2019-04-26 01:59] LABS: BILIRUBIN,URINE NEGATIVE (NEG); CLARITY,URINE CLEAR; COLOR,URINE YELLOW; NITRITE,URINE NEGATIVE (NEG); PROTEIN,URINE NEGATIVE (NEG-TRACE); UROBILINOGEN,URINE 0.2 mg/dL (0.2 mg/dL)
[2019-04-26 02:20] LABS: BACTERIA,URINE FEW /HPF (0-FEW); HYALINE CASTS, URINE FEW /HPF; RBC,URINE >40 /HPF (0-2); SQUAMOUS EPITHELIAL CELL,UR OCC /LPF; WBC,URINE 20-40 /HPF (0-4)
--- NOTE | 2019-04-26 02:42 | RAD ---
CHEST PA LATERAL CLINICAL INDICATION: Dyspnea COMPARISON: 03/04/2019 FINDINGS: Heart is normal in size. Lungs are hyperinflated without focal consolidation. No pneumothorax or pleural effusion. Visualized bony thorax is within normal limits. IMPRESSION: COPD changes. Electronically signed by: Los Espana DO (04/26/2019 2:39 AM) [facility]
[2019-04-26 03:18] VITALS: BP 116/62
[2019-04-26] MEDS ORDERED: cefTRIAXone IV Push 1 GM VIAL. IVP ONE (04:00)
[2019-04-26 07:30] VITALS: BP 108/67
[2019-04-26] MEDS ORDERED: IPRATRPIUM/ALBUTEROL 0.5/2.5MG 3 ML NEBU. NEB SCH (08:00)
[2019-04-26] MEDS ORDERED: ALBUTEROL SULFATE 2.5 MG/3 ML NEBU. NEB PRN (10:30)
--- NOTE | 2019-04-26 10:30 | PDOC ---
Provider Note Provider Note Pt seen.H&P dictated. #[id number] ONEL SOMERS MD April 26, 2019 10:30
[2019-04-26 11:26] VITALS: BP 112/62
[2019-04-26] MEDS: ENOXAPARIN 40 MG/0.4 ML SYRINGE. SQ SCH (11:26)
[2019-04-26] MEDS: NICOTINE 21MG PATCH. TD SCH (11:26)
[2019-04-26] MEDS: LORazepam 1 MG TABLET PO SCH (11:27)
[2019-04-26] MEDS: TAMSULOSIN 0.4 MG CAP.ER.24H. PO SCH (11:27)
[2019-04-26] MEDS: DEXAMETHASONE SOD PHOS 4 MG/ML VIAL IV SCH ×3 (11:27→23:36)
[2019-04-26] MEDS: FUROSEMIDE 20 MG TABLET PO SCH (11:27)
[2019-04-26] MEDS: DULoxetine HCL 30 MG CAPSULE.DR PO SCH (11:27)
[2019-04-26] MEDS: busPIRone 10 MG TABLET. PO SCH ×2 (11:27→21:25)
[2019-04-26] MEDS: OXYBUTYNIN CHLORIDE 5 MG TABLET PO SCH ×2 (11:28→21:24)
[2019-04-26] MEDS: PANTOPRAZOLE 40 MG TABLET.DR. PO SCH (11:28)
[2019-04-26] MEDS: TOPIRAMATE 25 MG TABLET. PO SCH ×2 (11:28→21:25)
[2019-04-26] MEDS: DIVALPROEX DELAYED RELEASE 500 MG TABLET.DR. PO SCH ×2 (11:28→21:25)
[2019-04-26] MEDS: levETIRAcetam 500 MG TABLET PO SCH ×2 (11:28→21:24)
[2019-04-26] MEDS: SERTRALINE 50 MG TABLET. PO SCH (11:29)
--- NOTE | 2019-04-26 11:31 | EKG ---
[facility] [address] [place] [address] Test Date: 2019-04-26 Test Time: 00:23:08 Pat Name: JADON HONEYCUTT Department: Room: Gender: Location Manager: : 1960 Requested By: MARY FOREMAN Order Number: [id number] Reading MD: Measurements Intervals Martin Rate: 83 P: 56 IN: 130 QRS: 7 QRSD: 88 T: 66 QT: 376 QTc: 442 Interpretive Statements SINUS RHYTHM NO SPECIFIC ECG ABNORMALITIES RI6.01 No previous ECG available for comparison
[2019-04-26] MEDS: IPRATRPIUM/ALBUTEROL 0.5/2.5MG 3 ML NEBU. IH SCH ×3 (11:33→19:52)
[2019-04-26] MEDS: BUDESONIDE 0.5 MG/2 ML NEBU. NEB SCH ×2 (11:33→19:52)
--- NOTE | 2019-04-26 11:36 | HP ---
ADMIT DATE: 04/26/2019 MEDICAL HISTORY AND PHYSICAL PATIENT LOCATION: [facility]. REASON FOR ADMISSION TO THE HOSPITAL: COPD with acute exacerbation. HISTORY OF PRESENT ILLNESS: The patient is a 58-year-old male, patient of Dr. Jeannette Espana, who has history of chronic COPD, on home oxygen 2 liters. She also has a suprapubic catheter, has history of anxiety, bipolar and seizures. She was having problems with shortness of breath with wheezing and came to the Emergency Room. Chest x-ray was negative for acute infiltrates. She was given breathing treatment, did not improve and was admitted to the hospital. She was given IV Solu-Medrol and IV antibiotics. PAST MEDICAL HISTORY: The patient was last in the hospital a month ago. History of COPD, anxiety, depression, bipolar and seizures. PAST SURGICAL HISTORY: Hernia repair, suprapubic catheter. FAMILY HISTORY: Heart disease, cancer. SOCIAL HISTORY: She smoked for 50 years, 4 packs, now less than half a pack. Negative for any street drugs. She has a suprapubic catheter, lives at home, with oxygen. ALLERGIES: CODEINE. MEDICATIONS AT HOME: The patient is on DuoNebs 4 times daily, oxygen, atorvastatin 20 mg daily, budesonide twice a day, buspirone 30 mg twice a day, Depakote 500 mg twice a day, Cymbalta 30 mg daily, Lasix 20 mg daily, Mucinex twice a day, Keppra 500 mg twice a day, lorazepam 1 mg daily, mirtazapine 15 mg daily, Singulair 10 mg daily, Nicoderm patch 21 mg daily, oxybutynin 10 mg daily, Protonix 40 mg daily, Seroquel 300 mg daily, Zoloft 100 mg 1-1/2 tablets daily, Flomax 0.4 daily, topiramate 50 mg twice a day, ProAir 4 times a day and verapamil 80 mg 3 times daily. REVIEW OF SYMPTOMS: CARDIAC ARIAS: No chest pain. GASTROINTESTINAL: No nausea or vomiting. Only complaints of cough, some clear sputum. The patient had a suprapubic catheter changed in the Emergency Room. PHYSICAL EXAMINATION: VITAL SIGNS: At the time of admission, temperature 97, pulse 85, respirations 18, blood pressure 111/58 and 90% on room air, 95 on 2 liters. HEENT: Head is atraumatic. Pupils equal. Oral cavity, no congestion. NECK: Supple. Thyroid not enlarged. JVD not elevated. CHEST: Chest COPD pattern. CARDIOVASCULAR: S1, S2. LUNGS: Diminished breath sounds, bilateral wheezing, posterior lungs. ABDOMEN: Soft. No mass palpable. He has a suprapubic catheter. It was changed yesterday in the ER. RECTAL EXAMINATION: Deferred. EXTREMITIES: No calf tenderness, no edema. Pulses 1+. NEUROLOGIC: Cranial nerves intact. Power 5/5, moving all extremities. LABORATORY DATA: Shows a white count of 7.7, hemoglobin 13 and platelets 217,000. Electrolytes show sodium 139, potassium 3.8, chloride 98, bicarbonate 33, anion gap 8, BUN 15, creatinine 0.8 and glucose 109. LFTs were normal. Urine shows 40 rbc's, 20-40 wbc's, nitrites negative and leukocyte esterase small. Chest x-ray shows emphysema. FINAL IMPRESSION: 1. Chronic obstructive pulmonary disease with acute exacerbation. 2. Chronic obstructive pulmonary disease, on home oxygen. 3. Suprapubic catheter. 4. Anxiety. 5. Depression. 6. Seizures. 7. Smoking addiction. PLAN: At this time, admit to hospital. He was given IV Decadron. Continue q. 6 hours IV antibiotic, Rocephin and breathing treatments 4 times daily. The patient is improving already and should be able to go home in 1-2 days. ONEL SOMERS MD DR: BAR/edu JOB#: [id number] / [id number] JEANNETTE Stuart MD
[2019-04-26] MEDS ORDERED: PROAIR 90 MCG IH SCH (13:00)
[2019-04-26] MEDS: VERAPAMIL 40 MG TABLET. PO SCH ×2 (14:23→21:25)
[2019-04-26 15:40] VITALS: BP 116/69
[2019-04-26 19:20] VITALS: BP 132/61
[2019-04-26] MEDS ORDERED: NON FORMULARY ITEM (Budesonide/Formoterol Fumarate (Symbicort 160-4.5 Mcg Inhaler) 2 PUFF) IH SCH (21:00)
[2019-04-26] MEDS: MONTELUKAST SODIUM 10 MG TABLET. PO SCH (21:24)
[2019-04-26] MEDS: MIRTAZAPINE 15 MG TABLET PO SCH (21:24)
[2019-04-26] MEDS: ATORVASTATIN CALCIUM 20 MG TABLET PO SCH (21:24)
[2019-04-26] MEDS: QUEtiapine 100 MG TABLET. PO SCH (21:25)
[2019-04-26] MEDS: LACTOBACILLUS RHAMNOSUS GG 1 CAPSULE. PO SCH (21:25)
[2019-04-26 23:41] VITALS: BP 109/57
[2019-04-27 03:15] VITALS: BP 111/60
[2019-04-27] MEDS: cefTRIAXone IV Push 1 GM VIAL. IVP SCH (06:32)
[2019-04-27] MEDS: DEXAMETHASONE SOD PHOS 4 MG/ML VIAL IV SCH ×3 (06:33→17:13)
[2019-04-27 07:00] VITALS: BP 108/65
[2019-04-27] MEDS: BUDESONIDE 0.5 MG/2 ML NEBU. NEB SCH ×2 (07:40→19:47)
[2019-04-27] MEDS: IPRATRPIUM/ALBUTEROL 0.5/2.5MG 3 ML NEBU. IH SCH ×4 (07:40→19:47)
[2019-04-27] MEDS: NICOTINE 21MG PATCH. TD SCH (09:31)
[2019-04-27] MEDS: ENOXAPARIN 40 MG/0.4 ML SYRINGE. SQ SCH (09:32)
[2019-04-27] MEDS: FUROSEMIDE 20 MG TABLET PO SCH (09:32)
[2019-04-27] MEDS: VERAPAMIL 40 MG TABLET. PO SCH ×3 (09:32→20:58)
[2019-04-27] MEDS: LORazepam 1 MG TABLET PO SCH (09:34)
[2019-04-27] MEDS: TOPIRAMATE 25 MG TABLET. PO SCH ×2 (09:34→20:57)
[2019-04-27] MEDS: DIVALPROEX DELAYED RELEASE 500 MG TABLET.DR. PO SCH ×2 (09:34→20:58)
[2019-04-27] MEDS: OXYBUTYNIN CHLORIDE 5 MG TABLET PO SCH ×2 (09:35→20:59)
[2019-04-27] MEDS: SERTRALINE 50 MG TABLET. PO SCH (09:35)
[2019-04-27] MEDS: levETIRAcetam 500 MG TABLET PO SCH ×2 (09:35→20:58)
[2019-04-27] MEDS: TAMSULOSIN 0.4 MG CAP.ER.24H. PO SCH (09:35)
[2019-04-27] MEDS: LACTOBACILLUS RHAMNOSUS GG 1 CAPSULE. PO SCH ×2 (09:35→20:58)
[2019-04-27] MEDS: busPIRone 10 MG TABLET. PO SCH ×2 (09:35→20:58)
[2019-04-27] MEDS: DULoxetine HCL 30 MG CAPSULE.DR PO SCH (09:35)
[2019-04-27] MEDS: PANTOPRAZOLE 40 MG TABLET.DR. PO SCH (09:36)
--- NOTE | 2019-04-27 10:47 | PDOC ---
IM PROGRESS NOTES- Subjective Subjective Still has some cough and congestion. Objective Vitals Vital Signs Date Time Temp Pulse Resp B/P (MAP) Pulse Ox O2 Delivery O2 Flow Rate FiO2 04/27/19 09:32 84 108/65 04/27/19 07:45 97 Nasal Cannula 2.0 04/27/19 07:00 97.4 16 97.4 Input & Output Intake and Output 04/27/19 07:00 Intake Total 3120 ml Output Total 4250 ml Balance -1130 ml Intake Oral 3120 ml Output Urine Total 4250 ml Physical Exam Physical Exam General appearance - alert,ill appearing, and in mild distress and oriented to person, place, and time Mental Status - alert, oriented to person, place, and time, affect appropriate to mood Head - normal Chest -decreased breath sounds bilaterally with bilateral rhonchi and wheezing Heart - S1 and S2 normal Abdomen - soft, nontender, nondistended, no masses or organomegaly Neurological - alert and oriented Musculoskeletal - no muscular tenderness noted Extremities - no pedal edema Skin - warm and dry Labs Laboratory Tests Test 04/25/19 23:50 04/26/19 01:50 04/26/19 03:20 04/26/19 06:10 White Blood Count 7.7 x10^3/uL (4.0-11.0) Red Blood Count 4.04 x10^6/uL (4.30-5.70) Hemoglobin 13.4 g/dL (13.0-17.5) Hematocrit 39.0 % (39.0-53.0) Mean Corpuscular Volume 97 fL (79-100) Mean Corpuscular Hemoglobin 33 pg (25-35) Mean Corpuscular Hemoglobin Concent 34 g/dL (31-37) Red Cell Distribution Width 13.5 % (11.5-14.5) Platelet Count 217 x10^3/uL (140-400) Neutrophils (%) (Auto) 61 % (31-73) Lymphocytes (%) (Auto) 25 % (24-48) Monocytes (%) (Auto) 9 % (0-9) Eosinophils (%) (Auto) 5 % (0-3) Basophils (%) (Auto) 1 % (0-3) Neutrophils # (Auto) 4.7 x10^3uL (1.8-7.7) Lymphocytes # (Auto) 1.9 x10^3/uL (1.0-4.8) Monocytes # (Auto) 0.7 x10^3/uL (0.0-1.1) Eosinophils # (Auto) 0.4 x10^3/uL (0.0-0.7) Basophils # (Auto) 0.1 x10^3/uL (0.0-0.2) Sodium Level 139 mmol/L (136-145) Potassium Level 3.8 mmol/L (3.5-5.1) Chloride Level 98 mmol/L (98-107) Carbon Dioxide Level 33 mmol/L (21-32) Anion Gap 8 (6-14) Blood Urea Nitrogen 15 mg/dL (8-26) Creatinine 0.8 mg/dL (0.7-1.3) Estimated GFR (Cockcroft-Gault) 98.6 BUN/Creatinine Ratio 19 (6-20) Glucose Level 109 mg/dL (70-99) Lactic Acid Level 0.8 mmol/L (0.4-2.0) Calcium Level 10.0 mg/dL (8.5-10.1) Total Bilirubin 0.4 mg/dL (0.2-1.0) Aspartate Amino Transf (AST/SGOT) 19 U/L (15-37) Alanine Aminotransferase (ALT/SGPT) 21 U/L (16-63) Alkaline Phosphatase 71 U/L (46-116) Creatine Kinase 93 U/L (39-308) Creatine Kinase MB (Mass) 2.7 ng/mL (0.0-3.6) Creatine Kinase MB Relative Index 2.9 % (0-4) Troponin I Quantitative < 0.017 ng/mL (0.000-0.055) < 0.017 ng/mL (0.000-0.055) < 0.017 ng/mL (0.000-0.055) CC-Qbf-I-Type Natriuretic Peptide 88 pg/mL (0-124) Total Protein 6.2 g/dL (6.4-8.2) Albumin 3.5 g/dL (3.4-5.0) Albumin/Globulin Ratio 1.3 (1.0-1.7) Urine Collection Type Unknown Urine Color Yellow Urine Clarity Clear Urine pH 7.0 Urine Specific Rogers 1.010 Urine Protein Negative mg/dL (NEG-TRACE) Urine Glucose (UA) Negative mg/dL (NEG) Urine Ketones (Stick) Negative mg/dL (NEG) Urine Blood Large (NEG) Urine Nitrite Negative (NEG) Urine Bilirubin Negative (NEG) Urine Urobilinogen Dipstick 0.2 mg/dL (0.2 mg/dL) Urine Leukocyte Esterase Small (NEG) Urine RBC >40 /HPF (0-2) Urine WBC 20-40 /HPF (0-4) Urine Squamous Epithelial Cells Occ /LPF Urine Bacteria Few /HPF (0-FEW) Urine Hyaline Casts Few /HPF Urine Mucus Slight /LPF Meds Current Medications Albuterol/ Ipratropium (Duoneb) 3 ml RTQID IH Last administered on 04/27/19 07:40; Start 04/26/19 at 12:00 Atorvastatin Calcium (Lipitor) 20 mg HS PO Last administered on 04/26/19 21:24; Start 04/26/19 at 21:00 Budesonide (Pulmicort) 0.5 mg RTBID NEB Last administered on 04/27/19 07:40; Start 04/26/19 at 11:30 Buspirone HCl (Buspar) 30 mg BID PO Last administered on 04/27/19 09:35; Start 04/26/19 at 11:30 Ceftriaxone Sodium (Rocephin) 1 gm Q24H IVP Last administered on 04/27/19 06:32; Start 04/27/19 at 06:00 Dexamethasone Sodium Phosphate (Decadron) 4 mg Q6HRS IV Last administered on 04/27/19 06:33; Start 04/26/19 at 12:00 Divalproex Sodium (Depakote) 500 mg BID PO Last administered on 04/27/19 09:34 ; Start 04/26/19 at 11:30 Duloxetine HCl (Cymbalta) 30 mg DAILY PO Last administered on 04/27/19 09:35; Start 04/26/19 at 11:30 Enoxaparin Sodium (Lovenox 40mg Syringe) 40 mg DAILY SQ Last administered on 04/27/19 09:32; Start 04/26/19 at 11:30 Furosemide (Lasix) 20 mg DAILY PO Last administered on 04/27/19 09:32; Start 04/26/19 at 11:30 Guaifenesin (Mucinex) 1,200 mg BID PO Last administered on 04/27/19 09:36; Start 04/26/19 at 11:30 Lactobacillus Rhamnosus (Culturelle) 1 cap BID PO Last administered on 04/27/19 09:35; Start 04/26/19 at 21:00 Levetiracetam (Keppra) 500 mg BID PO Last administered on 04/27/19 09:35; Sta rt 04/26/19 at 11:30 Lorazepam (Ativan) 1 mg DAILY PO Last administered on 04/27/19 09:34; Start 04/26/19 at 11:30 Mirtazapine (Remeron) 15 mg QHS PO Last administered on 04/26/19 21:24; Start 04/26/19 at 21:00 Montelukast Sodium (Singulair) 10 mg QHS PO Last administered on 04/26/19 21:24; Start 04/26/19 at 21:00 Nicotine (Nicoderm Cq 21mg) 1 patch DAILY TD Last administered on 04/27/19 09:31; Start 04/26/19 at 11:30 Non-Formulary Medication (Budesonide/ Formoterol Fumarate (Symbicort 160-4.5 Mcg Inhaler)) 2 puff BID IH ; Start 04/26/19 at 21:00; Status UNV Non-Formulary Medication ([ProAir HFA] ) 90 mcg QID IH ; Start 04/26/19 at 13:00; Status UNV Oxybutynin Chloride (Ditropan) 5 mg BID PO Last administered on 04/27/19 09:35; Start 04/26/19 at 11:30 Pantoprazole Sodium (Protonix) 40 mg DAILYAC PO Last administered on 04/27/19 09:36; Start 04/26/19 at 11:30 Quetiapine Fumarate (SEROquel) 300 mg QHS PO Last administered on 04/26/19 21:25; Start 04/26/19 at 21:00 Sertraline HCl (Zoloft) 150 mg DAILY PO Last administered on 04/27/19 09:35; Start 04/26/19 at 11:30 Tamsulosin HCl (Flomax) 0.4 mg DAILY PO Last administered on 04/27/19at 09:35; Start 04/26/19 at 11:30 Topiramate (Topamax) 50 mg BID PO Last administered on 04/27/19at 09:34; Start 04/26/19 at 11:30 Verapamil HCl (Calan) 80 mg TID PO Last administered on 04/27/19at 09:32; Start 04/26/19 at 14:00 Assessment Assessment 1. Chronic obstructive pulmonary disease with acute exacerbation. 2. Acute bronchitis 3. Suprapubic catheter. 4. Anxiety. 5. Depression. 6. Seizures. 7. Smoking addiction. 8. Acute on chronic respiratory failure PLAN: I'll decrease IV Decadron to 4mg IV 3 times a day. Continue breathing treatment aerosol treatment oxygenation and IV Rocephin. Plan Plan For more details regarding further plans, please refer to the orders. JEANNETTE NOEL MD April 27, 2019 10:47
--- NOTE | 2019-04-27 10:50 | PDOC ---
Infectious Disease Note Vital Signs: Vital Signs Vital Signs Date Time Temp Pulse Resp B/P (MAP) Pulse Ox O2 Delivery O2 Flow Rate FiO2 04/27/19 09:32 84 108/65 04/27/19 07:45 97 Nasal Cannula 2.0 04/27/19 07:00 97.4 16 97.4 Medications: Inpatient Meds: Current Medications Medications (Trade) Dose Ordered Sig/Lester Start Time Stop Time Status Last Admin Dose Admin Acetaminophen (Tylenol) 650 mg PRN Q4HRS PRN 04/26/19 00:00 04/26/19 23:59 DC 04/26/19 01:32 650 MG Albuterol Sulfate (Ventolin Neb Soln) 2.5 mg PRN Q6HRS PRN 04/26/19 10:30 Albuterol/ Ipratropium (Duoneb) 3 ml RTQID 04/26/19 12:00 04/27/19 07:40 3 ML Atorvastatin Calcium (Lipitor) 20 mg HS 04/26/19 21:00 04/26/19 21:24 20 MG Azithromycin 250 ml @ 250 mls/hr 1X ONCE 04/26/19 00:30 04/26/19 01:29 DC 04/26/19 01:32 250 MLS/HR Budesonide (Pulmicort) 0.5 mg RTBID 04/26/19 11:30 04/27/19 07:40 0.5 MG Buspirone HCl (Buspar) 30 mg BID 04/26/19 11:30 04/27/19 09:35 30 MG Ceftriaxone Sodium (Rocephin) 1 gm Q24H 04/27/19 06:00 04/27/19 06:32 1 GM Dexamethasone Sodium Phosphate (Decadron) 4 mg Q6HRS 04/26/19 12:00 04/27/19 06:33 4 MG Divalproex Sodium (Depakote) 500 mg BID 04/26/19 11:30 04/27/19 09:34 500 MG Duloxetine HCl (Cymbalta) 30 mg DAILY 04/26/19 11:30 04/27/19 09:35 30 MG Enoxaparin Sodium (Lovenox 40mg Syringe) 40 mg DAILY 04/26/19 11:30 04/27/19 09:32 40 MG Furosemide (Lasix) 20 mg DAILY 04/26/19 11:30 04/27/19 09:32 20 MG Guaifenesin (Mucinex) 1,200 mg BID 04/26/19 11:30 04/27/19 09:36 1,200 MG Lactobacillus Rhamnosus (Culturelle) 1 cap BID 04/26/19 21:00 04/27/19 09:35 1 CAP Levetiracetam (Keppra) 500 mg BID 04/26/19 11:30 04/27/19 09:35 500 MG Lorazepam (Ativan) 1 mg DAILY 04/26/19 11:30 04/27/19 09:34 1 MG Mirtazapine (Remeron) 15 mg QHS 04/26/19 21:00 04/26/19 21:24 15 MG Montelukast Sodium (Singulair) 10 mg QHS 04/26/19 21:00 04/26/19 21:24 10 MG Nicotine (Nicoderm Cq 21mg) 1 patch DAILY 04/26/19 11:30 04/27/19 09:31 1 PATCH Non-Formulary Medication (Budesonide/ Formoterol Fumarate (Symbicort 160-4.5 Mcg Inhaler)) 2 puff BID 04/26/19 21:00 UNV Non-Formulary Medication ([ProAir HFA] ) 90 mcg QID 04/26/19 13:00 UNV Ondansetron HCl (Zofran) 4 mg PRN Q8HRS PRN 04/26/19 00:00 04/26/19 23:59 DC 04/26/19 01:31 4 MG Oxybutynin Chloride (Ditropan) 5 mg BID 04/26/19 11:30 04/27/19 09:35 5 MG Pantoprazole Sodium (Protonix) 40 mg DAILYAC 04/26/19 11:30 04/27/19 09:36 40 MG Quetiapine Fumarate (SEROquel) 300 mg QHS 04/26/19 21:00 04/26/19 21:25 300 MG Sertraline HCl (Zoloft) 150 mg DAILY 04/26/19 11:30 04/27/19 09:35 150 MG Tamsulosin HCl (Flomax) 0.4 mg DAILY 04/26/19 11:30 04/27/19 09:35 0.4 MG Topiramate (Topamax) 50 mg BID 04/26/19 11:30 04/27/19 09:34 50 MG Verapamil HCl (Calan) 80 mg TID 04/26/19 14:00 04/27/19 09:32 80 MG Objective: Assessment: GPC bacteremia 1/4 positive POA,ID and MARCELO pending COPD exacerbation SPC Plan: Plan of Care cont rocephin IV Vanc one time dose today f/u BC for id of GPC Thank you [id number] SHAE URBANO MD April 27, 2019 10:50
[2019-04-27 11:00] VITALS: BP 109/60
[2019-04-27] MEDS ORDERED: VANCOMYCIN 1.25 GM in IV NORMAL SALINE 250ML 250 ML IV ONE (11:30)
[2019-04-27 15:00] VITALS: BP 106/49
--- NOTE | 2019-04-27 18:12 | CONS ---
DATE OF CONSULTATION: 04/27/2019 REFERRING PHYSICIAN: Dr. Espana. REASON FOR CONSULTATION: Gram-positive bacteremia. HISTORY OF PRESENT ILLNESS: A 58-year-old male with a history of COPD on home O2 by 2 liters, BPH with suprapubic catheter for one year, anxiety, bipolar, seizure disorder, presented to the ER with shortness of breath with wheezing. Chest x-ray was negative for acute infiltrate. UA showed mild pyuria with leukocyte esterase positive. The patient was given breathing treatment, did not improve, was admitted to the hospital. The patient is started on IV Rocephin and Solu-Medrol. Blood cultures 1/4 bottles are positive for Gram-positive cocci. ID consult has been requested for antibiotic management. Today, the patient says he feels a little better. Denies any back pain, chest pain, nausea, vomiting, diarrhea. Suprapubic was kinked, was changed in the ER. Currently, the patient feels much better. Denies any history of foreign body. The patient was recently hospitalized in March with similar symptoms. PAST MEDICAL HISTORY: COPD, O2 dependent; anxiety; depression; bipolar; seizure disorder; recently treated with p.o. doxycycline two weeks ago for possible UTI; BPH. PAST SURGICAL HISTORY: Hernia repair, suprapubic catheter. FAMILY HISTORY: Heart disease, cancer. SOCIAL HISTORY: Smokes 10 cigarettes a day. Denies any ETOH. He lives at home with his sister. Has one pet dog. No IVDU. ALLERGIES: CODEINE. CURRENT MEDICATIONS: IV Rocephin and Solu-Medrol. Other medications reviewed in medication list. REVIEW OF SYSTEMS: Negative except for above in HPI. PHYSICAL EXAMINATION: VITAL SIGNS: Temperature 97.4, pulse 84, respiratory rate 16, blood pressure 108/65, oxygen saturation 97% on 2 liters. GENERAL: Alert, oriented x 3, pleasant male in no acute distress, lying comfortably in bed on nasal O2. HEENT: Normocephalic, atraumatic, anicteric. No thrush. Oral mucosa moist. NECK: Supple, no JVD, no thyromegaly. LUNGS: Decreased breath sounds, otherwise clear. No wheezing. HEART: S1, S2 with no gallops or murmurs. ABDOMEN: Soft, bowel sounds present, nontender, nondistended. Suprapubic catheter site looks okay, intact, changed in the ER yesterday. EXTREMITIES: No edema, no cyanosis. NEUROLOGIC: Alert and oriented x 3, grossly nonfocal. PSYCHIATRIC: Cooperative, appropriate mood and affect. LABORATORY DATA: WBC 7.7, hemoglobin 13.4, hematocrit 39, platelets 217. Sodium 139, potassium 3.8, chloride 98, bicarbonate 33, BUN 15, creatinine 0.8, glucose 109. LFTs within normal limits. UA shows small leukocyte esterase, greater than 40 rbc's, 20-40 wbc's. Blood culture 04/25/2019, 1/4 bottles with gram-positive cocci in clusters. Urine culture pending at this time. Chest x-ray 04/26/2019, COPD changes. IMPRESSION: 1. Gram-positive bacteremia 04/25/2019, present on admission, 1/4 bottles of gram-positive cocci. ID and MARCELO pending,possibly contaminant. 2. Chronic obstructive pulmonary disease with acute exacerbation. 3. Chronic respiratory failure, on home O2. 4. Benign prostatic hypertrophy with suprapubic catheter in place for 1 year. last exchange done this admission in ED 5. Anxiety/depression. 6. Seizure disorder. 7. Tobaccoism. RECOMMENDATIONS: 1. Continue Rocephin. 2. We will dose one-time IV vancomycin. 3. Follow up blood cultures until final. 4. Continue supportive care. Thank you, Dr. Espana, for consulting Infectious Disease to participate in this patient's care. If you have any questions, do not hesitate to contact me. SHAE URBANO MD DR: JOSUE/edu JOB#: [id number] / [id number] MTDD
[2019-04-27 19:46] VITALS: BP 116/62
[2019-04-27] MEDS: MONTELUKAST SODIUM 10 MG TABLET. PO SCH (20:57)
[2019-04-27] MEDS: QUEtiapine 100 MG TABLET. PO SCH (20:57)
[2019-04-27] MEDS: MIRTAZAPINE 15 MG TABLET PO SCH (20:58)
[2019-04-27] MEDS: ATORVASTATIN CALCIUM 20 MG TABLET PO SCH (20:58)
[2019-04-27 23:20] VITALS: BP 101/53
[2019-04-28] MEDS: DEXAMETHASONE SOD PHOS 4 MG/ML VIAL IV SCH ×3 (00:08→17:00)
[2019-04-28 03:07] VITALS: BP 98/44
[2019-04-28 04:39] LABS: CALCIUM 8.8 mg/dL (8.5-10.1); CREATININE 0.8 mg/dL (0.7-1.3); GFR 98.6; POTASSIUM 4.2 mmol/L (3.5-5.1)
[2019-04-28] MEDS: BUDESONIDE 0.5 MG/2 ML NEBU. NEB SCH ×2 (05:53→21:07)
[2019-04-28] MEDS: IPRATRPIUM/ALBUTEROL 0.5/2.5MG 3 ML NEBU. IH SCH ×4 (05:53→21:07)
[2019-04-28] MEDS: cefTRIAXone IV Push 1 GM VIAL. IVP SCH (06:00)
[2019-04-28 07:10] VITALS: BP 104/52
--- NOTE | 2019-04-28 08:34 | PDOC ---
Infectious Disease Note Subjective: Subjective pt says feels a little better no f/c/n/v/d sob and cough are improving ROS: ROS Negative except for above. Vital Signs: Vital Signs Vital Signs Date Time Temp Pulse Resp B/P (MAP) Pulse Ox O2 Delivery O2 Flow Rate FiO2 04/28/19 07:10 98.1 82 18 104/52 (69) 95 Nasal Cannula 2.0 98.1 Physical Exam: PHYSICAL EXAM GENERAL: Alert, oriented x 3, pleasant male in no acute distress, lying comfortably in bed on nasal O2. HEENT: Normocephalic, atraumatic, anicteric. No thrush. Oral mucosa moist. NECK: Supple, no JVD, no thyromegaly. LUNGS: Decreased breath sounds, otherwise clear. No wheezing. HEART: S1, S2 with no gallops or murmurs. ABDOMEN: Soft, bowel sounds present, nontender, nondistended. Suprapubic catheter site looks okay, intact, changed in the ER yesterday. EXTREMITIES: No edema, no cyanosis. NEUROLOGIC: Alert and oriented x 3, grossly nonfocal. PSYCHIATRIC: Cooperative, appropriate mood and affect. Medications: Inpatient Meds: Current Medications Medications (Trade) Dose Ordered Sig/Lester Start Time Stop Time Status Last Admin Dose Admin Acetaminophen (Tylenol) 650 mg PRN Q4HRS PRN 04/26/19 00:00 04/26/19 23:59 DC 04/26/19 01:32 650 MG Albuterol Sulfate (Ventolin Neb Soln) 2.5 mg PRN Q6HRS PRN 04/26/19 10:30 Albuterol/ Ipratropium (Duoneb) 3 ml RTQID 04/26/19 12:00 04/28/19 05:53 3 ML Atorvastatin Calcium (Lipitor) 20 mg HS 04/26/19 21:00 04/27/19 20:58 20 MG Azithromycin 250 ml @ 250 mls/hr 1X ONCE 04/26/19 00:30 04/26/19 01:29 DC 04/26/19 01:32 250 MLS/HR Budesonide (Pulmicort) 0.5 mg RTBID 04/26/19 11:30 04/28/19 05:53 0.5 MG Buspirone HCl (Buspar) 30 mg BID 04/26/19 11:30 04/27/19 20:58 30 MG Ceftriaxone Sodium (Rocephin) 1 gm Q24H 04/27/19 06:00 04/28/19 06:00 1 GM Dexamethasone Sodium Phosphate (Decadron) 4 mg Q6HRS 04/26/19 12:00 04/28/19 06:00 4 MG Divalproex Sodium (Depakote) 500 mg BID 04/26/19 11:30 04/27/19 20:58 500 MG Duloxetine HCl (Cymbalta) 30 mg DAILY 04/26/19 11:30 04/27/19 09:35 30 MG Enoxaparin Sodium (Lovenox 40mg Syringe) 40 mg DAILY 04/26/19 11:30 04/27/19 09:32 40 MG Furosemide (Lasix) 20 mg DAILY 04/26/19 11:30 04/27/19 09:32 20 MG Guaifenesin (Mucinex) 1,200 mg BID 04/26/19 11:30 04/27/19 20:58 1,200 MG Lactobacillus Rhamnosus (Culturelle) 1 cap BID 04/26/19 21:00 04/27/19 20:58 1 CAP Levetiracetam (Keppra) 500 mg BID 04/26/19 11:30 04/27/19 20:58 500 MG Lorazepam (Ativan) 1 mg DAILY 04/26/19 11:30 04/27/19 09:34 1 MG Mirtazapine (Remeron) 15 mg QHS 04/26/19 21:00 04/27/19 20:58 15 MG Montelukast Sodium (Singulair) 10 mg QHS 04/26/19 21:00 04/27/19 20:57 10 MG Nicotine (Nicoderm Cq 21mg) 1 patch DAILY 04/26/19 11:30 04/27/19 09:31 1 PATCH Non-Formulary Medication (Budesonide/ Formoterol Fumarate (Symbicort 160-4.5 Mcg Inhaler)) 2 puff BID 04/26/19 21:00 UNV Non-Formulary Medication ([ProAir HFA] ) 90 mcg QID 04/26/19 13:00 UNV Ondansetron HCl (Zofran) 4 mg PRN Q8HRS PRN 04/26/19 00:00 04/26/19 23:59 DC 04/26/19 01:31 4 MG Oxybutynin Chloride (Ditropan) 5 mg BID 04/26/19 11:30 04/27/19 20:59 5 MG Pantoprazole Sodium (Protonix) 40 mg DAILYAC 04/26/19 11:30 04/27/19 09:36 40 MG Quetiapine Fumarate (SEROquel) 300 mg QHS 04/26/19 21:00 04/27/19 20:57 300 MG Sertraline HCl (Zoloft) 150 mg DAILY 04/26/19 11:30 04/27/19 09:35 150 MG Tamsulosin HCl (Flomax) 0.4 mg DAILY 04/26/19 11:30 04/27/19 09:35 0.4 MG Topiramate (Topamax) 50 mg BID 04/26/19 11:30 04/27/19 20:57 50 MG Vancomycin HCl 1.25 gm/Sodium Chloride 250 ml @ 166.667 mls/hr 1X ONCE 04/27/19 11:30 04/27/19 12:59 DC 04/27/19 12:22 166.667 MLS/HR Verapamil HCl (Calan) 80 mg TID 04/26/19 14:00 04/27/19 20:58 80 MG Labs: Lab Laboratory Tests Test 04/28/19 03:30 Sodium Level 130 mmol/L (136-145) Potassium Level 4.2 mmol/L (3.5-5.1) Chloride Level 96 mmol/L (98-107) Carbon Dioxide Level 27 mmol/L (21-32) Anion Gap 7 (6-14) Blood Urea Nitrogen 17 mg/dL (8-26) Creatinine 0.8 mg/dL (0.7-1.3) Estimated GFR (Cockcroft-Gault) 98.6 Glucose Level 137 mg/dL (70-99) Calcium Level 8.8 mg/dL (8.5-10.1) Objective: Assessment: GPC bacteremia 1/4 positive POA,possible contaminant final id and dino pending COPD exacerbation SPC changed this admission Plan: Plan of Care cont rocephin IV Vanc one time dose 04/27 f/u BC for id of GPC SHAE URBANO MD April 28, 2019 08:34
[2019-04-28] MEDS: NICOTINE 21MG PATCH. TD SCH (09:04)
[2019-04-28] MEDS: TAMSULOSIN 0.4 MG CAP.ER.24H. PO SCH (09:05)
[2019-04-28] MEDS: LORazepam 1 MG TABLET PO SCH (09:05)
[2019-04-28] MEDS: busPIRone 10 MG TABLET. PO SCH ×2 (09:05→21:22)
[2019-04-28] MEDS: FUROSEMIDE 20 MG TABLET PO SCH (09:05)
[2019-04-28] MEDS: ENOXAPARIN 40 MG/0.4 ML SYRINGE. SQ SCH (09:05)
[2019-04-28] MEDS: DIVALPROEX DELAYED RELEASE 500 MG TABLET.DR. PO SCH ×2 (09:05→21:23)
[2019-04-28] MEDS: SERTRALINE 50 MG TABLET. PO SCH (09:06)
[2019-04-28] MEDS: VERAPAMIL 40 MG TABLET. PO SCH ×3 (09:06→21:23)
[2019-04-28] MEDS: PANTOPRAZOLE 40 MG TABLET.DR. PO SCH (09:06)
[2019-04-28] MEDS: DULoxetine HCL 30 MG CAPSULE.DR PO SCH (09:06)
[2019-04-28] MEDS: LACTOBACILLUS RHAMNOSUS GG 1 CAPSULE. PO SCH ×2 (09:06→21:24)
[2019-04-28] MEDS: OXYBUTYNIN CHLORIDE 5 MG TABLET PO SCH ×2 (09:06→21:26)
[2019-04-28] MEDS: levETIRAcetam 500 MG TABLET PO SCH ×2 (09:06→21:24)
[2019-04-28] MEDS: TOPIRAMATE 25 MG TABLET. PO SCH ×2 (09:06→21:24)
--- NOTE | 2019-04-28 09:55 | PDOC ---
IM PROGRESS NOTES- Subjective Subjective Still has some cough and congestion. Objective Vitals Vital Signs Date Time Temp Pulse Resp B/P (MAP) Pulse Ox O2 Delivery O2 Flow Rate FiO2 04/28/19 09:06 82 104/52 04/28/19 07:10 98.1 18 95 Nasal Cannula 2.0 98.1 Input & Output Intake and Output 04/28/19 07:00 Intake Total 660 ml Output Total 3450 ml Balance -2790 ml Intake Oral 660 ml Output Urine Total 3450 ml Physical Exam Physical Exam General appearance - alert,ill appearing, and in mild distress and oriented to person, place, and time Mental Status - alert, oriented to person, place, and time, affect appropriate to mood Head - normal Chest -decreased breath sounds bilaterally with bilateral rhonchi and wheezing Heart - S1 and S2 normal Abdomen - soft, nontender, nondistended, no masses or organomegaly Neurological - alert and oriented Musculoskeletal - no muscular tenderness noted Extremities - no pedal edema Skin - warm and dry Labs Laboratory Tests Test 04/28/19 03:30 Sodium Level 130 mmol/L (136-145) Potassium Level 4.2 mmol/L (3.5-5.1) Chloride Level 96 mmol/L (98-107) Carbon Dioxide Level 27 mmol/L (21-32) Anion Gap 7 (6-14) Blood Urea Nitrogen 17 mg/dL (8-26) Creatinine 0.8 mg/dL (0.7-1.3) Estimated GFR (Cockcroft-Gault) 98.6 Glucose Level 137 mg/dL (70-99) Calcium Level 8.8 mg/dL (8.5-10.1) Laboratory Tests Test 04/28/19 03:30 Sodium Level 130 mmol/L (136-145) Potassium Level 4.2 mmol/L (3.5-5.1) Chloride Level 96 mmol/L (98-107) Carbon Dioxide Level 27 mmol/L (21-32) Anion Gap 7 (6-14) Blood Urea Nitrogen 17 mg/dL (8-26) Creatinine 0.8 mg/dL (0.7-1.3) Estimated GFR (Cockcroft-Gault) 98.6 Glucose Level 137 mg/dL (70-99) Calcium Level 8.8 mg/dL (8.5-10.1) Meds Current Medications Vancomycin HCl 1.25 gm/Sodium Chloride 250 ml @ 166.667 mls/hr 1X ONCE IV Last administered on 04/27/19at 12:22; Start 04/27/19 at 11:30; Stop 04/27/19 at 12:59; Status DC Assessment Assessment 1. Chronic obstructive pulmonary disease with acute exacerbation. 2. Acute bronchitis 3. Suprapubic catheter. 4. Anxiety. 5. Depression. 6. Seizures. 7. Smoking addiction. 8. Acute on chronic respiratory failure PLAN: I'll decrease IV Decadron to 4mg IV 2 times a day. Continue breathing treatment aerosol treatment oxygenation and IV Rocephin. He has gram-positive bacteremia 1 out of 4. This could be possibly a contaminant. ID consult has been obtained. Continue IV Rocephin. Follow up cultures. Hyponatremia- sodium is 130. Recheck tomorrow. Mild hyperglycemia. Monitor blood sugars. Blood cultures are stable or contaminant patient may be able to go home tomorrow. Plan Plan For more details regarding further plans, please refer to the orders. JEANNETTE NOEL MD April 28, 2019 09:55
[2019-04-28 10:35] VITALS: BP 111/58
[2019-04-28 15:08] VITALS: BP 92/47
--- NOTE | 2019-04-28 15:48 | NUR ---
SW following pt for anticipated dc needs. Chart reviewed. Pt lives at home with family. ID following pt. No discharge recommendation noted at this time. Addendum: 05/01/19 at 1409 by RADHA ALEJANDRO SW SW [facility].
[2019-04-28 20:53] VITALS: BP 116/58
[2019-04-28] MEDS: QUEtiapine 100 MG TABLET. PO SCH (21:23)
[2019-04-28] MEDS: ATORVASTATIN CALCIUM 20 MG TABLET PO SCH (21:23)
[2019-04-28] MEDS: SENNOSIDES 8.6 MG TABLET PO SCH (21:23)
[2019-04-28] MEDS: MONTELUKAST SODIUM 10 MG TABLET. PO SCH (21:24)
[2019-04-28] MEDS: MIRTAZAPINE 15 MG TABLET PO SCH (21:24)
[2019-04-28 23:30] VITALS: BP 100/45
[2019-04-29 02:59] LABS: BASO % 0 % (0-3); EOS % 0 % (0-3); HEMATOCRIT 35.7 % (39.0-53.0); LYMPH # 0.6 x10^3/uL (1.0-4.8); LYMPH % 5 % (24-48); MEAN CORPUSCULAR HEMOGLOBIN 33 pg (25-35); MEAN CORPUSCULAR HGB CONC 34 g/dL (31-37); MEAN CORPUSCULAR VOLUME 97 fL (79-100); MONO # 0.6 x10^3/uL (0.0-1.1); MONO % 5 % (0-9); NEUT # 10.7 x10^3uL (1.8-7.7); NEUT % 90 % (31-73); PLATELET COUNT 191 x10^3/uL (140-400); RED BLOOD COUNT 3.69 x10^6/uL (4.30-5.70); RED CELL DISTRIBUTION WIDTH 13.5 % (11.5-14.5); WHITE BLOOD COUNT 11.9 x10^3/uL (4.0-11.0)
[2019-04-29 03:10] VITALS: BP 104/52
[2019-04-29 03:25] LABS: CALCIUM 8.4 mg/dL (8.5-10.1); CREATININE 0.9 mg/dL (0.7-1.3); GFR 86.1; POTASSIUM 4.2 mmol/L (3.5-5.1)
[2019-04-29 05:00] LABS: % LYMPHS 7 % (24-48); % MONOS 2 % (0-10); % SEGS 91 % (35-66); PLT ESTIMATE ADEQUATE (ADEQUATE)
[2019-04-29] MEDS: DEXAMETHASONE SOD PHOS 4 MG/ML VIAL IV SCH ×2 (06:02→18:20)
[2019-04-29] MEDS: cefTRIAXone IV Push 1 GM VIAL. IVP SCH (06:02)
[2019-04-29 07:20] VITALS: BP 96/53
[2019-04-29] MEDS: BUDESONIDE 0.5 MG/2 ML NEBU. NEB SCH ×2 (08:22→20:35)
[2019-04-29] MEDS: IPRATRPIUM/ALBUTEROL 0.5/2.5MG 3 ML NEBU. IH SCH ×4 (08:22→20:35)
[2019-04-29] MEDS: busPIRone 10 MG TABLET. PO SCH ×2 (08:34→20:27)
[2019-04-29] MEDS: NICOTINE 21MG PATCH. TD SCH (08:34)
[2019-04-29] MEDS: SERTRALINE 50 MG TABLET. PO SCH (08:35)
[2019-04-29] MEDS: DIVALPROEX DELAYED RELEASE 500 MG TABLET.DR. PO SCH ×2 (08:36→20:28)
[2019-04-29] MEDS: LORazepam 1 MG TABLET PO SCH (08:36)
[2019-04-29] MEDS: TOPIRAMATE 25 MG TABLET. PO SCH ×2 (08:36→20:29)
[2019-04-29] MEDS: LACTOBACILLUS RHAMNOSUS GG 1 CAPSULE. PO SCH ×2 (08:36→20:28)
[2019-04-29] MEDS: SENNOSIDES 8.6 MG TABLET PO SCH ×2 (08:37→20:28)
[2019-04-29] MEDS: PANTOPRAZOLE 40 MG TABLET.DR. PO SCH (08:37)
[2019-04-29] MEDS: ENOXAPARIN 40 MG/0.4 ML SYRINGE. SQ SCH (08:37)
[2019-04-29] MEDS: DULoxetine HCL 30 MG CAPSULE.DR PO SCH (08:37)
[2019-04-29] MEDS: levETIRAcetam 500 MG TABLET PO SCH ×2 (08:37→20:29)
[2019-04-29] MEDS: TAMSULOSIN 0.4 MG CAP.ER.24H. PO SCH (08:37)
[2019-04-29] MEDS: OXYBUTYNIN CHLORIDE 5 MG TABLET PO SCH ×2 (08:38→20:28)
[2019-04-29] MEDS: FUROSEMIDE 20 MG TABLET PO SCH (09:00)
[2019-04-29] MEDS: VERAPAMIL 40 MG TABLET. PO SCH ×3 (09:00→20:26)
--- NOTE | 2019-04-29 10:03 | SNU/HH DC ---
DISCHARGE WITH HOME HEALTH DISCHARGE INFORMATION: Final Diagnosis: Problems Medical Problems: (1) COPD exacerbation Status: Acute (2) Urinary retention Status: Acute (3) Urinary tract infection Status: Acute Condition on Discharge: Stable HOME HEALTH: Face to Face: I certify this patient is under my care and that I, or a nurse practitioner or physician's supply chain assistant working with me, had a face to face encounter that meets the physician face to face encounter requirements with this patient on 04/29/19. RN For Eval/Treatment: Yes Pt Meets Homebound Status: Fatigue w/ amb. POST DISCHARGE ORDERS: Activity Instructions for Disc: Activity as tolerated Weight Bearing Status after Di: As tolerated DIET AFTER DISCHARGE: Cardiac Wound/Incision Care: No wound care needed FOLLOW-UP: PCP to follow Home Health: yes Follow up with: Dr. JEANNETTE Espana in 5 days TREATMENT/EQUIPMENT ORDERS: Adaptive Equipment Issued: None Discharge Respiratory Equipmen: Oxygen (2 lit/min) CERTIFICATION STATEMENT: Certification Statement: Certification Statement: Based on the above finding, I certify that this patient is confined to the home and needs intermittent long-term care, physical therapy and/or speech therapy, or continues to need occupational therapy.~ This patient is under my care, and I have initiated the establishment of the plan of care.~ This patient will be followed by myself or a community physician who will periodically review the plan of care. Home Meds Active Scripts Prednisone (PREDNISONE) 50 Mg Tablet, 1 TAB PO DAILY for copd, #5 TAB Prov:ONEL SOMERS MD 03/06/19 Azithromycin (AZITHROMYCIN TABLET) 250 Mg Tablet, 250 MG PO DAILY for copd for 4 Days, #4 TAB Prov:ONEL SOMERS MD 03/06/19 Albuterol Sulfate (ALBUTEROL SULFATE NEB SOLN) 1.25 Mg/3 Ml Vial.neb, 1 VIAL NEB Q6HRS, #150 ML Prov:VERA TO APRN 02/15/19 Nicotine (NICODERM CQ 21mg) 1 Each Patch.td24, 1 PATCH TP DAILY, #28 PATCH 1 Refill Prov:STEVE MARTIN APRN 10/14/17 Guaifenesin (MUCINEX) 600 Mg Tablet.er, 1200 MG PO BID, #30 TAB.SR Prov:STEVE MARTIN APRN 10/12/17 Tamsulosin Hcl (FLOMAX) 0.4 Mg Cap.er.24h, 1 CAP PO DAILY, #30 CAP 0 Refills Prov:MARK CHAPIN MD 07/26/17 Ipratropium/Albuterol Sulfate (DUONEB 0.5-3(2.5) MG/3 ML) 3 Ml Ampul.neb, 3 ML IH QID, #120 EA Prov:JANEMemeLETICIASTEVE Stanislaw CHRISTINA 09/16/15 Reported Medications Mirtazapine (MIRTAZAPINE) 15 Mg Tablet, 1 TAB PO DAILY for Depression 03/05/19 Duloxetine Hcl (DULOXETINE HCL) 30 Mg Capsule.dr, 1 CAP PO DAILY for Depression 03/05/19 Quetiapine Fumarate (QUETIAPINE FUMARATE) 300 Mg Tablet, 1 TAB PO DAILY for depression 03/05/19 Divalproex Sodium (DIVALPROEX SODIUM) 500 Mg Tablet.dr, 1 TAB PO BID for seizures 03/05/19 Levetiracetam (LEVETIRACETAM) 500 Mg Tablet, 1 TAB PO BID for Seizures 03/05/19 Oxybutynin Chloride (OXYBUTYNIN CHLORIDE ER) 10 Mg Tab.er.24, 1 TAB PO DAILY for Bladder 03/05/19 Lorazepam (LORAZEPAM) 1 Mg Tablet, 1 TAB PO DAILY for Anxiety 03/05/19 Furosemide (FUROSEMIDE) 20 Mg Tablet, 1 TAB PO DAILY for Diuresis 03/05/19 Atorvastatin Calcium (ATORVASTATIN CALCIUM) 20 Mg Tablet, 20 MG PO HS for FOR CHOLESTEROL, #30 TAB 0 Refills 03/21/17 [ProAir HFA] No Conflict Check, 90 MCG IH QID 03/21/17 [verapamil 80mg TID] No Conflict Check, 80 MG PO TID 03/21/17 Pantoprazole Sodium (PROTONIX) 40 Mg Tablet.dr, 1 TAB PO DAILY, #30 TAB 5 Refills 03/21/17 Sertraline Hcl (ZOLOFT) 100 Mg Tablet, 1.5 TAB PO DAILY, #30 TAB 5 Refills 03/21/17 Topiramate (TOPIRAMATE) 50 Mg Tablet, 1 TAB PO BID, #60 TAB 1 Refill 09/15/15 Budesonide/Formoterol Fumarate (SYMBICORT 160-4.5 MCG INHALER) 10.2 Gm Hfa.aer.ad, 2 PUFF IH BID, #10.6 GM 3 Refills 09/15/15 Montelukast Sodium (SINGULAIR TABLET) 10 Mg Tablet, 10 MG PO HS for FOR ASTHMA, #30 TAB 0 Refills 09/15/15 Buspirone Hcl (BUSPIRONE HCL) 30 Mg Tablet, 1 TAB PO BID, #60 TAB 09/15/15 JEANNETTE ESPANA MD April 29, 2019 10:03
--- NOTE | 2019-04-29 10:09 | PDOC ---
Infectious Disease Note Subjective: Subjective pt says feels better no f/c/n/v/d sob and cough are improving ROS: ROS Negative except for above. Vital Signs: Vital Signs Vital Signs Date Time Temp Pulse Resp B/P (MAP) Pulse Ox O2 Delivery O2 Flow Rate FiO2 04/29/19 08:20 97 Nasal Cannula 2.0 04/29/19 07:20 97.5 68 20 96/53 (67) 97.5 Physical Exam: PHYSICAL EXAM GENERAL: Alert, oriented x 3, pleasant male in no acute distress, lying comfortably in bed on nasal O2. HEENT: Normocephalic, atraumatic, anicteric. No thrush. Oral mucosa moist. NECK: Supple, no JVD, no thyromegaly. LUNGS: Decreased breath sounds, otherwise clear. No wheezing. HEART: S1, S2 with no gallops or murmurs. ABDOMEN: Soft, bowel sounds present, nontender, nondistended. Suprapubic catheter site looks okay, intact, changed in the ER yesterday. EXTREMITIES: No edema, no cyanosis. NEUROLOGIC: Alert and oriented x 3, grossly nonfocal. PSYCHIATRIC: Cooperative, appropriate mood and affect. Medications: Inpatient Meds: Current Medications Medications (Trade) Dose Ordered Sig/Lester Start Time Stop Time Status Last Admin Dose Admin Acetaminophen (Tylenol) 650 mg PRN Q4HRS PRN 04/26/19 00:00 04/26/19 23:59 DC 04/26/19 01:32 650 MG Albuterol Sulfate (Ventolin Neb Soln) 2.5 mg PRN Q6HRS PRN 04/26/19 10:30 Albuterol/ Ipratropium (Duoneb) 3 ml RTQID 04/26/19 12:00 04/29/19 08:22 3 ML Atorvastatin Calcium (Lipitor) 20 mg HS 04/26/19 21:00 04/28/19 21:23 20 MG Azithromycin 250 ml @ 250 mls/hr 1X ONCE 04/26/19 00:30 04/26/19 01:29 DC 04/26/19 01:32 250 MLS/HR Budesonide (Pulmicort) 0.5 mg RTBID 04/26/19 11:30 04/29/19 08:22 0.5 MG Buspirone HCl (Buspar) 30 mg BID 04/26/19 11:30 04/29/19 08:34 30 MG Ceftriaxone Sodium (Rocephin) 1 gm Q24H 04/27/19 06:00 04/29/19 06:02 1 GM Dexamethasone Sodium Phosphate (Decadron) 4 mg [id number] 04/28/19 18:00 04/29/19 06:02 4 MG Divalproex Sodium (Depakote) 500 mg BID 04/26/19 11:30 04/29/19 08:36 500 MG Duloxetine HCl (Cymbalta) 30 mg DAILY 04/26/19 11:30 04/29/19 08:37 30 MG Enoxaparin Sodium (Lovenox 40mg Syringe) 40 mg DAILY 04/26/19 11:30 04/29/19 08:37 40 MG Furosemide (Lasix) 20 mg DAILY 04/26/19 11:30 04/28/19 09:05 20 MG Guaifenesin (Mucinex) 1,200 mg BID 04/26/19 11:30 04/29/19 08:38 1,200 MG Lactobacillus Rhamnosus (Culturelle) 1 cap BID 04/26/19 21:00 04/29/19 08:36 1 CAP Levetiracetam (Keppra) 500 mg BID 04/26/19 11:30 04/29/19 08:37 500 MG Lorazepam (Ativan) 1 mg DAILY 04/26/19 11:30 04/29/19 08:36 1 MG Mirtazapine (Remeron) 15 mg QHS 04/26/19 21:00 04/28/19 21:24 15 MG Montelukast Sodium (Singulair) 10 mg QHS 04/26/19 21:00 04/28/19 21:24 10 MG Nicotine (Nicoderm Cq 21mg) 1 patch DAILY 04/26/19 11:30 04/29/19 08:34 1 PATCH Non-Formulary Medication (Budesonide/ Formoterol Fumarate (Symbicort 160-4.5 Mcg Inhaler)) 2 puff BID 04/26/19 21:00 UNV Non-Formulary Medication ([ProAir HFA] ) 90 mcg QID 04/26/19 13:00 UNV Ondansetron HCl (Zofran) 4 mg PRN Q8HRS PRN 04/26/19 00:00 04/26/19 23:59 DC 04/26/19 01:31 4 MG Oxybutynin Chloride (Ditropan) 5 mg BID 04/26/19 11:30 04/29/19 08:38 5 MG Pantoprazole Sodium (Protonix) 40 mg DAILYAC 04/26/19 11:30 04/29/19 08:37 40 MG Quetiapine Fumarate (SEROquel) 300 mg QHS 04/26/19 21:00 04/28/19 21:23 300 MG Sennosides (Senna) 8.6 mg BID 04/28/19 21:00 04/29/19 08:37 8.6 MG Sertraline HCl (Zoloft) 150 mg DAILY 04/26/19 11:30 04/29/19 08:35 150 MG Tamsulosin HCl (Flomax) 0.4 mg DAILY 04/26/19 11:30 04/29/19 08:37 0.4 MG Topiramate (Topamax) 50 mg BID 04/26/19 11:30 04/29/19 08:36 50 MG Vancomycin HCl 1.25 gm/Sodium Chloride 250 ml @ 166.667 mls/hr 1X ONCE 04/27/19 11:30 04/27/19 12:59 DC 04/27/19 12:22 166.667 MLS/HR Verapamil HCl (Calan) 80 mg TID 04/26/19 14:00 04/28/19 21:23 80 MG Labs: Lab Laboratory Tests Test 04/28/19 12:15 04/28/19 16:44 04/28/19 21:31 04/29/19 02:40 Glucose (Fingerstick) 135 mg/dL (70-99) 116 mg/dL (70-99) 120 mg/dL (70-99) White Blood Count 11.9 x10^3/uL (4.0-11.0) Red Blood Count 3.69 x10^6/uL (4.30-5.70) Hemoglobin 12.0 g/dL (13.0-17.5) Hematocrit 35.7 % (39.0-53.0) Mean Corpuscular Volume 97 fL (79-100) Mean Corpuscular Hemoglobin 33 pg (25-35) Mean Corpuscular Hemoglobin Concent 34 g/dL (31-37) Red Cell Distribution Width 13.5 % (11.5-14.5) Platelet Count 191 x10^3/uL (140-400) Neutrophils (%) (Auto) 90 % (31-73) Lymphocytes (%) (Auto) 5 % (24-48) Monocytes (%) (Auto) 5 % (0-9) Eosinophils (%) (Auto) 0 % (0-3) Basophils (%) (Auto) 0 % (0-3) Neutrophils # (Auto) 10.7 x10^3uL (1.8-7.7) Lymphocytes # (Auto) 0.6 x10^3/uL (1.0-4.8) Monocytes # (Auto) 0.6 x10^3/uL (0.0-1.1) Eosinophils # (Auto) 0.0 x10^3/uL (0.0-0.7) Basophils # (Auto) 0.0 x10^3/uL (0.0-0.2) Segmented Neutrophils % 91 % (35-66) Lymphocytes % 7 % (24-48) Monocytes % 2 % (0-10) Platelet Estimate Adequate (ADEQUATE) Sodium Level 128 mmol/L (136-145) Potassium Level 4.2 mmol/L (3.5-5.1) Chloride Level 94 mmol/L (98-107) Carbon Dioxide Level 26 mmol/L (21-32) Anion Gap 8 (6-14) Blood Urea Nitrogen 21 mg/dL (8-26) Creatinine 0.9 mg/dL (0.7-1.3) Estimated GFR (Cockcroft-Gault) 86.1 Glucose Level 124 mg/dL (70-99) Calcium Level 8.4 mg/dL (8.5-10.1) Test 04/29/19 07:24 Glucose (Fingerstick) 99 mg/dL (70-99) Objective: Assessment: GPC bacteremia 1/4 positive POA,possible contaminant final id and dino still pending COPD exacerbation SPC changed this admission Plan: Plan of Care cont rocephin IV Vanc one time dose 04/27 f/u BC for IDof GPC SHAE URBANO MD April 29, 2019 10:09
--- NOTE | 2019-04-29 10:33 | PDOC ---
IM PROGRESS NOTES- Subjective Subjective Still has some cough and congestion. Objective Vitals Vital Signs Date Time Temp Pulse Resp B/P (MAP) Pulse Ox O2 Delivery O2 Flow Rate FiO2 04/29/19 08:20 97 Nasal Cannula 2.0 04/29/19 07:20 97.5 68 20 96/53 (67) 97.5 Input & Output Intake and Output 04/29/19 07:00 Intake Total 1840 ml Output Total 2000 ml Balance -160 ml Intake Oral 1840 ml Output Urine Total 2000 ml Physical Exam Physical Exam General appearance - alert,ill appearing, and in mild distress and oriented to person, place, and time Mental Status - alert, oriented to person, place, and time, affect appropriate to mood Head - normal Chest -decreased breath sounds bilaterally with bilateral rhonchi and wheezing Heart - S1 and S2 normal Abdomen - soft, nontender, nondistended, no masses or organomegaly Neurological - alert and oriented Musculoskeletal - no muscular tenderness noted Extremities - no pedal edema Skin - warm and dry Labs Laboratory Tests Test 04/28/19 03:30 04/28/19 12:15 04/28/19 16:44 04/28/19 21:31 Sodium Level 130 mmol/L (136-145) Potassium Level 4.2 mmol/L (3.5-5.1) Chloride Level 96 mmol/L (98-107) Carbon Dioxide Level 27 mmol/L (21-32) Anion Gap 7 (6-14) Blood Urea Nitrogen 17 mg/dL (8-26) Creatinine 0.8 mg/dL (0.7-1.3) Estimated GFR (Cockcroft-Gault) 98.6 Glucose Level 137 mg/dL (70-99) Calcium Level 8.8 mg/dL (8.5-10.1) Glucose (Fingerstick) 135 mg/dL (70-99) 116 mg/dL (70-99) 120 mg/dL (70-99) Test 04/29/19 02:40 04/29/19 07:24 White Blood Count 11.9 x10^3/uL (4.0-11.0) Red Blood Count 3.69 x10^6/uL (4.30-5.70) Hemoglobin 12.0 g/dL (13.0-17.5) Hematocrit 35.7 % (39.0-53.0) Mean Corpuscular Volume 97 fL (79-100) Mean Corpuscular Hemoglobin 33 pg (25-35) Mean Corpuscular Hemoglobin Concent 34 g/dL (31-37) Red Cell Distribution Width 13.5 % (11.5-14.5) Platelet Count 191 x10^3/uL (140-400) Neutrophils (%) (Auto) 90 % (31-73) Lymphocytes (%) (Auto) 5 % (24-48) Monocytes (%) (Auto) 5 % (0-9) Eosinophils (%) (Auto) 0 % (0-3) Basophils (%) (Auto) 0 % (0-3) Neutrophils # (Auto) 10.7 x10^3uL (1.8-7.7) Lymphocytes # (Auto) 0.6 x10^3/uL (1.0-4.8) Monocytes # (Auto) 0.6 x10^3/uL (0.0-1.1) Eosinophils # (Auto) 0.0 x10^3/uL (0.0-0.7) Basophils # (Auto) 0.0 x10^3/uL (0.0-0.2) Segmented Neutrophils % 91 % (35-66) Lymphocytes % 7 % (24-48) Monocytes % 2 % (0-10) Platelet Estimate Adequate (ADEQUATE) Sodium Level 128 mmol/L (136-145) Potassium Level 4.2 mmol/L (3.5-5.1) Chloride Level 94 mmol/L (98-107) Carbon Dioxide Level 26 mmol/L (21-32) Anion Gap 8 (6-14) Blood Urea Nitrogen 21 mg/dL (8-26) Creatinine 0.9 mg/dL (0.7-1.3) Estimated GFR (Cockcroft-Gault) 86.1 Glucose Level 124 mg/dL (70-99) Calcium Level 8.4 mg/dL (8.5-10.1) Glucose (Fingerstick) 99 mg/dL (70-99) Laboratory Tests Test 04/28/19 12:15 04/28/19 16:44 04/28/19 21:31 04/29/19 02:40 Glucose (Fingerstick) 135 mg/dL (70-99) 116 mg/dL (70-99) 120 mg/dL (70-99) White Blood Count 11.9 x10^3/uL (4.0-11.0) Red Blood Count 3.69 x10^6/uL (4.30-5.70) Hemoglobin 12.0 g/dL (13.0-17.5) Hematocrit 35.7 % (39.0-53.0) Mean Corpuscular Volume 97 fL (79-100) Mean Corpuscular Hemoglobin 33 pg (25-35) Mean Corpuscular Hemoglobin Concent 34 g/dL (31-37) Red Cell Distribution Width 13.5 % (11.5-14.5) Platelet Count 191 x10^3/uL (140-400) Neutrophils (%) (Auto) 90 % (31-73) Lymphocytes (%) (Auto) 5 % (24-48) Monocytes (%) (Auto) 5 % (0-9) Eosinophils (%) (Auto) 0 % (0-3) Basophils (%) (Auto) 0 % (0-3) Neutrophils # (Auto) 10.7 x10^3uL (1.8-7.7) Lymphocytes # (Auto) 0.6 x10^3/uL (1.0-4.8) Monocytes # (Auto) 0.6 x10^3/uL (0.0-1.1) Eosinophils # (Auto) 0.0 x10^3/uL (0.0-0.7) Basophils # (Auto) 0.0 x10^3/uL (0.0-0.2) Segmented Neutrophils % 91 % (35-66) Lymphocytes % 7 % (24-48) Monocytes % 2 % (0-10) Platelet Estimate Adequate (ADEQUATE) Sodium Level 128 mmol/L (136-145) Potassium Level 4.2 mmol/L (3.5-5.1) Chloride Level 94 mmol/L (98-107) Carbon Dioxide Level 26 mmol/L (21-32) Anion Gap 8 (6-14) Blood Urea Nitrogen 21 mg/dL (8-26) Creatinine 0.9 mg/dL (0.7-1.3) Estimated GFR (Cockcroft-Gault) 86.1 Glucose Level 124 mg/dL (70-99) Calcium Level 8.4 mg/dL (8.5-10.1) Test 04/29/19 07:24 Glucose (Fingerstick) 99 mg/dL (70-99) Meds Current Medications Dexamethasone Sodium Phosphate (Decadron) 4 mg [id number] IV Last administered on 04/29/19at 06:02; Start 04/28/19 at 18:00 Sennosides (Senna) 8.6 mg BID PO Last administered on 04/29/19at 08:37; Start 04/28/19 at 21:00 Assessment Assessment 1. Chronic obstructive pulmonary disease with acute exacerbation. 2. Acute bronchitis 3. Suprapubic catheter. 4. Anxiety. 5. Depression. 6. Seizures. 7. Smoking addiction. 8. Acute on chronic respiratory failure PLAN: I'll decrease IV Decadron to 4mg IV 2 times a day. Continue breathing treatment aerosol treatment oxygenation and IV Rocephin. He has gram-positive bacteremia 1 out of 4. This could be possibly a contaminant. ID consult has been obtained. Continue IV Rocephin. Follow up cultures. Hyponatremia- sodium is 130. Recheck tomorrow. Mild hyperglycemia. Monitor blood sugars. Blood cultures still pending.D/w .Can not discharge till c/s available. Plan Plan For more details regarding further plans, please refer to the orders. JEANNETTE NOEL MD April 29, 2019 10:33
[2019-04-29 10:50] VITALS: BP 101/54
[2019-04-29 15:16] VITALS: BP 119/60
[2019-04-29 19:00] VITALS: BP 117/60
[2019-04-29] MEDS: QUEtiapine 100 MG TABLET. PO SCH (20:27)
[2019-04-29] MEDS: MONTELUKAST SODIUM 10 MG TABLET. PO SCH (20:28)
[2019-04-29] MEDS: MIRTAZAPINE 15 MG TABLET PO SCH (20:29)
[2019-04-29] MEDS: ATORVASTATIN CALCIUM 20 MG TABLET PO SCH (20:29)
[2019-04-29 23:00] VITALS: BP 114/54
[2019-04-30 03:00] VITALS: BP 115/66
[2019-04-30] MEDS: cefTRIAXone IV Push 1 GM VIAL. IVP SCH (05:43)
[2019-04-30] MEDS: DEXAMETHASONE SOD PHOS 4 MG/ML VIAL IV SCH (05:44)
[2019-04-30 07:10] VITALS: BP 129/42
[2019-04-30] MEDS: BUDESONIDE 0.5 MG/2 ML NEBU. NEB SCH ×2 (07:30→19:32)
[2019-04-30] MEDS: IPRATRPIUM/ALBUTEROL 0.5/2.5MG 3 ML NEBU. IH SCH ×4 (07:30→19:32)
[2019-04-30] MEDS: ENOXAPARIN 40 MG/0.4 ML SYRINGE. SQ SCH (08:09)
[2019-04-30] MEDS: LORazepam 1 MG TABLET PO SCH (08:09)
[2019-04-30] MEDS: TOPIRAMATE 25 MG TABLET. PO SCH ×2 (08:10→20:51)
[2019-04-30] MEDS: levETIRAcetam 500 MG TABLET PO SCH ×2 (08:10→20:51)
[2019-04-30] MEDS: SENNOSIDES 8.6 MG TABLET PO SCH ×2 (08:11→20:51)
[2019-04-30] MEDS: LACTOBACILLUS RHAMNOSUS GG 1 CAPSULE. PO SCH ×2 (08:11→20:51)
[2019-04-30] MEDS: DULoxetine HCL 30 MG CAPSULE.DR PO SCH (08:12)
[2019-04-30] MEDS: DIVALPROEX DELAYED RELEASE 500 MG TABLET.DR. PO SCH ×2 (08:12→20:50)
[2019-04-30] MEDS: OXYBUTYNIN CHLORIDE 5 MG TABLET PO SCH ×2 (08:12→20:51)
[2019-04-30] MEDS: VERAPAMIL 40 MG TABLET. PO SCH ×3 (08:13→20:50)
[2019-04-30] MEDS: TAMSULOSIN 0.4 MG CAP.ER.24H. PO SCH (08:14)
[2019-04-30] MEDS: SERTRALINE 50 MG TABLET. PO SCH (08:14)
[2019-04-30] MEDS: NICOTINE 21MG PATCH. TD SCH (08:15)
[2019-04-30] MEDS: busPIRone 10 MG TABLET. PO SCH ×2 (08:15→20:50)
[2019-04-30] MEDS: PANTOPRAZOLE 40 MG TABLET.DR. PO SCH (08:15)
[2019-04-30] MEDS: FUROSEMIDE 20 MG TABLET PO SCH (08:15)
--- NOTE | 2019-04-30 10:37 | PDOC ---
IM PROGRESS NOTES- Subjective Subjective Still has some cough and congestion. Objective Vitals Vital Signs Date Time Temp Pulse Resp B/P (MAP) Pulse Ox O2 Delivery O2 Flow Rate FiO2 04/30/19 08:13 71 129/42 04/30/19 08:00 Nasal Cannula 2.0 04/30/19 07:32 97 04/30/19 07:10 97.5 20 97.5 Input & Output Intake and Output 04/30/19 07:00 Intake Total 3640 ml Output Total 3550 ml Balance 90 ml Intake Oral 3640 ml Output Urine Total 3550 ml Physical Exam Physical Exam General appearance - alert,ill appearing, and in mild distress and oriented to person, place, and time Mental Status - alert, oriented to person, place, and time, affect appropriate to mood Head - normal Chest -decreased breath sounds bilaterally with bilateral rhonchi and wheezing Heart - S1 and S2 normal Abdomen - soft, nontender, nondistended, no masses or organomegaly Neurological - alert and oriented Musculoskeletal - no muscular tenderness noted Extremities - no pedal edema Skin - warm and dry Labs Laboratory Tests Test 04/28/19 12:15 04/28/19 16:44 04/28/19 21:31 04/29/19 02:40 Glucose (Fingerstick) 135 mg/dL (70-99) 116 mg/dL (70-99) 120 mg/dL (70-99) White Blood Count 11.9 x10^3/uL (4.0-11.0) Red Blood Count 3.69 x10^6/uL (4.30-5.70) Hemoglobin 12.0 g/dL (13.0-17.5) Hematocrit 35.7 % (39.0-53.0) Mean Corpuscular Volume 97 fL (79-100) Mean Corpuscular Hemoglobin 33 pg (25-35) Mean Corpuscular Hemoglobin Concent 34 g/dL (31-37) Red Cell Distribution Width 13.5 % (11.5-14.5) Platelet Count 191 x10^3/uL (140-400) Neutrophils (%) (Auto) 90 % (31-73) Lymphocytes (%) (Auto) 5 % (24-48) Monocytes (%) (Auto) 5 % (0-9) Eosinophils (%) (Auto) 0 % (0-3) Basophils (%) (Auto) 0 % (0-3) Neutrophils # (Auto) 10.7 x10^3uL (1.8-7.7) Lymphocytes # (Auto) 0.6 x10^3/uL (1.0-4.8) Monocytes # (Auto) 0.6 x10^3/uL (0.0-1.1) Eosinophils # (Auto) 0.0 x10^3/uL (0.0-0.7) Basophils # (Auto) 0.0 x10^3/uL (0.0-0.2) Segmented Neutrophils % 91 % (35-66) Lymphocytes % 7 % (24-48) Monocytes % 2 % (0-10) Platelet Estimate Adequate (ADEQUATE) Sodium Level 128 mmol/L (136-145) Potassium Level 4.2 mmol/L (3.5-5.1) Chloride Level 94 mmol/L (98-107) Carbon Dioxide Level 26 mmol/L (21-32) Anion Gap 8 (6-14) Blood Urea Nitrogen 21 mg/dL (8-26) Creatinine 0.9 mg/dL (0.7-1.3) Estimated GFR (Cockcroft-Gault) 86.1 Glucose Level 124 mg/dL (70-99) Calcium Level 8.4 mg/dL (8.5-10.1) Test 04/29/19 07:24 04/29/19 11:33 04/29/19 17:23 04/29/19 21:20 Glucose (Fingerstick) 99 mg/dL (70-99) 128 mg/dL (70-99) 141 mg/dL (70-99) 113 mg/dL (70-99) Test 04/30/19 07:24 Glucose (Fingerstick) 89 mg/dL (70-99) Laboratory Tests Test 04/29/19 11:33 04/29/19 17:23 04/29/19 21:20 04/30/19 07:24 Glucose (Fingerstick) 128 mg/dL (70-99) 141 mg/dL (70-99) 113 mg/dL (70-99) 89 mg/dL (70-99) Assessment Assessment 1. Chronic obstructive pulmonary disease with acute exacerbation. 2. Acute bronchitis 3. Suprapubic catheter. 4. Anxiety. 5. Depression. 6. Seizures. 7. Smoking addiction. 8. Acute on chronic respiratory failure PLAN: I'll decrease IV Decadron to 4mg IV 2 times a day. Continue breathing treatment aerosol treatment oxygenation and IV Rocephin. He has gram-positive bacteremia 1 out of 4. This could be possibly a contaminant. ID consult has been obtained. Continue IV Rocephin. Follow up cultures. Hyponatremia- sodium is 130. Recheck tomorrow. Mild hyperglycemia. Monitor blood sugars. Blood cultures still pending.Can not discharge till c/s available. Urine c/s Serratia marascens - 50 to 100k resistant to cephalosporins. decrease Decadron. Plan Plan For more details regarding further plans, please refer to the orders. JEANNETTE NOEL MD April 30, 2019 10:37
--- NOTE | 2019-04-30 10:54 | PDOC ---
Infectious Disease Note Subjective: Subjective pt says feels better no f/c/n/v/d sob and cough are improving pt is eager for dc home today ROS: ROS Negative except for above. Vital Signs: Vital Signs Vital Signs Date Time Temp Pulse Resp B/P (MAP) Pulse Ox O2 Delivery O2 Flow Rate FiO2 04/30/19 08:13 71 129/42 04/30/19 08:00 Nasal Cannula 2.0 04/30/19 07:32 97 04/30/19 07:10 97.5 20 97.5 Physical Exam: PHYSICAL EXAM GENERAL: Alert, oriented x 3, pleasant male in no acute distress, lying comfortably in bed on nasal O2. HEENT: Normocephalic, atraumatic, anicteric. No thrush. Oral mucosa moist. NECK: Supple, no JVD, no thyromegaly. LUNGS: Decreased breath sounds, otherwise clear. No wheezing. HEART: S1, S2 with no gallops or murmurs. ABDOMEN: Soft, bowel sounds present, nontender, nondistended. Suprapubic catheter site looks okay, intact, changed in the ER yesterday. EXTREMITIES: No edema, no cyanosis. NEUROLOGIC: Alert and oriented x 3, grossly nonfocal. PSYCHIATRIC: Cooperative, appropriate mood and affect. Medications: Inpatient Meds: Current Medications Medications (Trade) Dose Ordered Sig/Lester Start Time Stop Time Status Last Admin Dose Admin Acetaminophen (Tylenol) 650 mg PRN Q4HRS PRN 04/26/19 00:00 04/26/19 23:59 DC 04/26/19 01:32 650 MG Albuterol Sulfate (Ventolin Neb Soln) 2.5 mg PRN Q6HRS PRN 04/26/19 10:30 Albuterol/ Ipratropium (Duoneb) 3 ml RTQID 04/26/19 12:00 04/30/19 07:30 3 ML Atorvastatin Calcium (Lipitor) 20 mg HS 04/26/19 21:00 04/29/19 20:29 20 MG Azithromycin 250 ml @ 250 mls/hr 1X ONCE 04/26/19 00:30 04/26/19 01:29 DC 04/26/19 01:32 250 MLS/HR Budesonide (Pulmicort) 0.5 mg RTBID 04/26/19 11:30 04/30/19 07:30 0.5 MG Buspirone HCl (Buspar) 30 mg BID 04/26/19 11:30 04/30/19 08:15 30 MG Ceftriaxone Sodium (Rocephin) 1 gm Q24H 04/27/19 06:00 04/30/19 05:43 1 GM Dexamethasone Sodium Phosphate (Decadron) 4 mg DAILY10 05/01/19 10:00 Divalproex Sodium (Depakote) 500 mg BID 04/26/19 11:30 04/30/19 08:12 500 MG Duloxetine HCl (Cymbalta) 30 mg DAILY 04/26/19 11:30 04/30/19 08:12 30 MG Enoxaparin Sodium (Lovenox 40mg Syringe) 40 mg DAILY 04/26/19 11:30 04/30/19 08:09 40 MG Furosemide (Lasix) 20 mg DAILY 04/26/19 11:30 04/30/19 08:15 20 MG Guaifenesin (Mucinex) 1,200 mg BID 04/26/19 11:30 04/30/19 08:11 1,200 MG Lactobacillus Rhamnosus (Culturelle) 1 cap BID 04/26/19 21:00 04/30/19 08:11 1 CAP Levetiracetam (Keppra) 500 mg BID 04/26/19 11:30 04/30/19 08:10 500 MG Lorazepam (Ativan) 1 mg DAILY 04/26/19 11:30 04/30/19 08:09 1 MG Mirtazapine (Remeron) 15 mg QHS 04/26/19 21:00 04/29/19 20:29 15 MG Montelukast Sodium (Singulair) 10 mg QHS 04/26/19 21:00 04/29/19 20:28 10 MG Nicotine (Nicoderm Cq 21mg) 1 patch DAILY 04/26/19 11:30 04/30/19 08:15 1 PATCH Non-Formulary Medication (Budesonide/ Formoterol Fumarate (Symbicort 160-4.5 Mcg Inhaler)) 2 puff BID 04/26/19 21:00 UNV Non-Formulary Medication ([ProAir HFA] ) 90 mcg QID 04/26/19 13:00 UNV Ondansetron HCl (Zofran) 4 mg PRN Q8HRS PRN 04/26/19 00:00 04/26/19 23:59 DC 04/26/19 01:31 4 MG Oxybutynin Chloride (Ditropan) 5 mg BID 04/26/19 11:30 04/30/19 08:12 5 MG Pantoprazole Sodium (Protonix) 40 mg DAILYAC 04/26/19 11:30 04/30/19 08:15 40 MG Quetiapine Fumarate (SEROquel) 300 mg QHS 04/26/19 21:00 04/29/19 20:27 300 MG Sennosides (Senna) 8.6 mg BID 04/28/19 21:00 04/30/19 08:11 8.6 MG Sertraline HCl (Zoloft) 150 mg DAILY 04/26/19 11:30 04/30/19 08:14 150 MG Tamsulosin HCl (Flomax) 0.4 mg DAILY 04/26/19 11:30 04/30/19 08:14 0.4 MG Topiramate (Topamax) 50 mg BID 04/26/19 11:30 04/30/19 08:10 50 MG Vancomycin HCl 1.25 gm/Sodium Chloride 250 ml @ 166.667 mls/hr 1X ONCE 04/27/19 11:30 04/27/19 12:59 DC 04/27/19 12:22 166.667 MLS/HR Verapamil HCl (Calan) 80 mg TID 04/26/19 14:00 04/30/19 08:13 80 MG Labs: Lab Laboratory Tests Test 04/29/19 11:33 04/29/19 17:23 04/29/19 21:20 04/30/19 07:24 Glucose (Fingerstick) 128 mg/dL (70-99) 141 mg/dL (70-99) 113 mg/dL (70-99) 89 mg/dL (70-99) Objective: Assessment: GPC bacteremia 1/4 positive POA,possible contaminant final id and dino still pending I discussed with the micro-lab ID of GPC in [place] may be available later this afternoon COPD exacerbation Urinary retention UC 50-100K serratia,likely colonization as he is improving without directed therapy SPC changed this admission Plan: Plan of Care Cont rocephin for now IV Vanc one time dose 04/27 f/u [facility] for ID of GPC Will modify treatment depending on identification of GPC on blood cultures for discharge plan SHAE URBANO MD April 30, 2019 10:54
[2019-04-30 11:10] VITALS: BP 95/50
--- NOTE | 2019-04-30 11:42 | PDOC2 ---
CONSULT Date of Consult Date of Consult DATE: 04/30/19 TIME: 11:35 Reason for Consult Reason for Consult: LOW NA Referring Physician Referring Physician: SADIE Identification/Chief Complaint Chief Complaint SOB Source Source: Chart review, Patient History of Present Illness Reason for Visit: THIS IS A 58 YR OLD WITH SOB DUE TO COPD. HE HAS HX OF SMOKING AND O2 DEPENDENT COPD. CURRENTLY UNDERGOING EVALUATION AND TX FOR THIS. ALSO BACTEREMIA NOTED. ID FOLLOWING WELL. NA OF 128 NOTED. OLD RECORDS SHOW AN ISSUE WITH THIS IN THE PAST WELL WITH NA OF 128 IN EARLY MARCH. REVIEW OF HIS MEDS INDICATED MULTIPLE AGENTS THAT COULD INCREASE ADH SECRETION INCLUDING AN SSRI. HE DENIED ANY EXCESSIVE THIRST BUT DOES HAVE A DRY MOUTH MOST OF THE TIME. NO EXCESSIVE WATER DRINKING OR POLYURIA PER PT. DOES HAVE AN SPC FOR BPH BUT NO RENAL ISSUES. ON A LOOP DIURETIC CHRONICALLY Past Medical History Past Medical History HYPONATREMIA Cardiovascular: HTN, Hyperlipidemia Pulmonary: COPD, Pneumonia, Other CENTRAL NERVOUS SYSTEM: CVA, Other Psych: Anxiety, Bipolar, Depression Renal/: No pertinent hx Past Surgical History Past Surgical History SPC FOR BPH Past Surgical History: Hernia Repair Family History Family History: Cancer, Heart Disease, Hypertension Current Problem List Problem List Problems Medical Problems: (1) COPD exacerbation Status: Acute (2) Urinary retention Status: Acute (3) Urinary tract infection Status: Acute Current Medications Current Medications Current Medications Albuterol/ Ipratropium (Duoneb) 3 ml 1X ONCE NEB Last administered on 04/26/19at 00:19; Start 04/26/19 at 00:30; Stop 04/26/19 at 00:31; Status DC Dexamethasone Sodium Phosphate (Decadron) 10 mg 1X ONCE IV Last administered on 04/26/19at 01:31; Start 04/26/19 at 00:30; Stop 04/26/19 at 00:31; Status DC Azithromycin 250 ml @ 250 mls/hr 1X ONCE IV Last administered on 04/26/19at 01:32; Start 04/26/19 at 00:30; Stop 04/26/19 at 01:29; Status DC Ondansetron HCl (Zofran) 4 mg PRN Q8HRS PRN IV NAUSEA/VOMITING 1ST CHOICE Last administered on 04/26/19at 01:31; Start 04/26/19 at 00:00; Stop 04/26/19 at 23:59; Status DC Acetaminophen (Tylenol) 650 mg PRN Q4HRS PRN PO FEVER Last administered on 04/26/19 01:32; Start 04/26/19 at 00:00; Stop 04/26/19 at 23:59; Status DC Albuterol/ Ipratropium (Duoneb) 3 ml RTQID NEB Last administered on 04/26/19 07:28; Start 04/26/19 at 08:00; Stop 04/26/19 at 10:27; Status DC Ceftriaxone Sodium (Rocephin) 1 gm 1X ONCE IVP Last administered on 04/26/19 04:30; Start 04/26/19 at 04:00; Stop 04/26/19 at 04:01; Status DC Atorvastatin Calcium (Lipitor) 20 mg HS PO Last administered on 04/29/19 20:29; Start 04/26/19 at 21:00 Duloxetine HCl (Cymbalta) 30 mg DAILY PO Last administered on 04/30/19 08:12; Start 04/26/19 at 11:30 Furosemide (Lasix) 20 mg DAILY PO Last administered on 04/30/19 08:15; Start 04/26/19 at 11:30 Guaifenesin (Mucinex) 1,200 mg BID PO Last administered on 04/30/19 08:11; Start 04/26/19 at 11:30 Albuterol/ Ipratropium (Duoneb) 3 ml RTQID IH Last administered on 04/30/19 11:31; Start 04/26/19 at 12:00 Levetiracetam (Keppra) 500 mg BID PO Last administered on 04/30/19 08:10; Start 04/26/19 at 11:30 Lorazepam (Ativan) 1 mg DAILY PO Last administered on 04/30/19 08:09; Start 04/26/19 at 11:30 Pantoprazole Sodium (Protonix) 40 mg DAILYAC PO Last administered on 04/30/19 08:15; Start 04/26/19 at 11:30 Tamsulosin HCl (Flomax) 0.4 mg DAILY PO Last administered on 04/30/19 08:14; Start 04/26/19 at 11:30 Albuterol Sulfate (Ventolin Neb Soln) 2.5 mg PRN Q6HRS PRN NEB SHORTNESS OF BREATH; Start 04/26/19 at 10:30 Non-Formulary Medication (Budesonide/ Formoterol Fumarate (Symbicort 160-4.5 Mcg Inhaler)) 2 puff BID IH ; Start 04/26/19 at 21:00; Status UNV Buspirone HCl (Buspar) 30 mg BID PO Last administered on 04/30/19 08:15; Start 04/26/19 at 11:30 Divalproex Sodium (Depakote) 500 mg BID PO Last administered on 04/30/19 08:12; Start 04/26/19 at 11:30 Mirtazapine (Remeron) 15 mg QHS PO Last administered on 04/29/19 20:29; Start 04/26/19 at 21:00 Montelukast Sodium (Singulair) 10 mg QHS PO Last administered on 04/29/19 20:28; Start 04/26/19 at 21:00 Nicotine (Nicoderm Cq 21mg) 1 patch DAILY TD Last administered on 04/30/19 08:15; Start 04/26/19 at 11:30 Oxybutynin Chloride (Ditropan) 5 mg BID PO Last administered on 04/30/19 08:12; Start 04/26/19 at 11:30 Quetiapine Fumarate (SEROquel) 300 mg QHS PO Last administered on 04/29/19 20:27; Start 04/26/19 at 21:00 Sertraline HCl (Zoloft) 150 mg DAILY PO Last administered on 04/30/19 08:14; Start 04/26/19 at 11:30 Topiramate (Topamax) 50 mg BID PO Last administered on 04/30/19 08:10; Start 04/26/19 at 11:30 Non-Formulary Medication ([ProAir HFA] ) 90 mcg QID IH ; Start 04/26/19 at 13:00; Status UNV Verapamil HCl (Calan) 80 mg TID PO Last administered on 04/30/19 08:13; Start 04/26/19 at 14:00 Dexamethasone Sodium Phosphate (Decadron) 4 mg Q6HRS IV Last administered on 04/28/19 06:00; Start 04/26/19 at 12:00; Stop 04/28/19 at 09:52; Status DC Ceftriaxone Sodium (Rocephin) 1 gm Q24H IVP Last administered on 04/30/19at 05:43; Start 04/27/19 at 06:00 Enoxaparin Sodium (Lovenox 40mg Syringe) 40 mg DAILY SQ Last administered on 04/30/19at 08:09; Start 04/26/19 at 11:30 Budesonide (Pulmicort) 0.5 mg RTBID NEB Last administered on 04/30/19at 07:30; Start 04/26/19 at 11:30 Lactobacillus Rhamnosus (Culturelle) 1 cap BID PO Last administered on 04/30/19at 08:11; Start 04/26/19 at 21:00 Vancomycin HCl 1.25 gm/Sodium Chloride 250 ml @ 166.667 mls/hr 1X ONCE IV Last administered on 04/27/19at 12:22; Start 04/27/19 at 11:30; Stop 04/27/19 at 12:59; Status DC Dexamethasone Sodium Phosphate (Decadron) 4 mg [id number] IV Last administered on 04/30/19at 05:44; Start 04/28/19 at 18:00; Stop 04/30/19 at 10:38; Status DC Sennosides (Senna) 8.6 mg BID PO Last administered on 04/30/19at 08:11; Start 04/28/19 at 21:00 Dexamethasone Sodium Phosphate (Decadron) 4 mg DAILY10 IV ; Start 05/01/19 at 10:00 Active Scripts Active Prednisone 50 Mg Tablet 1 Tab PO DAILY Azithromycin Tablet (Azithromycin) 250 Mg Tablet 250 Mg PO DAILY 4 Days Albuterol Sulfate Neb Soln (Albuterol Sulfate) 1.25 Mg/3 Ml Vial.neb 1 Vial NEB Q6HRS NICODERM CQ 21mg (Nicotine) 1 Each Patch.td24 1 Patch TP DAILY Mucinex (Guaifenesin) 600 Mg Tablet.er 1,200 Mg PO BID Flomax (Tamsulosin Hcl) 0.4 Mg Cap.er.24h 1 Cap PO DAILY Duoneb 0.5-3(2.5) Mg/3 Ml (Albuterol/Ipratropium) 3 Ml Ampul.neb 3 Ml IH QID Reported Mirtazapine 15 Mg Tablet 1 Tab PO DAILY Duloxetine Hcl 30 Mg Capsule.dr 1 Cap PO DAILY Quetiapine Fumarate 300 Mg Tablet 1 Tab PO DAILY Divalproex Sodium 500 Mg Tablet.dr 1 Tab PO BID Levetiracetam 500 Mg Tablet 1 Tab PO BID Oxybutynin Chloride Er (Oxybutynin Chloride) 10 Mg Tab.er.24 1 Tab PO DAILY Lorazepam 1 Mg Tablet 1 Tab PO DAILY Furosemide 20 Mg Tablet 1 Tab PO DAILY Atorvastatin Calcium 20 Mg Tablet 20 Mg PO HS [ProAir HFA] 90 Mcg IH QID [verapamil 80mg TID] 80 Mg PO TID Protonix (Pantoprazole Sodium) 40 Mg Tablet.dr 1 Tab PO DAILY Zoloft (Sertraline Hcl) 100 Mg Tablet 1.5 Tab PO DAILY Topiramate 50 Mg Tablet 1 Tab PO BID Symbicort 160-4.5 Mcg Inhaler (Budesonide/Formoterol Fumarate) 10.2 Gm Hfa.aer.ad 2 Puff IH BID Singulair Tablet (Montelukast Sodium) 10 Mg Tablet 10 Mg PO HS Buspirone Hcl 30 Mg Tablet 1 Tab PO BID Allergies Allergies: Coded Allergies: codeine (Verified Allergy, Intermediate, RASH, 10/10/17) ROS General: YES: Fatigue PSYCHOLOGICAL ROS: YES: Anxiety, Depression Eyes: Yes Decreased vision HEENT: YES: Miah ALLERGY AND IMMUNOLOGY: YES: Seasonal Allergies ENDOCRINE: YES: Other (LOW NA) Respiratory: YES: Cough, Shortness of breath Gastrointestinal: Yes Constipation Genitourinary: YES Other (HAS SPC FOR BPH) Musculoskeletal: Yes Muscular Weakness Neurological: Yes Weakness Skin: Yes Dry Skin Physical Exam General: Alert, Oriented X3, Cooperative, No acute distress HEENT: Atraumatic, PERRLA, EOMI, Mucous membr. moist/pink Lungs: Clear to auscultation Heart: Regular rate, Normal S1, Normal S2 Abdomen: Normal bowel sounds, Soft Extremities: No clubbing Skin: No breakdown Neuro: Normal speech, Sensation intact Psych/Mental Status: Mental status NL, Mood NL MUSCULOSKELETAL: No joint tenderness, No deformity, No swelling Vitals VITALS Vital Signs Date Time Temp Pulse Resp B/P (MAP) Pulse Ox O2 Delivery O2 Flow Rate FiO2 04/30/19 11:32 97 Nasal Cannula 2.0 04/30/19 08:13 71 129/42 04/30/19 07:10 97.5 20 97.5 Labs Labs Laboratory Tests Test 04/28/19 12:15 04/28/19 16:44 04/28/19 21:31 04/29/19 02:40 Glucose (Fingerstick) 135 mg/dL (70-99) 116 mg/dL (70-99) 120 mg/dL (70-99) White Blood Count 11.9 x10^3/uL (4.0-11.0) Red Blood Count 3.69 x10^6/uL (4.30-5.70) Hemoglobin 12.0 g/dL (13.0-17.5) Hematocrit 35.7 % (39.0-53.0) Mean Corpuscular Volume 97 fL (79-100) Mean Corpuscular Hemoglobin 33 pg (25-35) Mean Corpuscular Hemoglobin Concent 34 g/dL (31-37) Red Cell Distribution Width 13.5 % (11.5-14.5) Platelet Count 191 x10^3/uL (140-400) Neutrophils (%) (Auto) 90 % (31-73) Lymphocytes (%) (Auto) 5 % (24-48) Monocytes (%) (Auto) 5 % (0-9) Eosinophils (%) (Auto) 0 % (0-3) Basophils (%) (Auto) 0 % (0-3) Neutrophils # (Auto) 10.7 x10^3uL (1.8-7.7) Lymphocytes # (Auto) 0.6 x10^3/uL (1.0-4.8) Monocytes # (Auto) 0.6 x10^3/uL (0.0-1.1) Eosinophils # (Auto) 0.0 x10^3/uL (0.0-0.7) Basophils # (Auto) 0.0 x10^3/uL (0.0-0.2) Segmented Neutrophils % 91 % (35-66) Lymphocytes % 7 % (24-48) Monocytes % 2 % (0-10) Platelet Estimate Adequate (ADEQUATE) Sodium Level 128 mmol/L (136-145) Potassium Level 4.2 mmol/L (3.5-5.1) Chloride Level 94 mmol/L (98-107) Carbon Dioxide Level 26 mmol/L (21-32) Anion Gap 8 (6-14) Blood Urea Nitrogen 21 mg/dL (8-26) Creatinine 0.9 mg/dL (0.7-1.3) Estimated GFR (Cockcroft-Gault) 86.1 Glucose Level 124 mg/dL (70-99) Calcium Level 8.4 mg/dL (8.5-10.1) Test 04/29/19 07:24 04/29/19 11:33 04/29/19 17:23 04/29/19 21:20 Glucose (Fingerstick) 99 mg/dL (70-99) 128 mg/dL (70-99) 141 mg/dL (70-99) 113 mg/dL (70-99) Test 04/30/19 07:24 Glucose (Fingerstick) 89 mg/dL (70-99) Laboratory Tests Test 04/29/19 17:23 04/29/19 21:20 04/30/19 07:24 Glucose (Fingerstick) 141 mg/dL (70-99) 113 mg/dL (70-99) 89 mg/dL (70-99) Assessment/Plan Assessment/Plan IMP HYPONATREMIA-MOST LIKELY SIADH FROM HIS MEDS-HAD NA OF 128 IN MARCH WELL BACTEREMIA AECOPD HX OF BPH AND SPC ANXIETY/DEPRESSION HX OF SEIZURES TOBACCOISM PLAN CHECK URINE LYTES AND TSH MAY NEED TO HAVE DECLOMYCIN CHRONICALLY ENC LIMITING FLUID INTAKE WILL FOLLOW JOSEPH ARCEO MD April 30, 2019 11:42
[2019-04-30 12:30] LABS: BASO % 0 % (0-3); EOS % 0 % (0-3); HEMATOCRIT 41.9 % (39.0-53.0); HEMOGLOBIN 13.9 g/dL (13.0-17.5); LYMPH # 0.5 x10^3/uL (1.0-4.8); LYMPH % 6 % (24-48); MEAN CORPUSCULAR HEMOGLOBIN 32 pg (25-35); MEAN CORPUSCULAR HGB CONC 33 g/dL (31-37); MEAN CORPUSCULAR VOLUME 97 fL (79-100); MONO # 0.6 x10^3/uL (0.0-1.1); MONO % 7 % (0-9); NEUT # 7.9 x10^3uL (1.8-7.7); NEUT % 87 % (31-73); PLATELET COUNT 217 x10^3/uL (140-400); RED CELL DISTRIBUTION WIDTH 13.6 % (11.5-14.5); WHITE BLOOD COUNT 9.1 x10^3/uL (4.0-11.0)
[2019-04-30 12:39] LABS: CALCIUM 8.5 mg/dL (8.5-10.1); CREATININE 0.8 mg/dL (0.7-1.3); GFR 98.6; POTASSIUM 4.4 mmol/L (3.5-5.1)
[2019-04-30 15:20] VITALS: BP 126/65
[2019-04-30 19:10] VITALS: BP 134/59
[2019-04-30] MEDS: MONTELUKAST SODIUM 10 MG TABLET. PO SCH (20:51)
[2019-04-30] MEDS: ATORVASTATIN CALCIUM 20 MG TABLET PO SCH (20:51)
[2019-04-30] MEDS: MIRTAZAPINE 15 MG TABLET PO SCH (20:51)
[2019-04-30] MEDS: QUEtiapine 100 MG TABLET. PO SCH (20:51)
[2019-04-30 23:25] VITALS: BP 118/52
[2019-05-01 01:08] LABS: SODIUM, URINE <60 mmol/L (Not Estab.); UR POTASSIUM 28.1 mmol/L (Not Estab.)
[2019-05-01 03:12] VITALS: BP 122/62
[2019-05-01] MEDS: cefTRIAXone IV Push 1 GM VIAL. IVP SCH (05:45)
[2019-05-01 05:55] LABS: CALCIUM 8.6 mg/dL (8.5-10.1); GFR 76.2; POTASSIUM 4.4 mmol/L (3.5-5.1)
[2019-05-01] MEDS: IPRATRPIUM/ALBUTEROL 0.5/2.5MG 3 ML NEBU. IH SCH ×3 (06:59→15:43)
[2019-05-01] MEDS: BUDESONIDE 0.5 MG/2 ML NEBU. NEB SCH (06:59)
[2019-05-01 07:20] VITALS: BP 103/56
--- NOTE | 2019-05-01 09:19 | PDOC ---
Infectious Disease Note Subjective: Subjective pt says feels better no f/c/n/v/d sob and cough are improving pt is eager for dc home today has constipation, no bm for 5 days passes gas tolerating po intake well ROS: ROS Negative except for above. Vital Signs: Vital Signs Vital Signs Date Time Temp Pulse Resp B/P (MAP) Pulse Ox O2 Delivery O2 Flow Rate FiO2 05/01/19 07:20 97.5 69 20 103/56 (72) 95 Nasal Cannula 2.0 97.5 Physical Exam: PHYSICAL EXAM GENERAL: Alert, oriented x 3, pleasant male in no acute distress, lying comfortably in bed on nasal O2. HEENT: Normocephalic, atraumatic, anicteric. No thrush. Oral mucosa moist. NECK: Supple, no JVD, no thyromegaly. LUNGS: Decreased breath sounds, otherwise clear. No wheezing. HEART: S1, S2 with no gallops or murmurs. ABDOMEN: Soft, bowel sounds present, nontender, nondistended. Suprapubic catheter site looks okay, intact, changed in the ER yesterday. EXTREMITIES: No edema, no cyanosis. NEUROLOGIC: Alert and oriented x 3, grossly nonfocal. PSYCHIATRIC: Cooperative, appropriate mood and affect. Medications: Inpatient Meds: Current Medications Medications (Trade) Dose Ordered Sig/Lester Start Time Stop Time Status Last Admin Dose Admin Acetaminophen (Tylenol) 650 mg PRN Q4HRS PRN 04/26/19 00:00 04/26/19 23:59 DC 04/26/19 01:32 650 MG Albuterol Sulfate (Ventolin Neb Soln) 2.5 mg PRN Q6HRS PRN 04/26/19 10:30 Albuterol/ Ipratropium (Duoneb) 3 ml RTQID 04/26/19 12:00 05/01/19 06:59 3 ML Atorvastatin Calcium (Lipitor) 20 mg HS 04/26/19 21:00 04/30/19 20:51 20 MG Azithromycin 250 ml @ 250 mls/hr 1X ONCE 04/26/19 00:30 04/26/19 01:29 DC 04/26/19 01:32 250 MLS/HR Budesonide (Pulmicort) 0.5 mg RTBID 04/26/19 11:30 05/01/19 06:59 0.5 MG Buspirone HCl (Buspar) 30 mg BID 04/26/19 11:30 04/30/19 20:50 30 MG Ceftriaxone Sodium (Rocephin) 1 gm Q24H 04/27/19 06:00 05/01/19 05:45 1 GM Dexamethasone Sodium Phosphate (Decadron) 4 mg DAILY10 05/01/19 10:00 Divalproex Sodium (Depakote) 500 mg BID 04/26/19 11:30 04/30/19 20:50 500 MG Duloxetine HCl (Cymbalta) 30 mg DAILY 04/26/19 11:30 04/30/19 08:12 30 MG Enoxaparin Sodium (Lovenox 40mg Syringe) 40 mg DAILY 04/26/19 11:30 04/30/19 08:09 40 MG Furosemide (Lasix) 20 mg DAILY 04/26/19 11:30 04/30/19 08:15 20 MG Guaifenesin (Mucinex) 1,200 mg BID 04/26/19 11:30 04/30/19 20:51 1,200 MG Lactobacillus Rhamnosus (Culturelle) 1 cap BID 04/26/19 21:00 04/30/19 20:51 1 CAP Levetiracetam (Keppra) 500 mg BID 04/26/19 11:30 04/30/19 20:51 500 MG Lorazepam (Ativan) 1 mg DAILY 04/26/19 11:30 04/30/19 08:09 1 MG Mirtazapine (Remeron) 15 mg QHS 04/26/19 21:00 04/30/19 20:51 15 MG Montelukast Sodium (Singulair) 10 mg QHS 04/26/19 21:00 04/30/19 20:51 10 MG Nicotine (Nicoderm Cq 21mg) 1 patch DAILY 04/26/19 11:30 04/30/19 08:15 1 PATCH Non-Formulary Medication (Budesonide/ Formoterol Fumarate (Symbicort 160-4.5 Mcg Inhaler)) 2 puff BID 04/26/19 21:00 UNV Non-Formulary Medication ([ProAir HFA] ) 90 mcg QID 04/26/19 13:00 UNV Ondansetron HCl (Zofran) 4 mg PRN Q8HRS PRN 04/26/19 00:00 04/26/19 23:59 DC 04/26/19 01:31 4 MG Oxybutynin Chloride (Ditropan) 5 mg BID 04/26/19 11:30 04/30/19 20:51 5 MG Pantoprazole Sodium (Protonix) 40 mg DAILYAC 04/26/19 11:30 04/30/19 08:15 40 MG Quetiapine Fumarate (SEROquel) 300 mg QHS 04/26/19 21:00 04/30/19 20:51 300 MG Sennosides (Senna) 8.6 mg BID 04/28/19 21:00 04/30/19 20:51 8.6 MG Sertraline HCl (Zoloft) 150 mg DAILY 04/26/19 11:30 04/30/19 08:14 150 MG Tamsulosin HCl (Flomax) 0.4 mg DAILY 04/26/19 11:30 04/30/19 08:14 0.4 MG Topiramate (Topamax) 50 mg BID 04/26/19 11:30 04/30/19 20:51 50 MG Vancomycin HCl 1.25 gm/Sodium Chloride 250 ml @ 166.667 mls/hr 1X ONCE 04/27/19 11:30 04/27/19 12:59 DC 04/27/19 12:22 166.667 MLS/HR Verapamil HCl (Calan) 80 mg TID 04/26/19 14:00 04/30/19 20:50 80 MG Labs: Lab Laboratory Tests Test 04/30/19 10:58 04/30/19 11:46 04/30/19 12:00 04/30/19 16:57 Glucose (Fingerstick) 107 mg/dL (70-99) 110 mg/dL (70-99) White Blood Count 9.1 x10^3/uL (4.0-11.0) Red Blood Count 4.30 x10^6/uL (4.30-5.70) Hemoglobin 13.9 g/dL (13.0-17.5) Hematocrit 41.9 % (39.0-53.0) Mean Corpuscular Volume 97 fL (79-100) Mean Corpuscular Hemoglobin 32 pg (25-35) Mean Corpuscular Hemoglobin Concent 33 g/dL (31-37) Red Cell Distribution Width 13.6 % (11.5-14.5) Platelet Count 217 x10^3/uL (140-400) Neutrophils (%) (Auto) 87 % (31-73) Lymphocytes (%) (Auto) 6 % (24-48) Monocytes (%) (Auto) 7 % (0-9) Eosinophils (%) (Auto) 0 % (0-3) Basophils (%) (Auto) 0 % (0-3) Neutrophils # (Auto) 7.9 x10^3uL (1.8-7.7) Lymphocytes # (Auto) 0.5 x10^3/uL (1.0-4.8) Monocytes # (Auto) 0.6 x10^3/uL (0.0-1.1) Eosinophils # (Auto) 0.0 x10^3/uL (0.0-0.7) Basophils # (Auto) 0.0 x10^3/uL (0.0-0.2) Sodium Level 130 mmol/L (136-145) Potassium Level 4.4 mmol/L (3.5-5.1) Chloride Level 96 mmol/L (98-107) Carbon Dioxide Level 26 mmol/L (21-32) Anion Gap 8 (6-14) Blood Urea Nitrogen 20 mg/dL (8-26) Creatinine 0.8 mg/dL (0.7-1.3) Estimated GFR (Cockcroft-Gault) 98.6 Glucose Level 96 mg/dL (70-99) Calcium Level 8.5 mg/dL (8.5-10.1) Urine Sodium <60 mmol/L (Not Estab.) Urine Potassium 28.1 mmol/L (Not Estab.) Urine Chloride <60 mmol/L (Not Estab.) Test 04/30/19 19:37 05/01/19 04:07 05/01/19 07:22 Glucose (Fingerstick) 101 mg/dL (70-99) 79 mg/dL (70-99) Sodium Level 134 mmol/L (136-145) Potassium Level 4.4 mmol/L (3.5-5.1) Chloride Level 101 mmol/L (98-107) Carbon Dioxide Level 27 mmol/L (21-32) Anion Gap 6 (6-14) Blood Urea Nitrogen 22 mg/dL (8-26) Creatinine 1.0 mg/dL (0.7-1.3) Estimated GFR (Cockcroft-Gault) 76.2 Glucose Level 84 mg/dL (70-99) Calcium Level 8.6 mg/dL (8.5-10.1) Thyroid Stimulating Hormone (TSH) 0.946 uIU/mL (0.358-3.74) Micro RUN DATE: 04/30/19 PAGE 1 RUN TIME: 330 [facility] [address] [place] [address] Sundeep Gomez M.D., Bleaching Machine Operator ----- PATIENT: JADON HONEYCUTT ACCT: [id number] LOC: [address] [place] [address] U: [id number] AGE/SX: 58/M ROOM: 654 RE04/25/[address]: JEANNETTE NOEL MD : 1960 BED: 1 DIS: STATUS: ADM IN TLOC: SPEC #: [id number] TORIE: 04/25/19 STATUS: RES REQ #: [id number] RECD: 04/26/19-[address]: MARY FOREMAN DO SOURCE: BLOOD ENTR: 04/27/19-[address]: JEANNETTE NOEL MD [facility]: ORDERED: BLD CULT - LC Procedure Result BLOOD CULTURE LC Preliminary Preliminary report BLD CULT RESULT 1 Preliminary Comment Coagulase negative Staphylococcus species. Performed at: DA - [address], [place], [place] [id number] Professional Nursing Assistant: VALE Steele MD, Phone: [phone] RUN DATE: 04/30/19 PAGE 1 RUN TIME: 919 [facility] [address] [place] [address] Sundeep Gomez M.D., Bleaching Machine Operator PATIENT: JADON HONEYCUTT ACCT: [id number] LOC: [address] [place] [address] U: [id number] AGE/SX: 58/M ROOM: [facility] 04/25/[address]: JEANNETTE NOEL MD : 1960 BED: 1 DIS: STATUS: ADM IN TLOC: SPEC #: [id number] TORIE: 04/26/19 STATUS: COMP REQ #: [id number] RECD: 04/26/[address]: MARY FOREMAN DO SOURCE: VOID ENTR: 04/26/[address] [facility] [address]: JEANNETTE NOEL MD [facility]: ORDERED: URINE CULTURE Procedure Result URINE CULTURE Final Final report URINE CULTURE RES 1 Final Serratia marcescens 50,000-100,000 colony forming units per mL ANTIMICROBIAL SUSCEPTIBILITY Final Comment S = Susceptible; I = Intermediate; R = Resistant P = Positive; N = Negative MICS are expressed in micrograms per mL Antibiotic RSLT#1 RSLT#2 RSLT#3 RSLT#4 Amoxicillin/Clavulanic Acid R =R Cefazolin R>=64 Cefepime S<=0.12 Ceftriaxone S<=0.25 Cefuroxime R>=64 Ciprofloxacin S =0.5 Ertapenem S<=0.12 Gentamicin S<=1 Levofloxacin S =1 Meropenem S<=0.25 Nitrofurantoin R =256 Tetracycline R>=16 Tobramycin S<=1 Trimethoprim/Sulfa S<=20 Performed at: DA - [facility] [address] [facility] [address], [place], [place] [id number] Professional Nursing Assistant: VALE Steele MD, Phone: [phone] Objective: Assessment: coag neg staph bacteremia 1/4 positive POA,possible contaminant COPD exacerbation resolved Urinary retention UC 50-100K serratia,likely colonization as he is improving without directed therapy SPC changed this admission Constipation Plan: Plan of Care QUE sen on discharge d/w SHAE Valente MD May 01, 2019 09:19
[2019-05-01] MEDS: busPIRone 10 MG TABLET. PO SCH (09:38)
[2019-05-01] MEDS: FUROSEMIDE 20 MG TABLET PO SCH (09:40)
[2019-05-01] MEDS: DIVALPROEX DELAYED RELEASE 500 MG TABLET.DR. PO SCH (09:40)
[2019-05-01] MEDS: LORazepam 1 MG TABLET PO SCH (09:40)
[2019-05-01] MEDS: SENNOSIDES 8.6 MG TABLET PO SCH (09:41)
[2019-05-01] MEDS: TAMSULOSIN 0.4 MG CAP.ER.24H. PO SCH (09:41)
[2019-05-01] MEDS: PANTOPRAZOLE 40 MG TABLET.DR. PO SCH (09:41)
[2019-05-01] MEDS: DULoxetine HCL 30 MG CAPSULE.DR PO SCH (09:41)
[2019-05-01] MEDS: OXYBUTYNIN CHLORIDE 5 MG TABLET PO SCH (09:42)
[2019-05-01] MEDS: LACTOBACILLUS RHAMNOSUS GG 1 CAPSULE. PO SCH (09:43)
[2019-05-01] MEDS: VERAPAMIL 40 MG TABLET. PO SCH ×2 (09:43→14:00)
[2019-05-01] MEDS: SERTRALINE 50 MG TABLET. PO SCH (09:43)
[2019-05-01] MEDS: TOPIRAMATE 25 MG TABLET. PO SCH (09:44)
[2019-05-01] MEDS: levETIRAcetam 500 MG TABLET PO SCH (09:44)
[2019-05-01] MEDS: ENOXAPARIN 40 MG/0.4 ML SYRINGE. SQ SCH (09:45)
[2019-05-01] MEDS: NICOTINE 21MG PATCH. TD SCH (09:45)
[2019-05-01] MEDS ORDERED: DEXAMETHASONE SOD PHOS 4 MG/ML VIAL IV SCH (10:00)
--- NOTE | 2019-05-01 10:58 | PDOC3 ---
IM DISCHARGE SUMMARY Date of Admission Date of Admission Date of Admission: April 25, 2019 at 23:54 Date of Discharge Date of Discharge 05/01/19 Primary Diagnosis Primary Diagnosis 1. Chronic obstructive pulmonary disease with acute exacerbation. 2. Acute bronchitis 3. Suprapubic catheter. 4. Anxiety. 5. Depression. 6. Seizures. 7. Smoking addiction. 8. Acute on chronic respiratory failure 9. Hyponatremia 10.Colonization with serratia- bladder Consults Consults Olivier Galaviz MD, Labs Labs Laboratory Tests Test 04/28/19 12:15 04/28/19 16:44 04/28/19 21:31 04/29/19 02:40 Glucose (Fingerstick) 135 mg/dL (70-99) 116 mg/dL (70-99) 120 mg/dL (70-99) White Blood Count 11.9 x10^3/uL (4.0-11.0) Red Blood Count 3.69 x10^6/uL (4.30-5.70) Hemoglobin 12.0 g/dL (13.0-17.5) Hematocrit 35.7 % (39.0-53.0) Mean Corpuscular Volume 97 fL (79-100) Mean Corpuscular Hemoglobin 33 pg (25-35) Mean Corpuscular Hemoglobin Concent 34 g/dL (31-37) Red Cell Distribution Width 13.5 % (11.5-14.5) Platelet Count 191 x10^3/uL (140-400) Neutrophils (%) (Auto) 90 % (31-73) Lymphocytes (%) (Auto) 5 % (24-48) Monocytes (%) (Auto) 5 % (0-9) Eosinophils (%) (Auto) 0 % (0-3) Basophils (%) (Auto) 0 % (0-3) Neutrophils # (Auto) 10.7 x10^3uL (1.8-7.7) Lymphocytes # (Auto) 0.6 x10^3/uL (1.0-4.8) Monocytes # (Auto) 0.6 x10^3/uL (0.0-1.1) Eosinophils # (Auto) 0.0 x10^3/uL (0.0-0.7) Basophils # (Auto) 0.0 x10^3/uL (0.0-0.2) Segmented Neutrophils % 91 % (35-66) Lymphocytes % 7 % (24-48) Monocytes % 2 % (0-10) Platelet Estimate Adequate (ADEQUATE) Sodium Level 128 mmol/L (136-145) Potassium Level 4.2 mmol/L (3.5-5.1) Chloride Level 94 mmol/L (98-107) Carbon Dioxide Level 26 mmol/L (21-32) Anion Gap 8 (6-14) Blood Urea Nitrogen 21 mg/dL (8-26) Creatinine 0.9 mg/dL (0.7-1.3) Estimated GFR (Cockcroft-Gault) 86.1 Glucose Level 124 mg/dL (70-99) Calcium Level 8.4 mg/dL (8.5-10.1) Test 04/29/19 07:24 04/29/19 11:33 04/29/19 17:23 04/29/19 21:20 Glucose (Fingerstick) 99 mg/dL (70-99) 128 mg/dL (70-99) 141 mg/dL (70-99) 113 mg/dL (70-99) Test 04/30/19 07:24 04/30/19 10:58 04/30/19 11:46 04/30/19 12:00 Glucose (Fingerstick) 89 mg/dL (70-99) 107 mg/dL (70-99) White Blood Count 9.1 x10^3/uL (4.0-11.0) Red Blood Count 4.30 x10^6/uL (4.30-5.70) Hemoglobin 13.9 g/dL (13.0-17.5) Hematocrit 41.9 % (39.0-53.0) Mean Corpuscular Volume 97 fL (79-100) Mean Corpuscular Hemoglobin 32 pg (25-35) Mean Corpuscular Hemoglobin Concent 33 g/dL (31-37) Red Cell Distribution Width 13.6 % (11.5-14.5) Platelet Count 217 x10^3/uL (140-400) Neutrophils (%) (Auto) 87 % (31-73) Lymphocytes (%) (Auto) 6 % (24-48) Monocytes (%) (Auto) 7 % (0-9) Eosinophils (%) (Auto) 0 % (0-3) Basophils (%) (Auto) 0 % (0-3) Neutrophils # (Auto) 7.9 x10^3uL (1.8-7.7) Lymphocytes # (Auto) 0.5 x10^3/uL (1.0-4.8) Monocytes # (Auto) 0.6 x10^3/uL (0.0-1.1) Eosinophils # (Auto) 0.0 x10^3/uL (0.0-0.7) Basophils # (Auto) 0.0 x10^3/uL (0.0-0.2) Sodium Level 130 mmol/L (136-145) Potassium Level 4.4 mmol/L (3.5-5.1) Chloride Level 96 mmol/L (98-107) Carbon Dioxide Level 26 mmol/L (21-32) Anion Gap 8 (6-14) Blood Urea Nitrogen 20 mg/dL (8-26) Creatinine 0.8 mg/dL (0.7-1.3) Estimated GFR (Cockcroft-Gault) 98.6 Glucose Level 96 mg/dL (70-99) Calcium Level 8.5 mg/dL (8.5-10.1) Urine Sodium <60 mmol/L (Not Estab.) Urine Potassium 28.1 mmol/L (Not Estab.) Urine Chloride <60 mmol/L (Not Estab.) Test 04/30/19 16:57 04/30/19 19:37 05/01/19 04:07 05/01/19 07:22 Glucose (Fingerstick) 110 mg/dL (70-99) 101 mg/dL (70-99) 79 mg/dL (70-99) Sodium Level 134 mmol/L (136-145) Potassium Level 4.4 mmol/L (3.5-5.1) Chloride Level 101 mmol/L (98-107) Carbon Dioxide Level 27 mmol/L (21-32) Anion Gap 6 (6-14) Blood Urea Nitrogen 22 mg/dL (8-26) Creatinine 1.0 mg/dL (0.7-1.3) Estimated GFR (Cockcroft-Gault) 76.2 Glucose Level 84 mg/dL (70-99) Calcium Level 8.6 mg/dL (8.5-10.1) Thyroid Stimulating Hormone (TSH) 0.946 uIU/mL (0.358-3.74) Brief hospital course Brief hospital course The patient is a 58-year-old male, patient of Dr. Jeannette Noel, who has history of chronic COPD, on home oxygen 2 liters. She also has a suprapubic catheter, has history of anxiety, bipolar and seizures. She was having problems with shortness of breath with wheezing and came to the Emergency Room. Chest x-ray was negative for acute infiltrates. She was given breathing treatment, did not improve and was admitted to the hospital. She was given IV Solu-Medrol and IV antibiotics. For more details regarding the past history, family history, social history, surgical history and other details, please refer to History and Physical. I'll decrease IV Decadron to 4mg IV 2 times a day. Continue breathing treatment aerosol treatment oxygenation and IV Rocephin. He has gram-positive bacteremia 1 out of 4. This could be possibly a contaminant. ID consult has been obtained. Continue IV Rocephin. Follow up cultures. Hyponatremia- sodium is 130. Recheck tomorrow. Mild hyperglycemia. Monitor blood sugars. Blood cultures coag neg staph.contaminant. Urine c/s Serratia marascens - 50 to 100k resistant to cephalosporins.Colonization,suprapubic cath changed. Exacerbation of COPD- better.Discharge on tapering steroids- 40-30-20-10 mg decrease every 3 days.No antibiotics.IV Rocephin completed. Medications Medications reviewed and reconciled for discharge. Allergy Allergies Coded Allergies Type Severity Reaction Last Updated Verified codeine Allergy Intermediate RASH 10/10/17 Yes Follow up in 5 days. DISPOSITION: Home health services Comments Discharge Management - 35 minutes. For other details please refer to discharge instructions JEANNETTE NOEL MD May 01, 2019 10:58
[2019-05-01 11:00] VITALS: BP 120/64
--- NOTE | 2019-05-01 11:50 | PDOC ---
Renal-Progress Notes Subjective Notes Notes NOTHING NEW History of Present Illness Hx of present illness STABLE Vitals Vitals Vital Signs Date Time Temp Pulse Resp B/P (MAP) Pulse Ox O2 Delivery O2 Flow Rate FiO2 05/01/19 11:27 99 Nasal Cannula 2.0 05/01/19 11:00 97.3 68 20 120/64 (82) 97.3 Weight Weight [ ] I.O. Intake and Output Intake and Output 05/01/19 07:00 Intake Total 1800 ml Output Total 3000 ml Balance -1200 ml Intake Oral 1800 ml Output Urine Total 3000 ml Labs Labs Laboratory Tests Test 04/30/19 12:00 04/30/19 16:57 04/30/19 19:37 05/01/19 04:07 Urine Sodium <60 mmol/L (Not Estab.) Urine Potassium 28.1 mmol/L (Not Estab.) Urine Chloride <60 mmol/L (Not Estab.) Glucose (Fingerstick) 110 mg/dL (70-99) 101 mg/dL (70-99) Sodium Level 134 mmol/L (136-145) Potassium Level 4.4 mmol/L (3.5-5.1) Chloride Level 101 mmol/L (98-107) Carbon Dioxide Level 27 mmol/L (21-32) Anion Gap 6 (6-14) Blood Urea Nitrogen 22 mg/dL (8-26) Creatinine 1.0 mg/dL (0.7-1.3) Estimated GFR (Cockcroft-Gault) 76.2 Glucose Level 84 mg/dL (70-99) Calcium Level 8.6 mg/dL (8.5-10.1) Thyroid Stimulating Hormone (TSH) 0.946 uIU/mL (0.358-3.74) Test 05/01/19 07:22 05/01/19 11:14 Glucose (Fingerstick) 79 mg/dL (70-99) 87 mg/dL (70-99) Micro Micro Microbiology 04/26/19 Blood Culture - Final, Complete NO GROWTH AFTER 5 DAYS 04/26/19 Urine Culture - Final, Complete 04/26/19 Urine Culture Result 1 (MARCELO) - Final, Complete 04/26/19 Antimicrobic Susceptibility - Final, Complete Review of Systems Constitutional: yes: alert, oriented Ears/Nose/Throat: Yes: no symptom reported Eyes: Yes: no symptom reported Pulmonary: Yes no symptom reported Cardiovascular: Yes no symptom reported Gastrointestional: Yes: no symptom reported Genitourinary: Yes: no symptom reported Musculoskeletal: Yes: no symptom reported Skin: Yes no symptom reported Psychiatric/Neurological: Yes: no symptom reported Endocrine: Yes: no symptom reported Physical Exam General Appearance: no apparent distress Skin: warm Respiratory: decreased breath sounds Heart: S1S2 Abdomen: soft, bowel sounds present Genitourinary: bladder flat Extremities: pulses present Neurology: alert Assessment Assessment IMP HYPONATREMIA-MOST LIKELY SIADH-IMPROVED BACTEREMIA AECOPD HX OF BPH AND SPC ANXIETY/DEPRESSION HX OF SEIZURES TOBACCOISM PLAN MAY NEED TO HAVE DECLOMYCIN CHRONICALLY IF IT IS A RECURRENT PROBLEM ENC LIMITING FLUID INTAKE D/C PLANS NOTED JOSEPH ARCEO MD May 01, 2019 11:50
--- NOTE | 2019-05-01 14:26 | NUR ---
Pt is current with [facility] . Spoke with Saira at [facility] and faxed resumption orders. RN notified.
[2019-05-01 15:00] VITALS: BP 154/61
--- NOTE | 2019-05-01 16:07 | NUR ---
Pt dishcarged to home per public transportation. Discharge teaching instructions given to pt. Verbalized understanding.
[2019-05-11] MEDS ORDERED: CEFD300C PO (10:29)
[2019-05-11] MEDS ORDERED: PRED-220 PO (10:29)
[2019-05-11] MEDS ORDERED: DOXY100T PO (10:29)
== END 2019-05-01 16:07 | disposition home health service (06) | DRG 189 ==
LOC: ER 23:43 → 6 SOUTH 23:54
PROVIDERS: ADMIT Internal Medicine; ATTEND Internal Medicine
DX: J96.20 Acute and chronic respiratory failure, unspecified whether with hypoxia or hypercapnia (principal); J44.1 Chronic obstructive pulmonary disease with (acute) exacerbation; E87.1 Hypo-osmolality and hyponatremia; N39.0 Urinary tract infection, site not specified; R78.81 Bacteremia; J44.0 Chronic obstructive pulmonary disease with (acute) lower respiratory infection; E78.5 Hyperlipidemia, unspecified; F31.9 Bipolar disorder, unspecified; F41.9 Anxiety disorder, unspecified; G40.909 Epilepsy, unspecified, not intractable, without status epilepticus; I10 Essential (primary) hypertension; J20.9 Acute bronchitis, unspecified; N40.1 Benign prostatic hyperplasia with lower urinary tract symptoms; R33.8 Other retention of urine; R73.9 Hyperglycemia, unspecified; K59.00 Constipation, unspecified; N40.0 Benign prostatic hyperplasia without lower urinary tract symptoms; Z82.49 Family history of ischemic heart disease and other diseases of the circulatory system; Z86.73 Personal history of transient ischemic attack (TIA), and cerebral infarction without residual deficits; Z99.81 Dependence on supplemental oxygen; Z87.01 Personal history of pneumonia (recurrent); Z88.5 Allergy status to narcotic agent
CPT/HCPCS: 36415; 36600; 71046; 80048; 80053; 81001; 82436; 82553; 82962; 83605; 83880; 84133; 84300; 84443; 84484; 85007; 85025; 87040; 87077; 87086; 87186; 87205; 93005; 94640; 94760; 96365; 96375; J0456; J0696; J1100; J1650; J2405; J3370; J7050; J7620; J7626; 99285-25; J7030